=== PATIENT | female | born 1955 | race Caucasian/White ===

== ENCOUNTER 2017-12-16 20:49 | Emergency (ER) | payer MEDICARE, MEDICAID ==
[2017-12-16] MEDS ORDERED: SODIUM CHLORIDE 0.9% 1,000 ML IV ONE ×2 (21:27→22:02)
[2017-12-16] MEDS ORDERED: ONDANSETRON 4 MG/2 ML VIAL IVP STA (21:27)
[2017-12-16 21:38] LABS: BILIRUBIN,URINE NEGATIVE (NEGATIVE); GLUCOSE, URINE (UA) NEGATIVE (NEGATIVE); KETONES,URINE (UA) TRACE mg/dL (NEGATIVE); LEUKOCYTE ESTERASE, URINE LARGE (NEGATIVE); NITRITE,URINE POSITIVE (NEGATIVE); OCCULT BLOOD,URINE MODERATE (NEGATIVE); PH,URINE 5.5 PH (5.0-7.5); PROTEIN,URINE 100 mg/dL (NEGATIVE); UROBILINOGEN,URINE 0.2 (NORMAL) E.U./dL (NORMAL)
[2017-12-16 21:40] LABS: CLARITY,URINE CLOUDY (CLEAR)
[2017-12-16 21:47] LABS: RBC,URINE 0-5 /HPF (0-5); SQUAMOUS EPITHELIAL CELL,UR NONE SEEN (<= Few)
[2017-12-16 21:48] LABS: BACTERIA,URINE Few /HPF (None Seen)
[2017-12-16] MEDS ORDERED: MORPHINE 10 MG/ML VIAL IVP STA (22:02)
[2017-12-16] MEDS ORDERED: cefTRIAXone 1 GM VIAL IVP STA (22:03)
[2017-12-16 22:16] LABS: BASOPHILS % (AUTO) 0.3 %; EOSINOPHILS % (AUTO) 0.1 %; HGB - HEMOGLOBIN 13.9 g/dL (12.0-16.0); LYMPHOCYTES # (AUTO) 0.6 10^3/uL (1.5-3.5); LYMPHOCYTES % (AUTO) 5.8 %; MEAN CORPUSCULAR HEMOGLOBIN 31.3 pg (27.0-31.0); MEAN PLATELET VOLUME 8.1 fL (7.9-10.8); MONOCYTES # (AUTO) 0.3 10^3/uL (0.0-1.0); MONOCYTES % (AUTO) 2.8 %; NEUTROPHILS # (AUTO) 9.9 10^3/uL (1.5-6.6); PLT - PLATELET COUNT 266 10^3/uL (130-450); RED BLOOD COUNT 4.44 10^6/uL (4.20-5.40); RED CELL DISTRIBUTION WIDTH 13.1 % (12.0-15.0); WHITE BLOOD COUNT 10.9 x10^3/uL (4.8-10.8)
[2017-12-16] MEDS ORDERED: WATER FOR INJECTION,STERILE 10 ML ONE (22:19)
--- NOTE | 2017-12-16 22:27 | ED Physician Documentation ---
PD HPI FEMALE - Stated complaint Stated Complaint: ABD PX/VOMITING - Chief complaint Chief Complaint: Abd Pain - History obtained from History obtained from: Patient, Family - History of Present Illness Timing - onset: How many days ago (2) Timing - details: Gradual onset, Still present Associated symptoms: Back pain, Urinary frequency, Hematuria. No: Fever Similar symptoms before: Has not had sx before Recently seen: Not recently seen - Additional information Additional information: Patient is a 62 year old female who denies any significant past medical history aside from daily smoking who is presenting to the emergency department for left sided flank pain, dysuria and nausea. Patient states that the symptoms have been going on for the last few days. Review of Systems Constitutional: reports: Chills. denies: Fever GI: reports: Abdominal Pain, Nausea. denies: Vomiting, Diarrhea, Hematemesis : reports: Dysuria, Frequency Musculoskeletal: reports: Back pain Immunocompromised: denies: Immunocompromised PD PAST MEDICAL HISTORY - Past Surgical History Past Surgical History: Yes General: Appendectomy - Present Medications Home Medications: Ambulatory Orders Medication Instructions Recorded Confirmed Omeprazole [PriLOSEC] 10 mg PO DAILY 01/10/14 01/10/14 Ondansetron [Zofran Odt] 8 mg PO Q6HR PRN #10 tab.rapdis 01/10/14 traMADol [Ultram] 50 mg PO Q4-6H #20 tablet 01/10/14 Ondansetron Odt [Zofran] 4 mg TL Q6H PRN #14 tablet 12/16/17 Phenazopyridine HCl [Pyridium] 200 mg PO TID PRN #6 tablet 12/16/17 Sulfamethox/Trimeth 800/160 1 each PO BID #28 tablet 12/16/17 [Bactrim Ds 800/160] traMADol [Ultram] 50 mg PO Q4-6H #10 tablet 12/16/17 - Allergies Allergies/Adverse Reactions: Allergies Allergy/AdvReac Type Severity Reaction Status Date / Time aspirin Allergy Rash Verified 12/16/17 21:01 - Social History Does the pt smoke?: Yes Smoking Status: Current every day smoker Does the pt drink ETOH?: Yes PD ED PE NORMAL - Vitals Vital signs reviewed: Yes - General General: Alert and oriented X 3 - HEENT HEENT: Atraumatic - Cardiac Cardiac: RRR - Respiratory Respiratory: No respiratory distress - Abdomen Abdomen: Soft, Non distended - Derm Derm: Normal color - Extremities Extremities: No deformity - Neuro Neuro: Alert and oriented X 3 Eye Opening: Spontaneous Motor: Obeys Commands Verbal: Oriented GCS Score: 15 PD ED PE EXPANDED - General General: Alert, In Pain - HEENT HEENT: Dry mucous membranes - Back Back: CVA TTP right Results - Vitals Vitals: Vital Signs - 24 hr 12/16/17 12/16/17 20:57 22:56 Temperature 36.9 C 37.3 C Heart Rate 86 71 Respiratory 18 18 Rate Blood Pressure 114/68 124/69 O2 Saturation 98 95 Oxygen O2 Source Room air - Labs Labs: Laboratory Tests 12/16/17 12/16/17 12/16/17 21:30 21:58 21:58 WBC 10.9 H RBC 4.44 Hgb 13.9 Hct 40.9 MCV 92.0 MCH 31.3 H MCHC 34.0 RDW 13.1 Plt Count 266 MPV 8.1 Neut # (Auto) 9.9 H Lymph # (Auto) 0.6 L [place] # (Auto) 0.3 Eos # (Auto) 0.0 Baso # (Auto) 0.0 Absolute Nucleated RBC 0.00 Nucleated RBC % 0.0 Sodium 135 Potassium 3.3 L Chloride 100 L Carbon Dioxide 26 Anion Gap 9.0 BUN 16 Creatinine 0.9 Estimated GFR (MDRD) 63 L Glucose 128 H Calcium 8.9 Total Bilirubin 1.4 H AST 27 ALT 35 Alkaline Phosphatase 58 Total Protein 7.4 Albumin 3.7 Globulin 3.7 Albumin/Globulin Ratio 1.0 Lipase 23 Urine Color YELLOW Urine Clarity CLOUDY Urine pH 5.5 Ur Specific Section >=1.030 H Urine Protein 100 H Urine Glucose (UA) NEGATIVE Urine Ketones TRACE Urine Occult Blood MODERATE H Urine Nitrite POSITIVE H Urine Bilirubin NEGATIVE Urine Urobilinogen 0.2 (NORMAL) Ur Leukocyte Esterase LARGE H Urine RBC 0-5 Urine WBC >25 H Ur Squamous Epith Cells NONE SEEN Urine Bacteria Few Ur Microscopic Review INDICATED Urine Culture Comments INDICATED PD MEDICAL DECISION MAKING - ED course Complexity details: reviewed old records, reviewed results, re-evaluated patient , considered differential, d/w patient, d/w family ED course: Patient was seen and examined at bedside. Iv access was gained and labs were drawn. patient was treated with ns bolus. Labs were drawn, urine was collected. patient was treated with zofran for nausea. Patient was treated with morphine for pain. Patient was found to have pyelonephritis. patient was treated with rocephin and pyridium. patient responded well to the therapy. patient was non toxic and was able to tolerate PO. patient required no further inpatient work up and was appropriate for discharge with outpatient follow up. - Sepsis Event Vital Signs: Vital Signs - 24 hr 12/16/17 12/16/17 20:57 22:56 Temperature 36.9 C 37.3 C Heart Rate 86 71 Respiratory 18 18 Rate Blood Pressure 114/68 124/69 O2 Saturation 98 95 Oxygen O2 Source Room air Departure - Departure Disposition: 01 Home, Self Care Clinical Impression: Pyelonephritis Condition: Good Instructions: ED Kidney Infec Female Follow-Up: Tiffanie Little ARNP [Primary Care Provider] - Within 3 Days Prescriptions: Ondansetron Odt [Zofran] 4 mg TL Q6H PRN #14 tablet PRN Reason: Nausea / Vomiting Phenazopyridine HCl [Pyridium] 200 mg PO TID PRN #6 tablet PRN Reason: dysuria Sulfamethox/Trimeth 800/160 [Bactrim Ds 800/160] 1 each PO BID #28 tablet traMADol [Ultram] 50 mg PO Q4-6H #10 tablet Comments: Your symptoms today are being caused by a kidney infection. You were started on antibiotics tonight and will be on them for 2 weeks. You should drink about 100oz of fluids a day. You should follow up with your doctor if your symptoms don't improve in the next 3-4 days. You may return to the emergency department at any time for new, worsening or uncontrollable symptoms. Discharge Date/Time: 12/16/17 23:02
[2017-12-16 22:31] LABS: ALBUMIN 3.7 g/dL (3.2-5.5); BILIRUBIN,TOTAL 1.4 mg/dL (0.2-1.0); CALCIUM 8.9 mg/dL (8.5-10.3); CREATININE 0.9 mg/dL (0.4-1.0); TOTAL PROTEIN 7.4 g/dL (6.7-8.2)
[2017-12-16] MEDS ORDERED: PHENAZOPYRIDINE 100 MG TABLET PO STA (22:44)
[2017-12-16 22:56] VITALS: BP 124/69
== END 2017-12-16 23:02 | disposition home or self-care (01) ==
LOC: ED 20:49
DX: N12 Tubulo-interstitial nephritis, not specified as acute or chronic (principal); F17.200 Nicotine dependence, unspecified, uncomplicated
CPT/HCPCS: 36415; 80053; 81001; 83690; 85025; 87086; 96361; 96374; 96375; 99283; 99284; A9270; 81003; 87077; 87181

== ENCOUNTER 2018-03-21 08:00 | Outpatient (CLI) | payer MEDICARE, MEDICAID ==
[2018-03-21 12:58] LABS: BASOPHILS # (AUTO) 0.1 10^3/uL (0.0-0.1); BASOPHILS % (AUTO) 0.7 %; EOSINOPHILS # (AUTO) 0.1 10^3/uL (0.0-0.7); HGB - HEMOGLOBIN 14.4 g/dL (12.0-16.0); LYMPHOCYTES # (AUTO) 2.3 10^3/uL (1.5-3.5); LYMPHOCYTES % (AUTO) 22.6 %; MEAN CORPUSCULAR HEMOGLOBIN 30.8 pg (27.0-31.0); MEAN CORPUSCULAR HGB CONC 33.8 g/dL (32.0-36.0); MEAN CORPUSCULAR VOLUME 91.2 fL (81.0-99.0); MEAN PLATELET VOLUME 8.9 fL (7.9-10.8); MONOCYTES # (AUTO) 0.6 10^3/uL (0.0-1.0); MONOCYTES % (AUTO) 5.4 %; NEUTROPHILS # (AUTO) 7.3 10^3/uL (1.5-6.6); NEUTROPHILS % (AUTO) 70.3 %; PLT - PLATELET COUNT 320 10^3/uL (130-450); RED BLOOD COUNT 4.66 10^6/uL (4.20-5.40); RED CELL DISTRIBUTION WIDTH 13.4 % (12.0-15.0); WHITE BLOOD COUNT 10.3 x10^3/uL (4.8-10.8)
[2018-03-21 13:29] LABS: BILIRUBIN,TOTAL 0.4 mg/dL (0.2-1.0); CALCIUM 9.4 mg/dL (8.5-10.3); CREATININE 0.7 mg/dL (0.4-1.0); TOTAL PROTEIN 7.9 g/dL (6.7-8.2)
== END 2018-03-21 08:01 | disposition home or self-care (01) ==
LOC: LAB.N 08:00
PROVIDERS: ATTEND Family Medicine
DX: R53.83 Other fatigue (principal); R10.30 Lower abdominal pain, unspecified; Z12.11 Encounter for screening for malignant neoplasm of colon
CPT/HCPCS: 36415; 80053; 82150; 83690; 84443; 85025

== ENCOUNTER 2018-10-22 08:05 | Outpatient (CLI) | payer MEDICARE, MEDICAID ==
--- NOTE | 2018-10-22 11:22 | Ultrasound Report ---
Reason: ABDOMINAL HERNIA Procedure Date: 10/22/2018 Accession Number: [id number] / [id number] Procedure: US - Abdomen Limited CPT Code: FULL RESULT: EXAM: ABDOMEN ULTRASOUND LIMITED EXAM DATE: 10/22/2018 08:43 AM. CLINICAL HISTORY: Abdominal hernia. COMPARISON: Comparison is made to a prior CT abdomen and pelvis from 2014. TECHNIQUE: Real-time scanning was performed with static images obtained. FINDINGS: Evaluation of the ventral abdominal wall in the region of prior hernia repair was performed. In the region of the scar and surrounding abdominal wall, no abdominal wall defect is detected. The mesh was partially visualized, limited ability to see deep to the mesh due to calcifications. IMPRESSION: No recurrent hernia is detected. RADIA
== END 2018-10-22 08:06 | disposition home or self-care (01) ==
LOC: DI 08:05
PROVIDERS: ATTEND Physician Assistant Medical
DX: K46.9 Unspecified abdominal hernia without obstruction or gangrene (principal)
CPT/HCPCS: 76705

== ENCOUNTER 2022-05-02 08:00 | Outpatient (CLI) | payer MEDICARE, MEDICAID | END 2022-05-02 23:59 | disposition home or self-care (01) | LOC: LAB.N 08:00 | PROVIDERS: ATTEND Physician Assistant | DX: N10 Acute pyelonephritis (principal) | CPT/HCPCS: 87086; 87181 ==

== ENCOUNTER 2022-05-12 07:38 | Outpatient (CLI) | payer MEDICARE, MEDICAID ==
[2022-05-12 11:46] LABS: BASOPHILS # (AUTO) 0.1 10^3/uL (0.0-0.1); BASOPHILS % (AUTO) 0.9 %; EOSINOPHILS # (AUTO) 0.1 10^3/uL (0.0-0.7); HCT - HEMATOCRIT 21.1 % (37.0-47.0); LYMPHOCYTES # (AUTO) 1.5 10^3/uL (1.5-3.5); LYMPHOCYTES % (AUTO) 15.4 %; MEAN CORPUSCULAR HEMOGLOBIN 16.1 pg (27.0-31.0); MEAN CORPUSCULAR HGB CONC 23.7 g/dL (32.0-36.0); MEAN CORPUSCULAR VOLUME 68.1 fL (81.0-99.0); MONOCYTES # (AUTO) 0.7 10^3/uL (0.0-1.0); MONOCYTES % (AUTO) 7.7 %; NEUTROPHILS % (AUTO) 74.1 %; NRBC ABSOLUTE COUNT (AUTO) 0.06 x10^3/uL; NUCLEATED RED BLOOD CELLS AUTO 0.6 /100WBC; PLT - PLATELET COUNT 559 10^3/uL (130-450); RED CELL DISTRIBUTION WIDTH 20.3 % (12.0-15.0); WHITE BLOOD COUNT 9.4 x10^3/uL (4.8-10.8)
[2022-05-12 12:33] LABS: PLATELET ESTIMATE, MANUAL INCREASED (>450,000) (NORMAL); PLATELET MORPHOLOGY NORMAL APPEARANCE (NORMAL)
[2022-05-12 12:36] LABS: ALBUMIN 3.5 g/dL (3.2-5.5); BILIRUBIN,TOTAL 0.5 mg/dL (0.2-1.0); CALCIUM 8.8 mg/dL (8.5-10.3); CREATININE 0.6 mg/dL (0.4-1.0); TOTAL PROTEIN 7.1 g/dL (6.7-8.2)
[2022-05-12 12:37] LABS: THYROID STIMULATING HORMONE 2.27 uIU/mL (0.34-5.60)
== END 2022-05-12 07:39 | disposition home or self-care (01) ==
LOC: LAB.N 07:38
PROVIDERS: ATTEND Family Medicine
DX: R55 Syncope and collapse (principal)
CPT/HCPCS: 36415; 80053; 81599; 83036; 84443; 85025

== ENCOUNTER 2022-11-21 07:15 | Outpatient (CLI) | payer MEDICARE, MEDICAID ==
[2022-11-21 12:09] LABS: BASOPHILS # (AUTO) 0.1 10^3/uL (0.0-0.1); BASOPHILS % (AUTO) 0.9 %; EOSINOPHILS # (AUTO) 0.1 10^3/uL (0.0-0.7); EOSINOPHILS % (AUTO) 0.9 %; HCT - HEMATOCRIT 31.6 % (37.0-47.0); HGB - HEMOGLOBIN 8.1 g/dL (12.0-16.0); LYMPHOCYTES # (AUTO) 1.6 10^3/uL (1.5-3.5); LYMPHOCYTES % (AUTO) 15.5 %; MEAN CORPUSCULAR HEMOGLOBIN 16.8 pg (27.0-31.0); MEAN CORPUSCULAR HGB CONC 25.6 g/dL (32.0-36.0); MEAN CORPUSCULAR VOLUME 65.4 fL (81.0-99.0); MEAN PLATELET VOLUME 9.7 fL (7.9-10.8); MONOCYTES # (AUTO) 0.7 10^3/uL (0.0-1.0); MONOCYTES % (AUTO) 6.9 %; NEUTROPHILS # (AUTO) 7.9 10^3/uL (1.5-6.6); NEUTROPHILS % (AUTO) 75.4 %; PLT - PLATELET COUNT 430 10^3/uL (130-450); RED BLOOD COUNT 4.83 10^6/uL (4.20-5.40); RED CELL DISTRIBUTION WIDTH 20.8 % (12.0-15.0); WHITE BLOOD COUNT 10.5 x10^3/uL (4.8-10.8)
[2022-11-21 12:12] LABS: ALBUMIN/GLOBULIN RATIO 0.7 (1.0-2.2); BILIRUBIN,TOTAL 0.4 mg/dL (0.2-1.0); CALCIUM 8.4 mg/dL (8.5-10.3); CREATININE 0.7 mg/dL (0.4-1.0); POTASSIUM 3.2 mmol/L (3.5-5.0); TOTAL PROTEIN 7.4 g/dL (6.7-8.2)
== END 2022-11-21 07:30 | disposition home or self-care (01) ==
LOC: LAB.N 07:15
PROVIDERS: ATTEND Nurse Practitioner
DX: N39.0 Urinary tract infection, site not specified (principal); R42 Dizziness and giddiness
CPT/HCPCS: 36415; 80053; 85025; 87086

== ENCOUNTER 2022-11-28 11:27 | Emergency (ER) | payer MEDICARE, MEDICAID ==
--- NOTE | 2022-11-28 11:43 | ED Physician Documentation ---
PD HPI SYNCOPE - Stated complaint Stated Complaint: DIZZINESS - Chief complaint Chief Complaint: Neuro - History obtained from History obtained from: Patient - History of Present Illness Timing - onset: How many months ago (ongoing problem of lightheadedness, general weakness, pallor. History of anemia and low iron despite oral supplements. Has not had iron infusions. No melena/gllody stools, no nosebleeds, no easy bruising. Was seen in [facility] 1 wk ago and had blood count done, with results 8.1. Today told to go ER.) Duration: Other (she feels lightheaded with standing and activity, but no syncope. The ligheaded does improve once up.) Preceding symptoms: Dyspnea, Light headed, Generalized weakness. No: Headache, Chest pain, Palpitations Contributing factors: Just stood up, Exertion, Other (this has been ongoing for months or more. Had low blood count last Nov with transfusion 3 units. Had not had regular follow up in the interval.). No: Recent med change, Decreased PO intake Similar symptoms before: Diagnosis (had has iron deficincy anemia Dx since last year. She denies history of GI bleeding/ulcers. No melena.) Recently seen: Clinic (seen at [facility] a week ago for this and had blood count done with Hgb 8.1. Seen walk in again today and told to go to ER for transfusion, according to patient. No call from [facility] clinic.) Review of Systems Cardiac: denies: Chest pain / pressure, Palpitations, Pedal edema, Calf pain Respiratory: reports: Dyspnea. denies: Cough, Wheezing GI: denies: Abdominal Pain, Hematemesis, Bloody / black stool Neurologic: reports: Generalized weakness, Near syncope (very lightheaded when standing up the past few weeks.). denies: Syncope PD PAST MEDICAL HISTORY - Past Medical History Cardiovascular: None Respiratory: None Neuro: None Endocrine/Autoimmune: None - Past Surgical History Past Surgical History: Yes General: Appendectomy - Present Medications Home Medications: Ambulatory Orders Medication Instructions Recorded Confirmed Omeprazole [PriLOSEC] 10 mg PO DAILY 01/10/14 01/10/14 Ondansetron [Zofran Odt] 8 mg PO Q6HR PRN #10 tab.rapdis 01/10/14 traMADol [Ultram] 50 mg PO Q4-6H #20 tablet 01/10/14 Ondansetron Odt [Zofran] 4 mg TL Q6H PRN #14 tablet 12/16/17 Phenazopyridine HCl [Pyridium] 200 mg PO TID PRN #6 tablet 12/16/17 Sulfamethox/Trimeth 800/160 1 each PO BID #28 tablet 12/16/17 [Bactrim Ds 800/160] traMADol [Ultram] 50 mg PO Q4-6H #10 tablet 12/16/17 Ferrous Sulfate 325 mg PO DAILY 11/28/22 11/28/22 Potassium Chloride [K-Dur] 20 meq PO DAILY 11/28/22 11/28/22 - Allergies Allergies/Adverse Reactions: Allergies Allergy/AdvReac Type Severity Reaction Status Date / Time aspirin Allergy Rash Verified 11/28/22 11:37 - Social History Does the pt smoke?: Yes Smoking Status: Current every day smoker Does the pt drink ETOH?: Yes PD ED PE NORMAL - Vitals Vital signs reviewed: Yes - General General: Alert and oriented X 3, No acute distress, Well developed/nourished - HEENT HEENT: Pharynx benign - Cardiac Cardiac: RRR, No murmur - Respiratory Respiratory: Clear bilaterally - Abdomen Abdomen: Soft, Non tender, Non distended - Derm Derm: Warm and dry. No: Normal color (mild pallor) - Extremities Extremities: No edema, No calf tenderness / cord - Neuro Neuro: Alert and oriented X 3, No motor deficit, Normal speech Results - Vitals Vitals: Vital Signs - 24 hr 11/28/22 11/28/22 13:04 14:00 Heart Rate 86 Heart Rate [ 78 Sitting] Heart Rate [ 86 Standing] Heart Rate [ 70 Supine] Respiratory 18 Rate Blood Pressure 109/80 Blood Pressure 119/72 [Sitting] Blood Pressure 109/72 [Standing] Blood Pressure 114/73 [Supine] O2 Saturation 97 Oxygen O2 Source Room air - Labs Labs: Laboratory Tests 11/28/22 11/28/22 11/28/22 12:29 12:29 12:29 WBC 6.5 RBC 4.88 Hgb 8.5 L Hct 32.4 L MCV 66.4 L MCH 17.4 L MCHC 26.2 L RDW 22.6 H Plt Count 562 H MPV 9.0 Neut # (Auto) 4.4 Lymph # (Auto) 1.5 Noble # (Auto) 0.5 Eos # (Auto) 0.1 Baso # (Auto) 0.1 Absolute Nucleated RBC 0.00 Nucleated RBC % 0.0 Manual Slide Review Indicated Platelet Estimate INCREASED (>450,000) Platelet Morphology NORMAL APPEARANCE RBC Morph Micro Appear 1+ HYPOCHROMASIA Sodium 138 Potassium 4.1 Chloride 105 Carbon Dioxide 26 Anion Gap 7.0 BUN 20 Creatinine 0.6 Estimated GFR (MDRD) 100 Glucose 119 H Calcium 8.6 Magnesium 2.0 Total Bilirubin 0.3 AST 21 ALT 24 Alkaline Phosphatase 112 Total Protein 7.5 Albumin 3.2 Globulin 4.3 H Albumin/Globulin Ratio 0.7 L Lipase 75 H Blood Type A POSITIVE Blood Type Recheck Antibody Screen NEGATIVE 11/28/22 12:48 WBC RBC Hgb Hct MCV MCH MCHC RDW Plt Count MPV Neut # (Auto) Lymph # (Auto) Noble # (Auto) Eos # (Auto) Baso # (Auto) Absolute Nucleated RBC Nucleated RBC % Manual Slide Review Platelet Estimate Platelet Morphology RBC Morph Micro Appear Sodium Potassium Chloride Carbon Dioxide Anion Gap BUN Creatinine Estimated GFR (MDRD) Glucose Calcium Magnesium Total Bilirubin AST ALT Alkaline Phosphatase Total Protein Albumin Globulin Albumin/Globulin Ratio Lipase Blood Type Blood Type Recheck A POSITIVE Antibody Screen PD Medical Decision Making - ED course Complexity details: reviewed results, considered differential (she is anemic from last week and recheck today is slightly higher at 8.5. Does not meet transfusion criteria of 7 (8 if had CHF/ACS/current bleeding). further eval and treatment of the anemia would be outpt workup. consider trying other iron preps or even schedule MAC iron infusion through PMD. ), d/w patient Departure - Departure Disposition: 01 Home, Self Care Clinical Impression: Postural lightheadedness, Anemia, Fatigue Condition: Stable Record reviewed to determine appropriate education?: Yes Instructions: ED Near Syncope Unkn Comments: Your hemoglobin today is 8.5 which is increased from the 8.1 last week. This is above the level for transfusion which is typically hemoglobin of 7. You are still anemic and so some level of fatigue and lightheadedness can make sense. Continue with your iron. Be sure to stay well-hydrated to help with any lightheadedness feeling as well. Discharge Date/Time: 11/28/22 14:01
--- OUTSIDE RECORDS SUMMARY | 2022-11-28 12:33 | EXTERNAL MEDICAL SUMMARY RPT | Continuity of Care Document ---
Author Name Unknown Address [address] [place] [address] Phone Organization [facility] Address [address] [phone] Phone Problems date description facility 2022-09-27 15:26 [facility] 2022-09-27 15:27 [facility] and [facility] 2022-10-13 13:41 [facility] 2022-10-13 13:42 [facility] 2022-10-16 11:29 [facility]
[2022-11-28 12:37] LABS: BASOPHILS # (AUTO) 0.1 10^3/uL (0.0-0.1); BASOPHILS % (AUTO) 0.8 %; EOSINOPHILS # (AUTO) 0.1 10^3/uL (0.0-0.7); EOSINOPHILS % (AUTO) 1.4 %; HCT - HEMATOCRIT 32.4 % (37.0-47.0); HGB - HEMOGLOBIN 8.5 g/dL (12.0-16.0); LYMPHOCYTES # (AUTO) 1.5 10^3/uL (1.5-3.5); MEAN CORPUSCULAR HEMOGLOBIN 17.4 pg (27.0-31.0); MEAN CORPUSCULAR HGB CONC 26.2 g/dL (32.0-36.0); MEAN CORPUSCULAR VOLUME 66.4 fL (81.0-99.0); MONOCYTES # (AUTO) 0.5 10^3/uL (0.0-1.0); MONOCYTES % (AUTO) 6.9 %; NEUTROPHILS # (AUTO) 4.4 10^3/uL (1.5-6.6); NEUTROPHILS % (AUTO) 67.3 %; PLT - PLATELET COUNT 562 10^3/uL (130-450); RED BLOOD COUNT 4.88 10^6/uL (4.20-5.40); RED CELL DISTRIBUTION WIDTH 22.6 % (12.0-15.0); WHITE BLOOD COUNT 6.5 x10^3/uL (4.8-10.8)
[2022-11-28 12:38] LABS: SLIDE REVIEW? Indicated
[2022-11-28 12:53] LABS: PLATELET ESTIMATE, MANUAL INCREASED (>450,000) (NORMAL); PLATELET MORPHOLOGY NORMAL APPEARANCE (NORMAL)
[2022-11-28 12:57] LABS: ALBUMIN 3.2 g/dL (3.2-5.5); ALBUMIN/GLOBULIN RATIO 0.7 (1.0-2.2); BILIRUBIN,TOTAL 0.3 mg/dL (0.2-1.0); CALCIUM 8.6 mg/dL (8.5-10.3); CREATININE 0.6 mg/dL (0.4-1.0); POTASSIUM 4.1 mmol/L (3.5-5.0); TOTAL PROTEIN 7.5 g/dL (6.7-8.2)
[2022-11-28 14:02] VITALS: BP 109/80
== END 2022-11-28 14:01 | disposition home or self-care (01) ==
LOC: ED 11:27
DX: D64.9 Anemia, unspecified (principal); R53.83 Other fatigue; R42 Dizziness and giddiness; F17.200 Nicotine dependence, unspecified, uncomplicated
CPT/HCPCS: 36415; 80053; 83690; 83735; 85025; 86850; 86900; 86901; 99283

== ENCOUNTER 2023-08-29 19:33 | Emergency (ER) | payer MEDICARE, MEDICAID ==
[2023-08-29 20:00] LABS: BASOPHILS # (AUTO) 0.1 10^3/uL (0.0-0.1); BASOPHILS % (AUTO) 0.5 %; EOSINOPHILS % (AUTO) 0.3 %; HCT - HEMATOCRIT 29.7 % (37.0-47.0); LYMPHOCYTES # (AUTO) 2.2 10^3/uL (1.5-3.5); LYMPHOCYTES % (AUTO) 16.6 %; MEAN CORPUSCULAR HEMOGLOBIN 20.4 pg (27.0-31.0); MEAN CORPUSCULAR HGB CONC 26.9 g/dL (32.0-36.0); MEAN CORPUSCULAR VOLUME 75.8 fL (81.0-99.0); MEAN PLATELET VOLUME 9.7 fL (7.9-10.8); MONOCYTES # (AUTO) 0.9 10^3/uL (0.0-1.0); MONOCYTES % (AUTO) 6.9 %; NEUTROPHILS % (AUTO) 74.7 %; PLT - PLATELET COUNT 499 10^3/uL (130-450); RED BLOOD COUNT 3.92 10^6/uL (4.20-5.40); WHITE BLOOD COUNT 13.4 x10^3/uL (4.8-10.8)
[2023-08-29 20:11] LABS: ALBUMIN 3.5 g/dL (3.2-5.5); BILIRUBIN,TOTAL 0.3 mg/dL (0.2-1.0); CALCIUM 8.7 mg/dL (8.5-10.3); CREATININE 0.8 mg/dL (0.6-1.3); MAGNESIUM 1.6 mg/dL (1.7-2.3); POTASSIUM 3.6 mmol/L (3.5-4.5); TOTAL PROTEIN 7.1 g/dL (6.4-8.9)
--- NOTE | 2023-08-29 20:32 | ED Physician Documentation ---
History of Present Illness - Stated complaint Stated Complaint: DIZZY - Chief complaint Chief Complaint: Neuro - Treatment prior to arrival Treatment prior to arrival: 67 year old female presents to the ER for Dizziness. Patient says that she had a blood transfusion about a year and a half ago and they were unable to find any source of bleeding. When asked what of doctor she saw she says that she is unsure. Patient also reports she has "mash" in her stomach and has been having increased abdominal pain over the last couple weeks. She says she has chronic abdominal pain over the last 6 months or so but worse over the last couple wee ks. About 2 weeks ago she had flulike symptoms which is when her dizziness started she had multiple episodes of diarrhea but no dark black bowel movements no hematochezia no hematemesis. Flulike symptoms and now fully resolved but she feels ongoing dizziness. PD PAST MEDICAL HISTORY - Past Medical History Past Medical History: Yes Cardiovascular: None Respiratory: None Neuro: None Endocrine/Autoimmune: None - Past Surgical History Past Surgical History: Yes General: Appendectomy - Present Medications Home Medications: Ambulatory Orders Medication Instructions Recorded Confirmed Omeprazole [PriLOSEC] 10 mg PO DAILY 01/10/14 01/10/14 Ondansetron [Zofran Odt] 8 mg PO Q6HR PRN #10 tab.rapdis 01/10/14 traMADol [Ultram] 50 mg PO Q4-6H #20 tablet 01/10/14 Ondansetron Odt [Zofran] 4 mg TL Q6H PRN #14 tablet 12/16/17 Phenazopyridine HCl [Pyridium] 200 mg PO TID PRN #6 tablet 12/16/17 Sulfamethox/Trimeth 800/160 1 each PO BID #28 tablet 12/16/17 [Bactrim Ds 800/160] traMADol [Ultram] 50 mg PO Q4-6H #10 tablet 12/16/17 Ferrous Sulfate 325 mg PO DAILY 11/28/22 11/28/22 Potassium Chloride [K-Dur] 20 meq PO DAILY 11/28/22 11/28/22 - Allergies Allergies/Adverse Reactions: Allergies Allergy/AdvReac Type Severity Reaction Status Date / Time aspirin Allergy Rash Verified 08/29/23 19:37 - Social History Does the pt smoke?: Yes Smoking Status: Current every day smoker Does the pt drink ETOH?: Yes Does the pt have substance abuse?: No - Immunizations Immunizations are current?: Yes - POLST Patient has POLST: No PD ED PE NORMAL - Vitals Vital signs reviewed: Yes - General General: Alert and oriented X 3, No acute distress - HEENT HEENT: Atraumatic, PERRL - Cardiac Cardiac: No murmur, No gallop, Strong equal pulses, Other (tachy) - Abdomen Abdomen: Soft, Other (harris) - Derm Derm: Warm and dry, No rash, Other (pale) - Extremities Extremities: No deformity - Neuro Neuro: Alert and oriented X 3, sports cartoonist 2-12 intact, No motor deficit, No sensory deficit, Normal speech Eye Opening: Spontaneous Motor: Obeys Commands Verbal: Oriented GCS Score: 15 - Psych Psych: Normal mood Results - Vitals Vitals: Vital Signs - 24 hr 08/29/23 19:37 Temperature 36.8 C Heart Rate 120 H Respiratory 16 Rate Blood Pressure 151/90 H O2 Saturation 100 Oxygen O2 Source Room air - EKG (time done) 2040 EKG releavant findings:: EKG personally interpreted by author of this note. Relevant findings are: Rate: Rate (enter#) (84) Rhythm: NSR [place]: Normal Intervals: Normal [place] QRS: Normal Ischemia: Normal ST segments Computer interpretation: Agree with computer - Labs Labs: Laboratory Tests 08/29/23 08/29/23 19:51 19:51 WBC 13.4 H RBC 3.92 L Hgb 8.0 L Hct 29.7 L MCV 75.8 L MCH 20.4 L MCHC 26.9 L RDW 23.0 H Plt Count 499 H MPV 9.7 Neut # (Auto) 10.0 H Lymph # (Auto) 2.2 [place] # (Auto) 0.9 Eos # (Auto) 0.0 Baso # (Auto) 0.1 Absolute Nucleated RBC 0.00 Nucleated RBC % 0.0 Platelet Estimate INCREASED (>450,000) Platelet Morphology NORMAL APPEARANCE RBC Morph Micro Appear 1+ POLYCHROMASIA Sodium 137 Potassium 3.6 Chloride 101 Carbon Dioxide 27 Anion Gap 9.0 BUN 27 H Creatinine 0.8 Estimated GFR (MDRD) 72 L Glucose 130 H Calcium 8.7 Magnesium 1.6 L Total Bilirubin 0.3 AST 19 ALT 25 Alkaline Phosphatase 117 Total Protein 7.1 Albumin 3.5 Globulin 3.6 Albumin/Globulin Ratio 1.0 PD Medical Decision Making - ED course ED course: 67-year-old female presents emergency department for dizziness and abdominal pain. When I reviewed the patient's labs in 2017 she had a normal hemoglobin and he matocrit in May 2022 her hemoglobin was found to be 5.0. Patient is a pretty poor historian overall she is unable to tell me what kind of doctor she saw after that but she says that they were unable to find any source of bleeding. She has had multiple repeat visits to the emergency department since then and hemoglobin is always found to be in the eights I am not seeing any iron labs that have been completed. Today patient does have an elevated white count at 13.4, she does have anemia, hemoglobin 8.0, hematocrit 29.7, platelets elevated at 499, neutrophils are also elevated at 10.0. Chemistry also complete BUN elevated at 27, GFR 72. Pt states she has not had a colonoscopy endoscopy and is unsure if she has a PCP, overall poor historian. Report given to Dr. Anderson who is further managing patients care due to change of shift. I have updated the pt she will not need a blood transfusion at this time. 1 L IVF ordered for what I presume is mild dehydration and Hypovolemia which could be contributing to her dizziness. Departure - Departure Forms: PCP List
[2023-08-29 20:45] LABS: PLATELET ESTIMATE, MANUAL INCREASED (>450,000) (NORMAL); PLATELET MORPHOLOGY NORMAL APPEARANCE (NORMAL)
[2023-08-29] MEDS ORDERED: iohexoL-300 100 ML VIAL ONE (21:03)
[2023-08-29] MEDS: iohexoL-300 100 ML VIAL IVP ONE (21:24)
[2023-08-29 21:38] LABS: BILIRUBIN,URINE NEGATIVE (NEGATIVE); GLUCOSE, URINE (UA) NEGATIVE (NEGATIVE); KETONES,URINE (UA) NEGATIVE (NEGATIVE); LEUKOCYTE ESTERASE, URINE LARGE (NEGATIVE); NITRITE,URINE POSITIVE (NEGATIVE); OCCULT BLOOD,URINE SMALL (NEGATIVE); PH,URINE 6.5 PH (5.0-7.5); PROTEIN,URINE 30 mg/dL (NEGATIVE); UROBILINOGEN,URINE 0.2 (NORMAL) E.U./dL (NORMAL)
[2023-08-29 21:51] LABS: % IRON SATURATION 28 % (20-50); IRON 130 ug/dL (50-212); TOTAL IRON BINDING CAPACITY 461 ug/dL (250-450); TRANSFERRIN 329 mg/dL (203-362)
[2023-08-29] MEDS: SODIUM CHLORIDE 0.9% 1,000 ML IV ONE (21:56)
[2023-08-29 22:00] LABS: BACTERIA,URINE Many /HPF (None Seen); CLARITY,URINE CLD (CLEAR); RBC,URINE 0-5 /HPF (0-5); SQUAMOUS EPITHELIAL CELL,UR FEW Squamous (<= Few); WBC CLUMPS,URINE PRESENT; WBC,URINE >25 /HPF (0-5)
[2023-08-29 22:01] VITALS: BP 135/74; O2SAT 98
--- NOTE | 2023-08-29 22:11 | CT Report ---
PROCEDURE: Abdomen/Pelvis W INDICATIONS: generalized abdominal pain CONTRAST: 100mL Omni 300 TECHNIQUE: After the administration of intravenous contrast, a CT scan of the abdomen and pelvis was performed. Images were recorded and evaluated at appropriate window settings. Reformats: coronal and sagittal. F or radiation dose reduction, the following was used: automated exposure control, adjustment of mA and /or kV according to patient size. COMPARISON: None FINDINGS: Image quality: Diagnostic. Lower chest: Unremarkable. Liver: No solid mass. Gallbladder and biliary tree: No radiopaque stones or wall thickening. No biliary dilation. Spleen: No splenomegaly. Pancreas: No pancreatic ductal dilation. Adrenals: No adrenal nodule. Kidneys and ureters: Moderate hydronephrosis. Severe right hydroureter. There is heterogeneous enhanc ing structure within the right distal ureter with dilatation of the ureter measuring approximately 1. 7 x 1.5 cm and transverse and at least 6 cm in craniocaudal dimension. No left hydroureteronephrosis. Subcentimeter hypodensities in the bilateral kidneys, too small to exactly characterize and could re present simple cysts. Stomach, bowel and peritoneum: Moderate hiatal hernia. No bowel distension. No pathologic free fluid. Diverticulosis without evidence of diverticulitis. Lymph nodes: No central or retroperitoneal adenopathy. Vessels: No infrarenal aortic aneurysm. Atherosclerotic vascular calcifications. PELVIS Reproductive organs: Unremarkable. Bladder: No abnormal wall thickening, accounting for underdistention. Pelvic lymph nodes: No pelvic adenopathy by size criteria. Bones: No aggressive osseous abnormality. Other: No significant ventral or inguinal hernia. IMPRESSION: 1.Heterogeneous enhancing lesion within the distal right ureter resulting in severe right hydroureter and moderate hydronephrosis. Findings are concerning for malignancy. Recommend cystoscopy for furthe r evaluation. 2.Diverticulosis without evidence of acute diverticulitis. 3.Moderate hiatal hernia. Reviewed by: Quique Palencia MD on 08/29/2023 10:10 PM PST Approved by: Quique Palencia MD on 08/29/2023 10:10 PM PST Station ID: [id number]
--- NOTE | 2023-08-29 22:36 | ED Physician Documentation ---
ED Addendum - Addendum Addendum: 08/29/23 22:35 Signout from nurse practitioner at 10 PM shift change pending urinalysis and CT. She does have pyuria and the CT was done showing hyperenhancing mass at the left ureter causing hydronephrosis. This was discussed with patient and the gravity of the findings including the were words potential cancer were used. She understands and I did touch base with our urologist, Dr. Tinoco who agrees with empiric antibiotics and follow-up in the clinic. The patient refused to s doyle in the hospital having to take care of her dog. I did discuss with her that it is potential that she may become septic at any time from the blocked ureter (and thus or become irroevocably disabled) and pyuria and she voices understanding and wants to go home anyway. I discussed with her the need for close follow-up with both urology as well as hematology for her unexplained anemia. Disposition: Discharged home Condition: Stable Diagnosis: 1. Pyelonephritis 2. Hydronephrosis 3. Anemia 4. Possible Ureteral or bladder CA
[2023-08-29] MEDS: cephALEXin 250 MG CAPSULE PO STA (22:40)
== END 2023-08-29 22:43 | disposition home or self-care (01) ==
LOC: ED 19:33
DX: N12 Tubulo-interstitial nephritis, not specified as acute or chronic (principal); R82.81 Pyuria; N13.30 Unspecified hydronephrosis; N13.4 Hydroureter; D64.9 Anemia, unspecified; F17.200 Nicotine dependence, unspecified, uncomplicated
CPT/HCPCS: 36415; 74177; 80053; 81001; 83540; 83735; 84466; 85025; 93005; 96360; 99284; A9270; Q9967

== ENCOUNTER 2023-10-15 15:30 | Outpatient (CLI) | payer MEDICARE, MEDICAID ==
[2023-10-15 17:50] LABS: ALBUMIN 3.5 g/dL (3.2-5.5); ALBUMIN/GLOBULIN RATIO 1.1 (1.0-2.2); BILIRUBIN,TOTAL 0.2 mg/dL (0.2-1.0); CREATININE 0.7 mg/dL (0.6-1.3); POTASSIUM 3.9 mmol/L (3.5-4.5); TOTAL PROTEIN 6.7 g/dL (6.4-8.9)
[2023-10-15 19:00] LABS: BASOPHILS % (AUTO) 0.2 %; EOSINOPHILS % (AUTO) 0.2 %; HCT - HEMATOCRIT 20.9 % (37.0-47.0); LYMPHOCYTES # (AUTO) 1.5 10^3/uL (1.5-3.5); LYMPHOCYTES % (AUTO) 10.8 %; MEAN CORPUSCULAR HEMOGLOBIN 19.8 pg (27.0-31.0); MEAN CORPUSCULAR HGB CONC 27.8 g/dL (32.0-36.0); MEAN CORPUSCULAR VOLUME 71.3 fL (81.0-99.0); MEAN PLATELET VOLUME 9.9 fL (7.9-10.8); MONOCYTES # (AUTO) 0.7 10^3/uL (0.0-1.0); MONOCYTES % (AUTO) 4.8 %; NEUTROPHILS # (AUTO) 11.6 10^3/uL (1.5-6.6); NEUTROPHILS % (AUTO) 82.6 %; NRBC ABSOLUTE COUNT (AUTO) 0.05 x10^3/uL; NUCLEATED RED BLOOD CELLS AUTO 0.4 /100WBC; PLT - PLATELET COUNT 447 10^3/uL (130-450); RED BLOOD COUNT 2.93 10^6/uL (4.20-5.40)
[2023-10-15 19:09] LABS: HGB - HEMOGLOBIN 5.8 g/dL (12.0-16.0); SLIDE REVIEW? Indicated
[2023-10-15 19:11] LABS: PLATELET ESTIMATE, MANUAL INCREASED (>450,000) (NORMAL); PLATELET MORPHOLOGY NORMAL APPEARANCE (NORMAL)
== END 2023-10-15 15:45 | disposition home or self-care (01) ==
LOC: LAB.N 15:30
PROVIDERS: ATTEND Physician Assistant Medical
DX: R42 Dizziness and giddiness (principal); R19.5 Other fecal abnormalities; R35.0 Frequency of micturition
CPT/HCPCS: 36415; 80053; 82150; 83540; 83690; 84466; 85025; 87086

== ENCOUNTER 2023-10-15 19:58 | Observation (INO) | payer MEDICARE, MEDICAID ==
--- NOTE | 2023-10-15 20:32 | ED Physician Documentation ---
History of Present Illness - Stated complaint Stated Complaint: SENT BY CLINIC - Chief complaint Chief Complaint: Neuro - History obtained from History obtained from: Patient - History of Present Illness Timing: Today Pain level max: 0 Pain level now: 0 - Additonal information Additional information: 67-year-old female presents to the emergency department stating that she has had dark stools for several weeks. She states she is scheduled to meet with a surgeon for colonoscopy on . She states that she has not met with them yet. She had outpatient labs drawn today hemoglobin found to be 5.8 and sent here for evaluation. Her iron levels are also extremely low. No abdominal pain. No fevers. She states she does not drink. Does not use NSAIDs or aspirin. Not on blood thinners. Review of Systems Constitutional: denies: Fever, Chills Respiratory: denies: Dyspnea, Cough GI: denies: Nausea, Vomiting, Diarrhea, Hematemesis : denies: Dysuria, Frequency Skin: denies: Rash Musculoskeletal: denies: Neck pain, Back pain Neurologic: denies: Headache PD PAST MEDICAL HISTORY - Past Medical History Past Medical History: Yes Cardiovascular: None Respiratory: None Neuro: None Endocrine/Autoimmune: None - Past Surgical History Past Surgical History: Yes General: Appendectomy Ortho: Other - Present Medications Home Medications: Ambulatory Orders Medication Instructions Recorded Confirmed Sulfamethoxazole/Trimethoprim 1 each PO DAILY 10/15/23 10/15/23 [Bactrim 400-80 mg Tablet] - Allergies Allergies/Adverse Reactions: Allergies Allergy/AdvReac Type Severity Reaction Status Date / Time aspirin Allergy Rash Verified 10/15/23 20:16 - Social History Does the pt smoke?: No Smoking Status: Former smoker Does the pt drink ETOH?: No Does the pt have substance abuse?: No - Immunizations Immunizations are current?: Yes - POLST Patient has POLST: No PD ED PE NORMAL - Vitals Vital signs reviewed: Yes - General General: Alert and oriented X 3, No acute distress, Other (pale appearing) - HEENT HEENT: Moist mucous membranes, Other (pale conjunctiva) - Neck Neck: Supple, no meningeal sign - Cardiac Cardiac: RRR, Strong equal pulses - Respiratory Respiratory: No respiratory distress, Clear bilaterally - Abdomen Abdomen: Soft, Non tender, Non distended - Rectal Rectal: Pt declined - Derm Derm: Warm and dry - Extremities Extremities: No edema - Neuro Neuro: Alert and oriented X 3 Results - Vitals Vitals: Vital Signs - 24 hr 10/15/23 20:08 Temperature 37.1 C Heart Rate 80 Respiratory 16 Rate Blood Pressure 95/50 L O2 Saturation 98 Oxygen O2 Source Room air PD Medical Decision Making - ED course Complexity details: reviewed results, re-evaluated patient, considered differential, d/w patient, d/w insurance healthcare consultant ED course: 67-year-old female with melena for several weeks. She is agreeable to observation for blood transfusion. She does not want to have a colonoscopy or endoscopy while she is in the hospital. She is not on blood thinners. Hospitalist will be consulted for observation. Patient is given IV Protonix as well for presumed upper GI bleed. Patient states she does not drink alcohol or smoke. No history of cirrhosis or varices. This document was made in part using voice recognition software. While efforts are made to proofread this document, sound alike and grammatical errors may occur. Departure - Departure Disposition: ED Place in Observation Clinical Impression: Anemia Qualifiers: Anemia type: unspecified type Qualified Code(s): D64.9 - Anemia, unspecified GI bleed Qualifiers: GI bleed type/associated pathology: melena Qualified Code(s): K92.1 - Melena Condition: Stable Forms: PCP List
[2023-10-15 20:41] LABS: BASOPHILS % (AUTO) 0.2 %; EOSINOPHILS % (AUTO) 0.2 %; LYMPHOCYTES # (AUTO) 1.6 10^3/uL (1.5-3.5); LYMPHOCYTES % (AUTO) 12.2 %; MEAN CORPUSCULAR HEMOGLOBIN 19.2 pg (27.0-31.0); MEAN CORPUSCULAR HGB CONC 27.5 g/dL (32.0-36.0); MEAN CORPUSCULAR VOLUME 69.9 fL (81.0-99.0); MEAN PLATELET VOLUME 9.3 fL (7.9-10.8); MONOCYTES # (AUTO) 0.8 10^3/uL (0.0-1.0); MONOCYTES % (AUTO) 5.8 %; NEUTROPHILS # (AUTO) 10.5 10^3/uL (1.5-6.6); NEUTROPHILS % (AUTO) 80.5 %; NRBC ABSOLUTE COUNT (AUTO) 0.02 x10^3/uL; NUCLEATED RED BLOOD CELLS AUTO 0.2 /100WBC; PLT - PLATELET COUNT 445 10^3/uL (130-450); RED BLOOD COUNT 2.86 10^6/uL (4.20-5.40); RED CELL DISTRIBUTION WIDTH 22.3 % (12.0-15.0)
[2023-10-15 20:48] LABS: HGB - HEMOGLOBIN 5.5 g/dL (12.0-16.0)
[2023-10-15] MEDS: PANTOPRAZOLE 40 MG VIAL IVP STA (20:48)
[2023-10-15 20:54] LABS: ALBUMIN 3.5 g/dL (3.2-5.5); ALBUMIN/GLOBULIN RATIO 1.1 (1.0-2.2); BILIRUBIN,TOTAL 0.2 mg/dL (0.2-1.0); CALCIUM 8.6 mg/dL (8.5-10.3); CREATININE 0.7 mg/dL (0.6-1.3); POTASSIUM 3.4 mmol/L (3.5-4.5); TOTAL PROTEIN 6.7 g/dL (6.4-8.9)
[2023-10-15] MEDS ORDERED: ACETAMINOPHEN 325 MG TABLET PO PRN (20:55)
[2023-10-15] MEDS ORDERED: ONDANSETRON 4 MG/2 ML VIAL IVP PRN (20:55)
[2023-10-15] MEDS ORDERED: ZOLPIDEM 5 MG TABLET PO PRN (20:55)
[2023-10-15 21:10] LABS: INR 1.2 (0.8-1.2); PT - PROTHROMBIN TIME 12.5 secs (9.9-12.6)
--- NOTE | 2023-10-15 21:16 | HISTORY & PHYSICAL EXAMINATION ---
Chief Complaint - Chief Complaint Chief Complaint: Symoptomatic anemia History of Present Illness - Admitted From Admitted From:: home - History Obtained From Records Reviewed: Yes History obtained from: Patient, ER team Exam Limitations: none - History of Present Illness HPI Comment/Other: 67-year-old female presents to the emergency department stating that she has had dark stools for several weeks. She states she is scheduled to meet with a surgeon for colonoscopy on . She states that she has not met with them yet. She had outpatient labs drawn today hemoglobin found to be 5.8 and sent here for evaluation. Her iron levels are also extremely low. No abdominal pain. No fevers. She states she does not drink. Does not use NSAIDs or aspirin. 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, currently lives with a roommate no other active complaints History - Past Medical History Cardiovascular: reports: None Respiratory: reports: None Neuro: reports: None Endocrine/Autoimmune: reports: None - Past Surgical History General: reports: Appendectomy Ortho: reports: Other - POLST Patient has POLST: No Meds/Allgy - Home Medications Home Medications: Ambulatory Orders Medication Instructions Recorded Confirmed Sulfamethoxazole/Trimethoprim 1 each PO DAILY 10/15/23 10/15/23 [Bactrim 400-80 mg Tablet] - Allergies Allergies/Adverse Reactions: Allergies Allergy/AdvReac Type Severity Reaction Status Date / Time aspirin Allergy Rash Verified 10/15/23 20:16 Review of Systems - Constitutional Constitutional: reports: Other (14 system review done and as per HPI) Prior Level of Functionality: Independent with ADL Exam - Vital Signs Vital Signs: Vital Signs x48h Temp Pulse Resp BP Pulse Ox 10/15/23 20:08 37.1 C 80 16 95/50 L 98 - Physical Exam General Appearance: positive: No acute distress, Alert Eyes Bilateral: positive: Normal inspection, PERRL ENT: positive: ENT inspection nml, No signs of dehydration Neck: positive: No JVD Respiratory: positive: Chest non-tender, No respiratory distress Cardiovascular: positive: Regular rate & rhythm Abdomen: positive: Non-tender Back: positive: Nml inspection Skin: positive: No rash, Warm Extremities: positive: Non-tender, Full ROM, Nml appearance Neurologic/Psychiatric: positive: Oriented x3, CN's nml (2-12) Sepsis Event Note (H) - Evaluation Current Stage of Sepsis: Ruled out Conclusion/Plan - Problem List (1) Anemia Conclusion/Plan: Iron def anemia based on numbers Need EGD and coloonoisocpy Need iron supplement Refusing while in house for now will transfuse 2-3 units of PRBC and repeat cbc after all unit completed follow protocol for PRBC transfusion Qualifiers: Anemia type: iron deficiency Qualified Code(s): D64.9 - Anemia, unspecified (2) GI bleed Conclusion/Plan: No active gross bleeding Concenrs for Melelna, concnerns for colon malignancy will check CEA levek Continue supportive care Morning team to readdress the need for CBC and colonoscopy will keep her NPO for now Tranfuse 2-3 units of PRBC Discussed with patient and she agrees fo rPRBC transfusion Qualifiers: GI bleed type/associated pathology: melena Qualified Code(s): K92.1 - Melena (3) Hypokalemia Conclusion/Plan: K is 3.4 Patient scheduled to get 3 units of PRBC monitor for now, repeat after 3 units of PRBC and if low supplement - Lab Results Fish Bones: 10/15/23 20:29 10/15/23 20:29 - EKG Results EKG Interpreted Independently: No
[2023-10-15 22:07] LABS: PLATELET ESTIMATE, MANUAL INCREASED (>450,000) (NORMAL); PLATELET MORPHOLOGY NORMAL APPEARANCE (NORMAL)
[2023-10-15] MEDS: SODIUM CHLORIDE 0.9% 500 ML IV ONE (22:52)
[2023-10-15] MEDS: SODIUM CHLORIDE FLUSH 0.9% 10 ML SYRINGE IVP PRN (22:53)
[2023-10-15] MEDS ORDERED: SODIUM CHLORIDE 0.9% 500 ML IV ONE (23:02)
[2023-10-16] MEDS: SODIUM CHLORIDE FLUSH 0.9% 10 ML SYRINGE IVP SCH (01:16)
[2023-10-16] MEDS: SODIUM CHLORIDE 0.9% 1,000 ML IV SCH (01:17)
[2023-10-16] MEDS: FUROSEMIDE 20 MG/2 ML VIAL IVP PRN (01:48)
[2023-10-16 05:41] VITALS: O2SAT 97
[2023-10-16 07:57] VITALS: BP 149/79
[2023-10-16 08:19] LABS: BASOPHILS # (AUTO) 0.1 10^3/uL (0.0-0.1); BASOPHILS % (AUTO) 0.6 %; EOSINOPHILS # (AUTO) 0.1 10^3/uL (0.0-0.7); EOSINOPHILS % (AUTO) 0.9 %; HCT - HEMATOCRIT 32.2 % (37.0-47.0); HGB - HEMOGLOBIN 9.5 g/dL (12.0-16.0); LYMPHOCYTES # (AUTO) 1.9 10^3/uL (1.5-3.5); LYMPHOCYTES % (AUTO) 17.7 %; MEAN CORPUSCULAR HEMOGLOBIN 22.8 pg (27.0-31.0); MEAN CORPUSCULAR HGB CONC 29.5 g/dL (32.0-36.0); MEAN CORPUSCULAR VOLUME 77.4 fL (81.0-99.0); MEAN PLATELET VOLUME 9.7 fL (7.9-10.8); MONOCYTES # (AUTO) 0.9 10^3/uL (0.0-1.0); MONOCYTES % (AUTO) 8.1 %; NEUTROPHILS # (AUTO) 7.6 10^3/uL (1.5-6.6); NEUTROPHILS % (AUTO) 71.7 %; NRBC ABSOLUTE COUNT (AUTO) 0.02 x10^3/uL; NUCLEATED RED BLOOD CELLS AUTO 0.2 /100WBC; PLT - PLATELET COUNT 429 10^3/uL (130-450); RED BLOOD COUNT 4.16 10^6/uL (4.20-5.40); RED CELL DISTRIBUTION WIDTH 22.3 % (12.0-15.0); WHITE BLOOD COUNT 10.5 x10^3/uL (4.8-10.8)
[2023-10-16 08:24] LABS: RBC MORPHOLOGY (MULTIPLE) 4+ ANISOCYTOSIS (NORMAL); SLIDE REVIEW? Indicated
[2023-10-16 08:28] LABS: CALCIUM 8.7 mg/dL (8.5-10.3); CREATININE 0.9 mg/dL (0.6-1.3); POTASSIUM 3.4 mmol/L (3.5-4.5)
--- NOTE | 2023-10-16 09:18 | DISCHARGE SUMMARY ---
Discharge Summary Admit Date: 10/15/23 Discharge Date: 10/16/23 Discharging Provider: Altagracia Ballesteros Code Status: Attempt Resuscitation Condition at Discharge: Stable Discharge Disposition: Against Medical Advice - HPI History of Present Illness: 67-year-old female presents to the emergency department stating that she has had dark stools for several weeks. She states she is scheduled to meet with a surgeon for colonoscopy on . She states that she has not met with them yet. She had outpatient labs drawn today hemoglobin found to be 5.8 and sent here for evaluation. Her iron levels are also extremely low. No abdominal pain. No fevers. She states she does not drink. Does not use NSAIDs or aspirin. 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 Patient had outpatient labs drawn which showed a hemoglobin of 5.8. Upon presentation a CBC 5.5. Patient was admitted for anemia. She did however refused any further workup including a general surgery consultation, EGD, or colonoscopy. She reported that she had an outpatient surgery consultation for an EGD and colonoscopy on 10/17 and would like to wait for that. Patient received 3 total units of packed red blood cells which brought her hemoglobin to 9.5. She was made aware of the risks of leaving but chose to discharge without further consultation or monitoring of her hemoglobin. She will follow-up with her surgeon on - ALLERGIES Allergies/Adverse Reactions: Allergies Allergy/AdvReac Type Severity Reaction Status Date / Time aspirin Allergy Rash Verified 10/15/23 20:16 - MEDICATIONS Home Medications: Ambulatory Orders Medication Instructions Recorded Confirmed Sulfamethoxazole/Trimethoprim 1 each PO DAILY 10/15/23 10/15/23 [Bactrim 400-80 mg Tablet] - PHYSICAL EXAM AT DISCHARGE General Appearance: positive: No acute distress, Alert Respiratory: positive: No respiratory distress, Breath sounds nml Cardiovascular: positive: Regular rate & rhythm, No murmur, No gallop Abdomen: positive: Non-tender, No organomegaly, Nml bowel sounds - LABS Result Diagrams: 10/16/23 08:12 10/16/23 08:12 - SEPSIS Current Stage of Sepsis: Ruled out
== END 2023-10-16 09:00 | disposition left against medical advice (07) ==
LOC: ED 19:58 → MS2 20:55
PROVIDERS: ADMIT Internal Medicine; ATTEND Family Medicine
DX: D64.9 Anemia, unspecified (principal); K92.1 Melena; E87.6 Hypokalemia; Z79.82 Long term (current) use of aspirin; Z87.891 Personal history of nicotine dependence
CPT/HCPCS: 36415; 36430; 80048; 80053; 83690; 85025; 85610; 85730; 86850; 86900; 86901; 86920; 96361; 96374; 96375; 99284; 99285; G0378; P9016

== ENCOUNTER 2023-10-29 07:34 | Day surgery (SDC) | payer MEDICARE, MEDICAID ==
[2023-10-29] MEDS ORDERED: ceFAZolin 2 GM VIAL ONE (07:40)
[2023-10-29] MEDS: LACTATED RINGERS 1,000 ML IV ONE ×2 (07:55→10:18)
--- NOTE | 2023-10-29 08:39 | ANESTHESIA ---
Pre-Anesthesia VS, & Labs - Diagnosis R ureteral mass - Procedure Cystoscopy, R rigid and flxible ureteroscopy, R ureteral stent Vital Signs: Temp Pulse Resp BP Pulse Ox O2 Flow Rate 36.9 C 72 16 135/77 H 98 98 10/29/23 08:02 10/29/23 08:02 10/29/23 08:02 10/29/23 08:02 10/29/23 08:02 10/29/23 08:02 Height: 5 ft Weight (kg): 60.7 kg Body Mass Index: 26.1 BMI Classification: Overweight - NPO >8 hours - Is Patient ?: No - Lab Results Lab results reviewed: Yes Home Medications and Allergies Sulfamethoxazole/Trimethoprim [Bactrim 400-80 mg Tablet] 1 each PO DAILY 10/14 Allergies/Adverse Reactions: Allergies Allergy/AdvReac Type Severity Reaction Status Date / Time aspirin Allergy Rash Verified 10/15/23 20:16 Anes History & Medical History - Anesthetic History Anesthesia Complications: reports: No previous complications Family history of Anesthesia Complications: Denies Family history of Malignant Hyperthermia: Denies - Medical History Cardiovascular: reports: None Pulmonary: reports: None, Shortness of breath (with excessive activity) Gastrointestinal: reports: GERD, Other Urinary: reports: Frequency, Other Neuro: reports: None Musculoskeletal: reports: None, Osteoarthritis Endocrine/Autoimmune: reports: None Blood Disorders: reports: Anemia Smoking Status: Former smoker - Surgical History General: reports: Appendectomy Orthopedic: reports: Other Exam General: Alert, Oriented x3, Cooperative Dental: Dentures full Upper, Dentures full Lower Mouth Openin Fingerbreadth Neck Mobility: Normal Mallampati classification: II Thyromental Distance: 4-6 cm Respiratory: Lungs clear, Normal breath sounds, No respiratory distress Cardiovascular: Regular rate Neurological: Normal speech Mental/Cognitive Status: Alert/Oriented X3, Normal for patient Cognitive Status: Within normal limits Plan Anesthesia Type: General Consent for Procedure(s) Verified and Reviewed: Yes Code Status: Attempt Resuscitation ASA classification: 2-Mild systemic disease Is this case an emergency?: No
[2023-10-29] MEDS ORDERED: MORPHINE 2 MG/ML CARPUJECT IVP PRN (08:41)
[2023-10-29] MEDS ORDERED: ONDANSETRON 4 MG/2 ML VIAL IVP PRN ×2 (08:41→10:09)
[2023-10-29] MEDS ORDERED: fentaNYL 100 MCG/2 ML VIAL IVP PRN (08:41)
[2023-10-29] MEDS ORDERED: HYDROmorphone 0.5 MG/0.5 ML SYRINGE IVP PRN (08:41)
[2023-10-29] MEDS ORDERED: METOCLOPRAMIDE 10 MG/2 ML VIAL IVP PRN (08:41)
[2023-10-29] MEDS ORDERED: ATROPINE ABBOJECT 1 MG/10 ML SYRINGE IVP PRN (08:41)
[2023-10-29] MEDS ORDERED: ePHEDrine 50 MG/ML VIAL IVP PRN (08:41)
[2023-10-29] MEDS ORDERED: NALOXONE 0.4 MG/ML VIAL IVP PRN (08:41)
[2023-10-29] MEDS ORDERED: LIDOCAINE 2% URO-JET 5 ML SYRINGE UR ONE (08:52)
[2023-10-29] MEDS ORDERED: iohexoL-240 10 ML VIAL IVP ONE (08:52)
[2023-10-29] MEDS ORDERED: LACTATED RINGERS 1,000 ML IV SCH (09:00)
[2023-10-29] MEDS ORDERED: PROPOFOL 200 MG/20 ML VIAL IVP ONE (09:09)
[2023-10-29] MEDS ORDERED: LIDOCAINE-PF 2% 10 ML AMP SUBQ ONE (09:09)
[2023-10-29] MEDS ORDERED: MIDAZOLAM 2 MG/2 ML VIAL ONE (09:11)
[2023-10-29] MEDS ORDERED: fentaNYL 100 MCG/2 ML VIAL ONE (09:11)
[2023-10-29] MEDS ORDERED: ePHEDrine 50 MG/ML VIAL IVP ONE (09:29)
[2023-10-29] MEDS: iohexoL-240 10 ML VIAL IVP ONE (09:35)
[2023-10-29] MEDS: LIDOCAINE 2% URO-JET 5 ML SYRINGE UR ONE (09:36)
[2023-10-29] MEDS ORDERED: ONDANSETRON 4 MG/2 ML VIAL ONE (09:41)
[2023-10-29] MEDS ORDERED: DEXAMETHASONE 4 MG/ML VIAL ONE (09:41)
[2023-10-29] MEDS ORDERED: HYDROcod/ACETAM 5/325 MG TABLET PO PRN (10:09)
--- NOTE | 2023-10-29 10:14 | Discharge Plan ---
Discharge Plan Problem Reviewed?: Yes Disposition: Home, Self Care Condition: Good Prescriptions: Docusate Sodium 100Mg Capsule [Colace 100Mg Capsule] 100 mg PO DAILY #7 cap oxyCODONE [Roxicodone] 5 mg PO Q4H PRN #10 tablet PRN Reason: Pain Diet: Regular Activity Restrictions: No Restrictions Shower Restrictions: No Driving Restrictions: No Instruction Topics: Stents Ureteral Additional Instructions or Follow Up instructions: You have an appointment with Dr. Tinoco on October 31 at 3:30 PM. Please arrive 15 minutes early No Smoking: If you smoke, Please STOP! Call for help. Follow-up with: Josh Tinoco MD [Provider Admit Priv/Credential] -
--- NOTE | 2023-10-29 10:18 | OPERATIVE REPORT ---
Operative Report - General Procedure Date: 10/29/23 Planned Procedure: Cystoscopy, right ureteroscopy, ureteral biopsy, right ureteral stent, left retrograde pyelogram Pre-Op Diagnosis: right ureteral mass Procedure Performed: Cystoscopy, urethral dilation, right ureteroscopy, ureteral biopsy, right ureteral stent, bilateral retrograde pyelogram Post Op Diagnosis: right ureteral mass, urethral stricture - Procedure Note Primary Surgeon: Earnest Anesthesia Provider: NAHOMI Wheeler Anesthesia Technique: General LMA Pathology: right ureteral biopsy right ureteral debris Estimated Blood Loss (mL): 2 Findings: Distal urethral stricture about 16f dilated to 24f normal bladder mucosa left retrograde pyelogram benign right severely tortuous and severely hydronephrotic system Large obstructing distal mass, appears low grade or possibly benign debris in ureter sent separately Complications: none - Other Other Information/Narrative: After informed consent was obtained the patient was brought to the OR and laid in the supine position. The patient was anesthetized per anesthesia protocols and prepped and draped in usual sterile fashion in the dorsolithotomy position. A formal timeout was performed reconfirming the patient, procedure and laterality. We attempted to place a 22 Angolan cystoscope which she was noted to have a distal urethral stricture. Her urethra was then dilated up using sounds from 16 Angolan to 24 Angolan. The 22 Angolan cystoscope was then advanced into the bladder. The bladder mucosa was inspected and normal. Her ureteral orifices were narrow but orthotopic bilaterally. Her left ureteral orifice was cannulated with a sensor wire and a 5 Angolan ureteral catheter. A gentle retrograde pyelogram showed a normal course of her left ureter and normal renal system overall. We attempted to cannulate the right UO but we could not easily with the sensor wire. Using a semirigid ureteroscope we were then able to use the sensor wire to cannulate the UO and this wire was placed up into the kidney. The 5 Angolan open-ended ureteral catheter was placed over the wire into the kidney and a gentle retrograde pyelogram showed a severely hydronephrotic right renal system with severe tortuosity of her proximal and mid ureter. The contrast extended down to the level of the bony pelvis where there was an acute obstruction. The short semirigid ureteroscope was then advanced next to the wire into the distal ureter and immediately we could see a large papillary appearing tumor which extended from immediately proximal to the UVJ all the way up to roughly the iliac vessels. There was some debris that almost appear mucoid that drained from the ureter from this manipulation into the bladder. We collected this and sent it as a specimen called right ureteral debris. Using a 3 Angolan Piranha grasper we then biopsied multiple areas of this large ureteral mass and sent it for analysis in formalin on a Telfa. We did about 5 biopsies. We then placed a 6 Angolan 24 cm double-J ureteral stent with good curling noted in the kidney and good curling noted in the bladder. There was minimal bleeding. Her bladder was emptied and a Uro-Jet was placed. This concluded the procedure and the patient tolerated the procedure well. She will follow-up later this week for pathology discussion.
--- NOTE | 2023-10-29 13:05 | ANESTHESIA POST OP EVALUATION ---
Anesthesia Post Eval - Post Anesthesia Eval Vitals: Last Vital Signs Temp 36.5 C 10/29/23 10:34 Pulse 81 10/29/23 11:55 Resp 16 10/29/23 11:55 BP 128/74 10/29/23 11:55 Pulse Ox 97 10/29/23 11:55 O2 Flow Rate 98 10/29/23 08:02 CV Function Including HR & BP: Stable Pain Control: Satisfactory Nausea & Vomiting: Negative Mental Status: Baseline Respiratory Status: Airway Patent Hydration Status: Satisfactory Anesthesia Complications: None
[2023-10-29 13:37] VITALS: BP 125/78; O2SAT 100
--- NOTE | 2023-10-30 00:07 | XRAY Report ---
PROCEDURE: OR C-Arm Procedure INDICATIONS: CYSTOSCOPY, RIGHT URETERAL STENT, LEFT PYELOGRAM TECHNIQUE: Intraoperative fluoroscopic guidance was provided and low-resolution fluoroscopic spot griselda ms were obtained. COMPARISON: None. FINDINGS: Low-resolution intraoperative spot films show unremarkable left-sided retrograde urogram an d dilated right ureter and renal collecting system, and placement of right ureteral stent IMPRESSION: Fluoroscopic guidance. Reviewed by: Oral Beck MD on 10/29/2023 11:06 PM ELISABETH Approved by: Oral Beck MD on 10/29/2023 11:06 PM ELISABETH Station ID: [id number]
== END 2023-10-29 07:35 | disposition home or self-care (01) ==
LOC: SDS 07:34
PROVIDERS: ATTEND Urology
PROC: 0TB68ZX Excision of Right Ureter, Via Natural or Artificial Opening Endoscopic, Diagnostic (ICD-10-PCS; principal; 2023-10-29 09:30)
DX: N28.89 Other specified disorders of kidney and ureter (principal); N35.92 Unspecified urethral stricture, female; N13.1 Hydronephrosis with ureteral stricture, not elsewhere classified; F17.210 Nicotine dependence, cigarettes, uncomplicated
CPT/HCPCS: 52344; 52354; C1758; C2617; J7120; Q9966

== ENCOUNTER 2024-02-15 08:00 | Outpatient (CLI) | payer MEDICARE, MEDICAID | END 2024-02-15 23:59 | disposition home or self-care (01) | LOC: LAB.N 08:00 | PROVIDERS: ATTEND Physician Assistant Medical | DX: R10.9 Unspecified abdominal pain (principal) | CPT/HCPCS: 87086; 87181 ==

== ENCOUNTER 2024-02-15 17:15 | Emergency (ER) | payer MEDICARE, MEDICAID ==
[2024-02-15 17:48] LABS: BASOPHILS # (AUTO) 0.1 10^3/uL (0.0-0.1); BASOPHILS % (AUTO) 0.3 %; EOSINOPHILS % (AUTO) 0.1 %; HCT - HEMATOCRIT 28.6 % (37.0-47.0); HGB - HEMOGLOBIN 8.4 g/dL (12.0-16.0); LYMPHOCYTES # (AUTO) 1.1 10^3/uL (1.5-3.5); LYMPHOCYTES % (AUTO) 7.1 %; MEAN CORPUSCULAR HEMOGLOBIN 23.3 pg (27.0-31.0); MEAN CORPUSCULAR HGB CONC 29.4 g/dL (32.0-36.0); MEAN CORPUSCULAR VOLUME 79.4 fL (81.0-99.0); MONOCYTES # (AUTO) 1.3 10^3/uL (0.0-1.0); MONOCYTES % (AUTO) 7.9 %; NEUTROPHILS # (AUTO) 13.5 10^3/uL (1.5-6.6); NEUTROPHILS % (AUTO) 83.9 %; PLT - PLATELET COUNT 529 10^3/uL (130-450); RED CELL DISTRIBUTION WIDTH 16.9 % (12.0-15.0); WHITE BLOOD COUNT 16.1 x10^3/uL (4.8-10.8)
--- NOTE | 2024-02-15 18:00 | ED Physician Documentation ---
History of Present Illness - Stated complaint Stated Complaint: SIDE PX/ - Chief complaint Chief Complaint: Abd Pain - Additonal information Additional information: Patient is a 68-year-old female presenting to the emergency department with right flank pain. She notes she had procedure at the end of September this year after being seen in the emergency department and having a notable right renal mass. Patient had biopsy obtained at that time and she is unsure of the results. Patient was supposed to follow-up with the specialist in [place] but she never received a phone call or letter from them. Patient notes her pain in her right flank resolved until 3 weeks after the surgery. She notes since then it has progressively worsened. Last week she had 3 days of hematuria. She notes since then no symptoms of hematuria or dysuria. She has not followed up with urology or with Dr. Laureano who performed the surgery PD PAST MEDICAL HISTORY - Past Medical History Past Medical History: Yes Cardiovascular: None Respiratory: None, Shortness of breath Neuro: None Endocrine/Autoimmune: None GI: GERD, Other : Frequency, Other Psych: None Musculoskeletal: None, Osteoarthritis - Past Surgical History Past Surgical History: Yes General: Appendectomy Ortho: Other - Present Medications Home Medications: Ambulatory Orders Medication Instructions Recorded Confirmed Sulfamethoxazole/Trimethoprim 1 each PO DAILY 10/15/23 10/15/23 [Bactrim 400-80 mg Tablet] Docusate Sodium 100Mg Capsule 100 mg PO DAILY #7 cap 10/29/23 [Colace 100Mg Capsule] oxyCODONE [Roxicodone] 5 mg PO Q4H PRN #10 tablet 10/29/23 Cefdinir 300 mg PO BID #20 cap 02/15/24 HYDROcod/ACETAM 5/325 [[place] 5/325] 1 - 2 tab PO Q6H PRN #15 tablet 02/15/24 oxyBUTYnin chloride [Oxybutynin 5 mg PO DAILY #14 tab 02/15/24 Chloride] - Allergies Allergies/Adverse Reactions: Allergies Allergy/AdvReac Type Severity Reaction Status Date / Time aspirin Allergy Rash Verified 02/15/24 17:23 ibuprofen Allergy Hallucinati Verified 02/15/24 17:23 ons - Social History Does the pt smoke?: No Smoking Status: Never smoker Does the pt drink ETOH?: No Does the pt have substance abuse?: No - Immunizations Immunizations are current?: Yes - POLST Patient has POLST: No PD ED PE NORMAL - Vitals Vital signs reviewed: Yes - General General: Alert and oriented X 3 - HEENT HEENT: Atraumatic, PERRL - Neck Neck: Supple, no meningeal sign - Cardiac Cardiac: RRR, No murmur, No gallop, No rub - Respiratory Respiratory: No respiratory distress, Clear bilaterally - Abdomen Abdomen: Normal bowel sounds, Soft, Non distended, Other (Reproducible right lower quadrant tenderness and right CVA tenderness on examination.) - Female Female : Deferred - Rectal Rectal: Deferred - Back Back: Other (Right-sided CVA tenderness.) - Extremities Extremities: No deformity - Neuro Neuro: Alert and oriented X 3 Eye Opening: Spontaneous Motor: Obeys Commands Verbal: Oriented GCS Score: 15 Results - Vitals Vitals: Vital Signs - 24 hr 02/15/24 17:24 Temperature 36.8 C Heart Rate 100 Respiratory 16 Rate Blood Pressure 134/71 H O2 Saturation 97 Oxygen O2 Source Room air - Labs Labs: Laboratory Tests 02/15/24 02/15/24 02/15/24 17:41 17:41 18:00 WBC 16.1 H RBC 3.60 L Hgb 8.4 L Hct 28.6 L MCV 79.4 L MCH 23.3 L MCHC 29.4 L RDW 16.9 H Plt Count 529 H MPV 9.0 Neut # (Auto) 13.5 H Lymph # (Auto) 1.1 L [place] # (Auto) 1.3 H Eos # (Auto) 0.0 Baso # (Auto) 0.1 Absolute Nucleated RBC 0.00 Nucleated RBC % 0.0 Sodium 136 Potassium 3.7 Chloride 99 L Carbon Dioxide 29 Anion Gap 8.0 BUN 19 Creatinine 0.7 Estimated GFR (MDRD) 83 L Glucose 124 H Calcium 8.9 Total Bilirubin 0.5 AST 15 ALT 26 Alkaline Phosphatase 88 Total Protein 7.7 Albumin 3.6 Globulin 4.1 Albumin/Globulin Ratio 0.9 L Urine Color YELLOW Urine Clarity CLOUDY Urine pH 6.5 Ur Specific [place] 1.025 Urine Protein 100 H Urine Glucose (UA) NEGATIVE Urine Ketones NEGATIVE Urine Occult Blood MODERATE H Urine Nitrite POSITIVE H Urine Bilirubin NEGATIVE Urine Urobilinogen 1 (NORMAL) Ur Leukocyte Esterase MODERATE H Urine RBC 6-10 H Urine WBC >25 H Urine WBC Clumps PRESENT Ur Squamous Epith Cells FEW Squamous Urine Bacteria Many H Ur Microscopic Review INDICATED Urine Culture Comments INDICATED PD Medical Decision Making - ED course Complexity details: reviewed old records, reviewed results, re-evaluated patient ED course: Patient is a 68-year-old female presenting to the emergency department with right flank pain that has been going on for multiple months but progressively worsening. Patient had a renal mass that was discovered on her right kidney back in September she had biopsy performed by Dr. Tinoco and was to follow-up with [facility]. Patient had stent placed at the time but never followed up with physicians in [place] or with Dr. Tinoco. Patient notes she had 3 days of hematuria last week and continues to have right flank pain this week. She denies any fevers associated with her symptoms. Patient CT scan without contrast showed new right perinephric inflammation without significant change in hydronephrosis. Hydronephrosis appeared to be recurrent or residual no obstructing colliculi mild hepatic steatosis. Patient's CMP shows improving GFR here in emergency department previous labs from 2 months ago showed GFR of 63 today patient's around 83. No significant electrolyte abnormality. Mild leukocytosis here in the ED at 16. UA does show signs of leukocytosis with red blood cells white blood cells and positive nitrites in the urine. Patient is anemic to 8.9 but no significantly off from baseline. Discussed with urologist Dr. Tinoco who notes symptoms most likely secondary to infection. He recommends patient be given antibiotics pain control and stool softeners with addition of oxybutynin 5 mg for 14 days. He will see patient in his office on Sunday. He will evaluate possible exchanging stent versus removing in a few weeks. Patient reevaluated she feels significantly better after pain meds given and first dose of IV antibiotics given. Patient feels safe to go home. She will follow-up with Dr. Tinoco she was given the phone number and instructed he wants to see her early next week for further evaluation and treatment. 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 Patient received first dose of IV antibiotics here in the emergency department. She was instructed to return with any worsening pain fevers nausea vomiting unable to tolerate oral antibiotics changes in urine or difficulty urinating. Patient understands and is agreeable with this plan. Departure - Departure Disposition: Home, Self Care Clinical Impression: Pyelonephritis of right kidney, Right flank pain Condition: Good Instructions: Pyelonephritis Dc Prescriptions: Cefdinir 300 mg PO BID #20 cap HYDROcod/ACETAM 5/325 [[place] 5/325] 1 - 2 tab PO Q6H PRN #15 tablet PRN Reason: Pain oxyBUTYnin chloride [Oxybutynin Chloride] 5 mg PO DAILY #14 tab Comments: You were seen here in the emergency department for your right flank pain your workup here showed pyelonephritis. Your pain was under control started you on antibiotics Dr. Tinoco your urologist will want to see you early next week for follow-up please follow-up and return with any nausea vomiting unable to tolerate oral medications severe pain or any other new or worsening symptoms. Forms: PCP List
[2024-02-15 18:04] LABS: ALBUMIN 3.6 g/dL (3.2-5.5); ALBUMIN/GLOBULIN RATIO 0.9 (1.0-2.2); BILIRUBIN,TOTAL 0.5 mg/dL (0.2-1.0); CALCIUM 8.9 mg/dL (8.5-10.3); CREATININE 0.7 mg/dL (0.6-1.3); POTASSIUM 3.7 mmol/L (3.5-4.5); TOTAL PROTEIN 7.7 g/dL (6.4-8.9)
[2024-02-15 18:10] LABS: BILIRUBIN,URINE NEGATIVE (NEGATIVE); GLUCOSE, URINE (UA) NEGATIVE (NEGATIVE); KETONES,URINE (UA) NEGATIVE (NEGATIVE); LEUKOCYTE ESTERASE, URINE MODERATE (NEGATIVE); NITRITE,URINE POSITIVE (NEGATIVE); OCCULT BLOOD,URINE MODERATE (NEGATIVE); PH,URINE 6.5 PH (5.0-7.5); PROTEIN,URINE 100 mg/dL (NEGATIVE); UROBILINOGEN,URINE 1 (NORMAL) E.U./dL (NORMAL)
[2024-02-15 18:13] LABS: CLARITY,URINE CLOUDY (CLEAR)
[2024-02-15 18:24] LABS: BACTERIA,URINE Many /HPF (None Seen); SQUAMOUS EPITHELIAL CELL,UR FEW Squamous (<= Few); WBC CLUMPS,URINE PRESENT; WBC,URINE >25 /HPF (0-5)
--- NOTE | 2024-02-15 19:10 | CT Report ---
PROCEDURE: Abdomen/Pelvis WO INDICATIONS: flank pain, urinary symptoms TECHNIQUE: A CT scan of the abdomen and pelvis was performed without the use of intravenous contrast. Images we re recorded and evaluated at appropriate window settings. Reformats: coronal and sagittal. For radiat ion dose reduction, the following was used: automated exposure control, adjustment of mA and/or kV ac cording to patient size. COMPARISON: 08/29/2023 FINDINGS: Image quality: Diagnostic. Lower chest: Moderate to large hiatal hernia. Liver: Mild hepatic steatosis. No contour deforming mass. Gallbladder: No radiopaque stones or wall thickening. Biliary tree: No intrahepatic or extrahepatic dilation, accounting for age. Spleen: No splenomegaly. Pancreas: No pancreatic ductal dilation. Adrenals: No adrenal nodule. Kidneys and ureters: Right-sided nephroureteral stent in place. Severe right-sided hydronephrosis and minor perinephric inflammation. No intrarenal calcifications. The right distal ureteral mass is not well seen without IV contrast. The ureter is redundant and dilated and. The left kidney demonstrates normal contour. No nephrolithiasis, hydronephrosis, or hydroureter. Stomach, bowel and peritoneum: Distal stomach, bowel loops, and colon are normal. Moderate sigmoid co yusuf diverticulosis. No pathologic free fluid. Lymph nodes: No central or retroperitoneal adenopathy. Vessels: No infrarenal aortic aneurysm. Reproductive organs: Age-appropriate . Bladder: Decompressed urinary bladder. Stent in appropriate position. No visible stone. Pelvic lymph nodes: No adenopathy by size criteria. Bones: No aggressive osseous abnormality. Other: No significant ventral or inguinal hernia. IMPRESSION: New right perinephric inflammation without significant change in degree of hydronephrosis. Hydronephr osis may be recurrent or residual. If previously resolved, the inflammation could reflect stent dysfu nction. No obstructing calculi seen. Mild hepatic steatosis. Moderate to large hiatal hernia. Reviewed by: Sary Rosales MD on 02/15/2024 7:08 PM PDT Approved by: Sary Rosales MD on 02/15/2024 7:08 PM PDT Station ID: [id number]
[2024-02-15] MEDS ORDERED: cefTRIAXone 1 GM VIAL ONE (19:28)
[2024-02-15] MEDS: cefTRIAXone 1 GM in SODIUM CHLORIDE 0.9% MINIBAG 100 ML IV STA (19:32)
[2024-02-15] MEDS: MORPHINE 2 MG/ML CARPUJECT IVP STA (19:49)
[2024-02-15 20:34] VITALS: BP 136/69; O2SAT 96
== END 2024-02-15 20:28 | disposition home or self-care (01) ==
LOC: ED 17:15
DX: N12 Tubulo-interstitial nephritis, not specified as acute or chronic (principal)
CPT/HCPCS: 36415; 80053; 81001; 81003; 85025; 87077; 87086; 87181; 96365; 99284

== ENCOUNTER 2024-03-07 06:33 | Day surgery (SDC) | payer MEDICARE, MEDICAID ==
[~2024-03-07 06:33] MED LIST: CIPROFLOXACIN 400 MG/200 ML 0 MG/0 ML BAG IV ONE
[2024-03-07] MEDS ORDERED: CIPROFLOXACIN 400 MG/200 ML 400 MG/200 ML BAG IV ONE (06:36)
[2024-03-07] MEDS: LACTATED RINGERS 1,000 ML IV ONE ×2 (07:07→09:35)
[2024-03-07] MEDS ORDERED: fentaNYL 100 MCG/2 ML VIAL ONE (08:00)
[2024-03-07] MEDS ORDERED: PROPOFOL 200 MG/20 ML VIAL IVP ONE (08:00)
[2024-03-07] MEDS ORDERED: MIDAZOLAM 2 MG/2 ML VIAL ONE (08:00)
[2024-03-07] MEDS ORDERED: ONDANSETRON 4 MG/2 ML VIAL IVP PRN (08:47)
[2024-03-07] MEDS ORDERED: HYDROmorphone 0.5 MG/0.5 ML SYRINGE IVP PRN (08:47)
[2024-03-07] MEDS ORDERED: fentaNYL 100 MCG/2 ML VIAL IVP PRN (08:47)
[2024-03-07] MEDS ORDERED: NALOXONE 0.4 MG/ML VIAL IVP PRN (08:47)
[2024-03-07] MEDS ORDERED: ATROPINE ABBOJECT 1 MG/10 ML SYRINGE IVP PRN (08:47)
[2024-03-07] MEDS ORDERED: MORPHINE 2 MG/ML CARPUJECT IVP PRN (08:47)
--- NOTE | 2024-03-07 08:47 | ANESTHESIA ---
Pre-Anesthesia VS, & Labs - Diagnosis Right ureteral obstruction - Procedure cystoscopy, right ureteroscopy, stent exchange Vital Signs: Temp Pulse Resp BP Pulse Ox O2 Flow Rate 36.6 C 70 17 123/69 98 03/07/24 06:52 03/07/24 06:52 03/07/24 06:52 03/07/24 06:52 03/07/24 06:52 Height: 5 ft Weight (kg): 58.2 kg Body Mass Index: 25.0 BMI Classification: Overweight - NPO >8 hours - Is Patient ?: No Home Medications and Allergies Home Medications: Ambulatory Orders No Known Home Medications 02/26/24 No Known Home Medications 02/26/24 Allergies/Adverse Reactions: Allergies Allergy/AdvReac Type Severity Reaction Status Date / Time ammonia Allergy Unknown Verified 03/06/24 12:54 aspirin Allergy Rash Verified 03/06/24 12:54 ibuprofen Allergy Hallucinati Verified 03/06/24 12:54 ons Anes History & Medical History - Anesthetic History Anesthesia Complications: reports: No previous complications - Medical History Cardiovascular: reports: None Pulmonary: reports: None Gastrointestinal: reports: GERD, Other Urinary: reports: Frequency, Other Neuro: reports: None Musculoskeletal: reports: Osteoarthritis Endocrine/Autoimmune: reports: None Blood Disorders: reports: Anemia Skin: reports: None Smoking Status: Never smoker Psychosocial: reports: No issues indicated History of Cancer?: No - Surgical History General: reports: Appendectomy Orthopedic: reports: Other Exam General: Alert, Oriented x3, Cooperative, No acute distress Dental: Dentures full Upper, Dentures full Lower Mouth Openin Fingerbreadth Neck Mobility: Normal Mallampati classification: II Thyromental Distance: 4-6 cm Mental/Cognitive Status: Alert/Oriented X3, Normal for patient Plan Anesthesia Type: General Consent for Procedure(s) Verified and Reviewed: Yes Code Status: Attempt Resuscitation ASA classification: 2-Mild systemic disease Is this case an emergency?: No
[2024-03-07] MEDS ORDERED: iohexoL-240 10 ML VIAL IVP ONE (08:48)
[2024-03-07] MEDS ORDERED: LIDOCAINE 2% URO-JET 5 ML SYRINGE UR ONE (08:48)
[2024-03-07] MEDS ORDERED: LACTATED RINGERS 1,000 ML IV SCH (09:00)
[2024-03-07] MEDS ORDERED: ONDANSETRON 4 MG/2 ML VIAL ONE (09:16)
[2024-03-07] MEDS ORDERED: ePHEDrine 50 MG/ML VIAL IVP ONE (09:16)
[2024-03-07] MEDS ORDERED: DEXAMETHASONE 4 MG/ML VIAL ONE (09:16)
[2024-03-07] MEDS ORDERED: SODIUM CHLORIDE 0.9% 10 ML VIAL IVP ONE (09:17)
[2024-03-07] MEDS ORDERED: KETOROLAC 30 MG/ML VIAL ONE (09:23)
[2024-03-07] MEDS: LIDOCAINE 2% URO-JET 5 ML SYRINGE UR ONE (09:25)
--- NOTE | 2024-03-07 09:42 | Discharge Plan ---
Discharge Plan Problem Reviewed?: Yes Disposition: Home, Self Care Condition: Good Activity Restrictions: No Restrictions Shower Restrictions: No Driving Restrictions: No Instruction Topics: Stents Ureteral Additional Instructions or Follow Up instructions: You have no specific follow-up with Dr. Tinoco but you should hear from urology office in [place] in the next month or so. If you have not heard anything by mid April please contact our office to coordinate care. Your ureteral stent needs to be exchanged or removed within 3 months. No Smoking: If you smoke, Please STOP! Call for help.
--- NOTE | 2024-03-07 09:44 | OPERATIVE REPORT ---
Operative Report - General Procedure Date: 03/07/24 Planned Procedure: Cystoscopy right ureteral stent exchange Pre-Op Diagnosis: right ureteral obstruction Procedure Performed: Cystoscopy right ureteral stent exchange Post Op Diagnosis: right ureteral obstruction - Procedure Note Primary Surgeon: Earnest Anesthesia Provider: NAHOMI Mir Anesthesia Technique: General LMA Pathology: none - Other Other Information/Narrative: After informed sent was obtained the patient brought to the OR and laid in the supine position. The patient was anesthetized per anesthesia protocols and prepped draped in usual sterile fashion in the dorsolithotomy position. A forma l timeout was performed reconfirming the patient, procedure and laterality. 22 Macanese scope was advanced into the urinary bladder. She had some mild urethral stenosis. Her bladder inspected and full there were no masses, lesions or other concerns. She has stent emanating from right ureteral orifice which was mildly encrusted. We grasped the stent and brought to the meatus. A sensor wire was placed through this up into the kidney. A new 6 Macanese 24cm stent was placed over the wire with good curling of the kidney and good curling noted in the bladder. There was a E flux of some mild debris from the stent. The bladder was emptied and Uro-Jet was placed. This include the procedure the patient tolerated procedure well. She will follow-up with urology in [place] for further surgical management of her ureteral obstruction. I have asked her to contact me if she does not hear from them soon. She is aware she needs the stent to be exchanged or removed in 3 months
[2024-03-07 10:57] VITALS: O2SAT 98
--- NOTE | 2024-03-07 10:59 | ANESTHESIA POST OP EVALUATION ---
Anesthesia Post Eval - Post Anesthesia Eval Vitals: Last Vital Signs Temp 36.4 C L 03/07/24 10:30 Pulse 80 03/07/24 10:30 Resp 14 03/07/24 10:30 BP 124/64 03/07/24 10:30 Pulse Ox 98 03/07/24 10:30 O2 Flow Rate CV Function Including HR & BP: Stable Pain Control: Satisfactory Nausea & Vomiting: Negative Mental Status: Baseline Respiratory Status: Airway Patent Hydration Status: Satisfactory Anesthesia Complications: None
[2024-03-07 11:43] VITALS: BP 124/64
--- NOTE | 2024-03-07 15:49 | XRAY Report ---
PROCEDURE: OR C-Arm Procedure INDICATIONS: Ureteral Stent FLUORO TIME: 000.1, 15.89 uGym2 TECHNIQUE: Intraoperative fluoroscopic image is provided for evaluation. COMPARISON: None. FINDINGS: Labeled right side demonstrates a ureterovesicular stent. IMPRESSION: Labeled right ureterovesicular stent. Reviewed by: Monica Galeano MD on 03/07/2024 3:47 PM PDT Approved by: Monica Galeano MD on 03/07/2024 3:47 PM PDT Station ID: [id number]
== END 2024-03-07 06:34 | disposition home or self-care (01) ==
LOC: SDS 06:33
PROVIDERS: ATTEND Urology
DX: N13.2 Hydronephrosis with renal and ureteral calculous obstruction (principal); N35.92 Unspecified urethral stricture, female; Z87.440 Personal history of urinary (tract) infections
CPT/HCPCS: 52332; C1758; C2617; J7120; Q9966

== ENCOUNTER 2024-03-16 06:11 | Emergency (ER) | payer MEDICARE, MEDICAID ==
--- NOTE | 2024-03-16 06:31 | ED Physician Documentation ---
History of Present Illness - Stated complaint Stated Complaint: DIZZY/BACK PX - Chief complaint Chief Complaint: Neuro - History obtained from History obtained from: Patient - Additonal information Additional information: 68-year-old woman with Past medical history of right kidney mass and ureteral obstruction, recent surgery 03/07 to have stent placed by our urologists here at [facility] p/w lightheadedness, weakness and VERONICA over the past 3 days, gradual onset, with similar sensation to past experiences preceding her need for blood transfusion. denies FND, CP, fever. PD PAST MEDICAL HISTORY - Past Medical History Past Medical History: Yes Cardiovascular: None Respiratory: None Neuro: None Endocrine/Autoimmune: None GI: GERD, Other : Frequency, Other HEENT: None Psych: None Musculoskeletal: Osteoarthritis Derm: None - Past Surgical History Past Surgical History: Yes General: Appendectomy Ortho: Other - Present Medications Home Medications: Ambulatory Orders Medication Instructions Recorded Confirmed No Known Home Medications 02/26/24 03/06/24 - Allergies Allergies/Adverse Reactions: Allergies Allergy/AdvReac Type Severity Reaction Status Date / Time ammonia Allergy Unknown Verified 03/16/24 06:22 aspirin Allergy Rash Verified 03/16/24 06:22 ibuprofen Allergy Hallucinati Verified 03/16/24 06:22 ons - Social History Does the pt smoke?: No Smoking Status: Never smoker Does the pt drink ETOH?: No Does the pt have substance abuse?: No - Immunizations Immunizations are current?: Yes - POLST Patient has POLST: No PD ED PE NORMAL - Vitals Vital signs reviewed: Yes - General General: Alert and oriented X 3, No acute distress, Well developed/nourished - HEENT HEENT: Atraumatic, PERRL, EOMI - Neck Neck: Supple, no meningeal sign - Cardiac Cardiac: RRR - Respiratory Respiratory: No respiratory distress, Clear bilaterally - Abdomen Abdomen: Non tender, Non distended - Derm Derm: Normal color, Warm and dry - Neuro Neuro: Alert and oriented X 3, 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 patient will be endorsed to incoming daytime ED MD at 7am shift change. I suspect she will be anemic and require admission for blood transfusion. Departure - Departure Clinical Impression: Dizziness, Anemia, Dyspnea on exertion Condition: Fair Forms: PCP List
[2024-03-16 06:47] LABS: BASOPHILS # (AUTO) 0.1 10^3/uL (0.0-0.1); BASOPHILS % (AUTO) 0.6 %; EOSINOPHILS # (AUTO) 0.4 10^3/uL (0.0-0.7); EOSINOPHILS % (AUTO) 3.2 %; HCT - HEMATOCRIT 23.1 % (37.0-47.0); LYMPHOCYTES # (AUTO) 1.9 10^3/uL (1.5-3.5); LYMPHOCYTES % (AUTO) 17.6 %; MEAN CORPUSCULAR HEMOGLOBIN 20.5 pg (27.0-31.0); MEAN CORPUSCULAR HGB CONC 27.3 g/dL (32.0-36.0); MEAN PLATELET VOLUME 9.5 fL (7.9-10.8); MONOCYTES % (AUTO) 9.1 %; NEUTROPHILS # (AUTO) 7.3 10^3/uL (1.5-6.6); NEUTROPHILS % (AUTO) 67.8 %; NRBC ABSOLUTE COUNT (AUTO) 0.04 x10^3/uL; NUCLEATED RED BLOOD CELLS AUTO 0.4 /100WBC; PLT - PLATELET COUNT 503 10^3/uL (130-450); RED BLOOD COUNT 3.08 10^6/uL (4.20-5.40); RED CELL DISTRIBUTION WIDTH 18.5 % (12.0-15.0); WHITE BLOOD COUNT 10.8 x10^3/uL (4.8-10.8)
[2024-03-16 06:51] LABS: SLIDE REVIEW? Indicated
[2024-03-16 06:52] LABS: HGB - HEMOGLOBIN 6.3 g/dL (12.0-16.0)
[2024-03-16 06:54] LABS: PLATELET ESTIMATE, MANUAL INCREASED (>450,000) (NORMAL)
[2024-03-16 07:03] LABS: ALBUMIN 3.4 g/dL (3.2-5.5); ALBUMIN/GLOBULIN RATIO 1.1 (1.0-2.2); BILIRUBIN,TOTAL 0.4 mg/dL (0.2-1.0); CALCIUM 8.6 mg/dL (8.5-10.3); CREATININE 0.8 mg/dL (0.6-1.3); POTASSIUM 3.5 mmol/L (3.5-4.5); TOTAL PROTEIN 6.6 g/dL (6.4-8.9)
[2024-03-16 07:04] LABS: PLATELET MORPHOLOGY NORMAL APPEARANCE (NORMAL); RBC MORPHOLOGY (MULTIPLE) 2+ HYPOCHROMASIA (NORMAL); WBC MORPHOLOGY (MULTIPLE) NORMAL APPEARANCE (NORMAL)
--- NOTE | 2024-03-16 11:30 | ED Physician Documentation ---
ED Addendum - Addendum Addendum: 03/16/24 11:29 The patient received a unit of blood. She did not have any reactions or problems. She is comfortable at this time. No signs of fluid overload or dyspnea. We repeated a H&H for new established baseline after the transfusion. We will discharge at this time. Diagnoses 1. General Weakness 2. Dyspnea 3. Anemia Disposition: The patient discharged home in stable condition.
[2024-03-16 12:09] LABS: HCT - HEMATOCRIT 25.9 % (37.0-47.0); HGB - HEMOGLOBIN 7.3 g/dL (12.0-16.0)
[2024-03-16 12:51] VITALS: BP 107/66; O2SAT 97
== END 2024-03-16 12:52 | disposition home or self-care (01) ==
LOC: ED 06:11
DX: D64.9 Anemia, unspecified (principal); R42 Dizziness and giddiness; R06.09 Other forms of dyspnea
CPT/HCPCS: 36415; 36430; 80053; 83690; 85014; 85018; 85025; 86850; 86900; 86901; 86920; 99283; 99285; P9016

== ENCOUNTER 2024-06-24 09:01 | Observation (INO) ==
--- NOTE | 2024-06-24 10:13 | ED Physician Documentation ---
PD HPI SYNCOPE Stated complaint Stated Complaint: DIZZINESS Chief complaint Chief Complaint: Neuro History obtained from History obtained from: Patient History of Present Illness Timing - onset: How many days ago (has had general weakness, VERONICA, and has been anemia with recently worse. Seen few days ago and given unit of RBCs. Pt did not want further workup. ) Preceding symptoms: Light headed; No Headache or Chest pain Associated symptoms: None (states dark stools lately.) Contributing factors: Just stood up Review of Systems Constitutional Reports: Fatigue and Weakness; Denies: Fever Endocrine Reports: Fatigue Meds/Allgy Home Medications Ambulatory Orders Medication Instructions Recorded Confirmed ferrous sulfate 325 mg (65 mg 325 mg PO BID #180 tabs 06/20/24 06/24/24 iron) tablet (FeroSul) pantoprazole 40 mg tablet,delayed 40 mg PO QAM #90 tabs 06/20/24 06/24/24 release Allergies Allergies Allergy/AdvReac Type Severity Reaction Status Date / Time bee venom protein (honey bee) Allergy Severe Anaphylaxis Verified 06/24/24 12:56 ammonia Allergy Unknown Verified 06/24/24 09:19 aspirin Allergy Rash Verified 06/24/24 09:19 ibuprofen Allergy Hallucinati Verified 06/24/24 09:19 ons [facility] Medical History Medical History (Updated 06/24/24 @ 12:11 by Lexi Aguila DO) Chronic arm pain Vomiting Abdominal pain of unknown etiology Hypokalemia Ureteral mass Pyelonephritis of right kidney Right flank pain Dizziness Dyspnea on exertion Other mechanical complication of indwelling ureteral stent, initial encounter Acute UTI Anemia Surgical History Surgical History (Updated 06/20/24 @ 13:51 by DEMETRA Lal) History of ankle surgery right, ORIF with hardware Hx of appendectomy Social History Social History Smoking Status: Current some day smoker If you are a former smoker, when did you quit? (Date/Year): 07/02/2021 Number of Years Smoked: 40 How many cigarettes a day do you smoke? (20 cigarettes=1 Pk): 20 Second hand tobacco smoke exposure: No Do you dip or chew tobacco?: No Do you vape?: No Patient requests smoking cessation consult: No Initiate information on smoking cessation: No Living arrangement: At home Marital Status: Single Living Condition: With friend(s) Relationship: Level: Independent Do you feel safe in your home environment?: Yes Suffered physical, verbal, emotional, or financial abuse?: No History of Abuse: No Frequency: Occasional Substance Use: denies use POLST Patient has POLST: No Exam Constitutional normal general appearance and average body habitus Respiratory breath sounds equal bilaterally and normal respiratory effort Cardiovascular normal heart rate noted, regular rhythm noted and no edema Gastrointestinal abdomen normal to inspection, abdomen soft to palpation and nontender to palpation Genitourinary no CVA tenderness Neurology no focal motor deficit noted, no sensory deficits noted and speech normal Psychiatry mental status grossly normal, oriented x3 and thought process normal Skin skin color abnormal (pale) Results Vitals Vitals: Vital Signs - 24 hr 06/24/24 09:12 06/24/24 11:18 Temperature 36.7 C Temperature Source Temporal Artery Scan Pulse Rate 90 78 Respiratory Rate 16 18 Blood Pressure 112/68 112/68 O2 Saturation 99 99 O2 Source Room air Room air Pain Intensity 0 3 Oxygen O2 Source Room air Labs Labs: Microbiology 06/24/24 10:57 Occult Blood - Final Stool Laboratory Tests 06/24/24 06/24/24 06/24/24 10:27 10:27 10:27 WBC 11.1 H RBC 2.91 L Hgb 6.1 L* Hct 23.7 L MCV 81.4 MCH 21.0 L MCHC 25.7 L RDW 27.5 H Plt Count 339 MPV 10.5 Neut # (Auto) 8.3 H Lymph # (Auto) 1.1 L [place] # (Auto) 0.8 Eos # (Auto) 0.4 Baso # (Auto) 0.1 Absolute Nucleated RBC 0.00 Nucleated RBC % 0.0 Manual Slide Review Indicated WBC Morphology NORMAL APPEARANCE Platelet Estimate NORMAL (130-450,000) Platelet Morphology NORMAL APPEARANCE RBC Morph Micro Appear 3+ ANISOCYTOSIS 3+ HYPOCHROMASIA 2+ POLYCHROMASIA Sodium Potassium Chloride Carbon Dioxide Anion Gap BUN Creatinine Estimated GFR (MDRD) Glucose Calcium Magnesium Iron TIBC % Saturation Transferrin Total Bilirubin AST ALT Alkaline Phosphatase Total Protein Albumin Globulin Albumin/Globulin Ratio Lipase Blood Type Antibody Screen Crossmatch IS Only 06/24/24 06/24/24 06/24/24 10:27 10:27 11:06 WBC RBC Hgb Hct MCV MCH MCHC RDW Plt Count MPV Neut # (Auto) Lymph # (Auto) [place] # (Auto) Eos # (Auto) Baso # (Auto) Absolute Nucleated RBC Nucleated RBC % Manual Slide Review WBC Morphology Platelet Estimate Platelet Morphology RBC Morph Micro Appear 1+ TEARDROP CELLS 1+ SCHISTOCYTES Sodium 138 Potassium 4.5 Chloride 106 Carbon Dioxide 28 Anion Gap 4.0 L BUN 24 H Creatinine 0.9 Estimated GFR (MDRD) 62 L Glucose 128 H Calcium 8.4 L Magnesium 1.7 Iron 14 L TIBC 463 H % Saturation 3 L Transferrin 331 Total Bilirubin 0.3 AST 15 ALT 15 Alkaline Phosphatase 96 Total Protein 6.9 Albumin 3.2 Globulin 3.7 Albumin/Globulin Ratio 0.9 L Lipase 43 Blood Type A POSITIVE Antibody Screen NEGATIVE Crossmatch IS Only See Detail PD Medical Decision Making ED course Complexity details: reviewed old records, considered differential, d/w patient (has lightheaded and weakness with near syncope upon standing this morning. Seen recent with low H/H and given blood. Presume some blood loss as blood count today lower than just few days ago. Rectal exam showing melena. Need to further eval. Serial H/H, presume upper EGD. ) and d/w cardiology consultant (hospitalist) Discharge Plan Discharge Patient Disposition: 66 [facility] DC/Xfer Condition: Stable Clinical Impression: Anemia, Stool guaiac positive, Upper GI bleeding, Iron (Fe) deficiency anemia Interventions: ED Admission Assessment Last Done: 06/24/24 12:37
[2024-06-24 10:34] LABS: BASOPHILS # (AUTO) 0.1 10^3/uL (0.0-0.1); BASOPHILS % (AUTO) 0.9 %; EOSINOPHILS # (AUTO) 0.4 10^3/uL (0.0-0.7); EOSINOPHILS % (AUTO) 3.2 %; HCT - HEMATOCRIT 23.7 % (37.0-47.0); LYMPHOCYTES # (AUTO) 1.1 10^3/uL (1.5-3.5); LYMPHOCYTES % (AUTO) 9.8 %; MEAN CORPUSCULAR HGB CONC 25.7 g/dL (32.0-36.0); MEAN CORPUSCULAR VOLUME 81.4 fL (81.0-99.0); MEAN PLATELET VOLUME 10.5 fL (7.9-10.8); MONOCYTES # (AUTO) 0.8 10^3/uL (0.0-1.0); MONOCYTES % (AUTO) 7.2 %; NEUTROPHILS # (AUTO) 8.3 10^3/uL (1.5-6.6); NEUTROPHILS % (AUTO) 74.9 %; PLT - PLATELET COUNT 339 10^3/uL (130-450); RED BLOOD COUNT 2.91 10^6/uL (4.20-5.40); RED CELL DISTRIBUTION WIDTH 27.5 % (12.0-15.0); WHITE BLOOD COUNT 11.1 x10^3/uL (4.8-10.8)
[2024-06-24 10:40] LABS: SLIDE REVIEW? Indicated
[2024-06-24 10:41] LABS: HGB - HEMOGLOBIN 6.1 g/dL (12.0-16.0)
[2024-06-24 10:51] LABS: ALBUMIN 3.2 g/dL (3.2-5.5); ALBUMIN/GLOBULIN RATIO 0.9 (1.0-2.2); BILIRUBIN,TOTAL 0.3 mg/dL (0.2-1.0); CALCIUM 8.4 mg/dL (8.5-10.3); CREATININE 0.9 mg/dL (0.6-1.3); MAGNESIUM 1.7 mg/dL (1.7-2.3); POTASSIUM 4.5 mmol/L (3.5-4.5); TOTAL PROTEIN 6.9 g/dL (6.4-8.9)
[2024-06-24] MEDS: PANTOPRAZOLE 40 MG VIAL IVP STA (11:23)
[2024-06-24 11:32] LABS: WBC MORPHOLOGY (MULTIPLE) NORMAL APPEARANCE (NORMAL)
[2024-06-24 11:33] LABS: PLATELET ESTIMATE, MANUAL NORMAL (130-450,000) (NORMAL); PLATELET MORPHOLOGY NORMAL APPEARANCE (NORMAL)
[2024-06-24 12:08] LABS: % IRON SATURATION 3 % (20-50); IRON 14 ug/dL (50-212); TOTAL IRON BINDING CAPACITY 463 ug/dL (250-450); TRANSFERRIN 331 mg/dL (203-362)
--- NOTE | 2024-06-24 12:12 | HISTORY & PHYSICAL EXAMINATION ---
History of Present Illness Admitted From Admitted From:: ED History Obtained From Records Reviewed: yes History obtained from: Patient, chart review History of Present Illness HPI Comment/Other: This a 68-year-old female past medical history significant for Gerd on daily protonix, right renal mass status post ureteral stent on 03/07/2024, Chronic iron deficiency anemia presents with melena and generalized weakness. She presented for the same last month, and was discharged after 1 unit of PRBCs. She was unable to get the EGD/colonoscopy she needed due to scheduling conflicts. She denies NSAID use, Alcohol use. Patient denies nausea, vomiting. Patient denies bloody stool samples. ED ED labs indicated hemoglobin of 6.6. All other labs are within normal limits. TIBC panel on 06/18/2024 indicated low iron elevated TIBC and high transferrin. No imaging was done. ED physician reports Positive fecal occult.Patient is full code 1 unit PRBCs was ordered by ER provider, and hospitalist was contacted for admission Meds/Allgy Home Medications Ambulatory Orders Medication Instructions Recorded Confirmed ferrous sulfate 325 mg (65 mg 325 mg PO BID #180 tabs 06/20/24 06/24/24 iron) tablet (FeroSul) pantoprazole 40 mg tablet,delayed 40 mg PO QAM #90 tabs 06/20/24 06/24/24 release Allergies Allergies Allergy/AdvReac Type Severity Reaction Status Date / Time ammonia Allergy Unknown Verified 06/24/24 09:19 aspirin Allergy Rash Verified 06/24/24 09:19 ibuprofen Allergy Hallucinati Verified 06/24/24 09:19 ons bees Allergy Unknown Uncoded 06/24/24 09:19 [facility] Medical History Medical History (Updated 06/24/24 @ 12:11 by Lexi Aguila DO) Chronic arm pain Vomiting Abdominal pain of unknown etiology Hypokalemia Ureteral mass Pyelonephritis of right kidney Right flank pain Dizziness Dyspnea on exertion Other mechanical complication of indwelling ureteral stent, initial encounter Acute UTI Anemia Surgical History Surgical History (Updated 06/20/24 @ 13:51 by DEMETRA Lal) History of ankle surgery right, ORIF with hardware Hx of appendectomy Social History Social History Smoking Status: Former smoker If you are a former smoker, when did you quit? (Date/Year): 07/02/2021 Number of Years Smoked: 20 How many cigarettes a day do you smoke? (20 cigarettes=1 Pk): 20 Second hand tobacco smoke exposure: Yes Do you dip or chew tobacco?: No Do you vape?: No Patient requests smoking cessation consult: No Initiate information on smoking cessation: No Living arrangement: At home Marital Status: Single Living Condition: With friend(s) Relationship: Level: Independent Do you feel safe in your home environment?: Yes Suffered physical, verbal, emotional, or financial abuse?: No History of Abuse: No Frequency: Occasional Substance Use: denies use POLST Patient has POLST: No Review of Systems Status of ROS: 10 or more systems reviewed and unremarkable except as noted in history and below Exam Constitutional normal general appearance HENMT normocephalic and head/scalp atraumatic Eyes PERRL and EOMs intact bilaterally Neck/C-Spine visual inspection normal and trachea midline Lymph no lymphadenopathy noted Chest inspection of chest normal and palpation of chest normal Respiratory breath sounds equal bilaterally and normal respiratory effort Cardiovascular normal heart rate noted and regular rhythm noted Gastrointestinal abdomen normal to inspection and abdomen soft to palpation Genitourinary no CVA tenderness and bladder normal to palpation Extremities normal to inspection and normal to palpation Neurology manager background II-XII intact and no movement abnormality noted Skin skin color normal and no rash Conclusion/Plan Problem List (1) Stool guaiac positive: Plan: Patient has a history of blood positive bowel movement in the past. CT done on 04/05/2024 did not indicate any acute GI bleeds, but was positive for multiple diverticula of the colon. Patient will need to follow-up with GI as an outpatient. (2) Iron (Fe) deficiency anemia: Plan: Patient has chronic iron deficiency anemia documented in previous chart notes. Patient takes daily iron supplements. Labs done on 02/11/1824 indicated low iron, high TIBC. Transfuse IV iron Transfuse 1 units RBCs, Monitor H&H (3) GERD (gastroesophageal reflux disease): Plan: Continue Protonix (4) Hypocalcemia: Plan: Replace electrolytes Lab Results Lab results reviewed: Yes 06/24/24 10:27 06/24/24 10:27
[2024-06-24] MEDS ORDERED: ACETAMINOPHEN 325 MG TABLET PO PRN (12:54)
[2024-06-24] MEDS ORDERED: ONDANSETRON ODT 4 MG TABLET TL PRN (12:54)
[2024-06-24] MEDS ORDERED: SODIUM CHLORIDE FLUSH 0.9% 10 ML SYRINGE IVP PRN (12:54)
[2024-06-24] MEDS ORDERED: FERRIC GLUCONATE 125 MG in SODIUM CHLORIDE 0.9% 100ML 100 ML IV SCH (13:00)
--- NOTE | 2024-06-24 14:15 | PHARMACY PROGRESS NOTE ---
Best Possible Medication History Admit Date and Time: 06/24/24 298104 Home Medications Medication Instructions Recorded Confirmed Type ferrous sulfate 325 mg (65 mg 325 mg PO BID #180 tabs 06/20/24 06/24/24 Rx iron) tablet (FeroSul) pantoprazole 40 mg tablet,delayed 40 mg PO QAM #90 tabs 06/20/24 06/24/24 Rx release Processed by: Pharmacy Medications reviewed in ED?: Yes Medication History completed: Yes Patient Interview: Pt interview ONLY source [facility] Statement: As the person ultimately responsible for medication therapy, providers are able to order a medication from an existing home medication list in [facility] via the "Reconcile Routine" prior to Confirmation of that medication by developer support engineer. Such practice is discouraged except when the physician, in their clinical judgment, deems that a medical need exists for a medication without regard to previous use.
[2024-06-24] MEDS: FERRIC GLUCONATE 125 MG in SODIUM CHLORIDE 0.9% 100ML 100 ML IV SCH (16:01)
[2024-06-24] MEDS: SODIUM CHLORIDE FLUSH 0.9% 10 ML SYRINGE IVP SCH (16:01)
[2024-06-24 17:02] VITALS: BP 119/61; TEMP 98.1; O2SAT 97
--- NOTE | 2024-06-24 17:09 | Discharge Summary ---
Discharge Summary Admit Date: 06/24/24 Discharge Date: 06/24/24 Discharging Provider: Dr. Aguila Code Status: Attempt Resuscitation DIAGNOSES Admission Diagnoses: Chronic iron deficient anemia Lower GI bleed Hypocalcemia Discharge Diagnoses with Status of Each Condition: Patient was transfused with 1 unit of RBCs, H&H increased to 7.6 patient is and has been asymptomatic Patient Was transfused with 125 mg ferric sulfate. Patient was transfused with calcium gluconate HPI History of Present Illness: This a 68-year-old female past medical history significant for Gerd on daily protonix, right renal mass status post ureteral stent on 03/07/2024, Chronic iron deficiency anemia presents with melena and generalized weakness. She presented for the same last month, and was discharged after 1 unit of PRBCs. She was unable to get the EGD/colonoscopy she needed due to scheduling conflicts. She denies NSAID use, Alcohol use. Patient denies nausea, vomiting. Patient denies bloody stool samples. ED ED labs indicated hemoglobin of 6.6. All other labs are within normal limits. TIBC panel on 06/18/2024 indicated low iron elevated TIBC and high transferrin. No imaging was done. ED physician reports Positive fecal occult.Patient is full code 1 unit PRBCs was ordered by ER provider, and hospitalist was contacted for admission HOSPITAL COURSE Hospital Course: Patient was transfused with 1 unit of RBCs. Repeat H&H indicated 7.6 Patient was transfused with IV ferrous sulfate for low iron. Patient's was transfused with calcium gluconate for hypocalcemia. Patient remained stable during transfusion. Patient is discharged home in stable condition and was advised to follow-up with the primary care physician on Sunday For CBC and iron lab work. Furthermore patient was advised to follow-up with GI doctor and manager intelligence. ALLERGIES Allergies Allergy/AdvReac Type Severity Reaction Status Date / Time bee venom protein (honey bee) Allergy Severe Anaphylaxis Verified 06/24/24 12:56 ammonia Allergy Unknown Verified 06/24/24 09:19 aspirin Allergy Rash Verified 06/24/24 09:19 ibuprofen Allergy Hallucinati Verified 06/24/24 09:19 ons MEDICATIONS Ambulatory Orders Medication Instructions Recorded Confirmed ferrous sulfate 325 mg (65 mg 325 mg PO BID #180 tabs 06/20/24 06/24/24 iron) tablet (FeroSul) pantoprazole 40 mg tablet,delayed 40 mg PO QAM #90 tabs 06/20/24 06/24/24 release PHYSICAL EXAM AT DISCHARGE General Appearance: positive No acute distress Eyes Bilateral: positive Normal inspection and PERRL ENT: positive ENT inspection nml and Pharynx nml Neck: positive Nml inspection and Trachea midline Respiratory: positive Chest non-tender and No respiratory distress Cardiovascular: positive Regular rate & rhythm and No murmur Abdomen: positive Non-tender and No organomegaly Back: positive Nml inspection Skin: positive Color nml and No rash Extremities: positive Non-tender and Full ROM Neurologic/Psychiatric: positive Oriented x3 and CN's nml (2-12) LABS 06/24/24 17:09 06/24/24 10:27 FOLLOW UP Follow Up: Primary care doctor on Sunday to obtain referral for manager intelligence, GI doctor. TIME SPENT Time Spent in Discharge (Minutes): 30 Discharge Plan Discharge Patient Disposition: Home, Self Care Condition: Stable Medically Cleared Date:: 06/24/24 Prescriptions: Continued pantoprazole 40 mg tablet,delayed release (DR/EC) 40 mg PO QAM Qty: 90 2RF ferrous sulfate [FeroSul] 325 mg (65 mg iron) tablet 325 mg PO BID Qty: 180 3RF Diet: Regular Health Concerns: you have recurrent iron deficient anemia, And teardrop cells Your blood smear which may indicate possible Disorder of the bone marrow or spleen. This needs to be follow-up by a Supervisor Webbing You also have recurrent blood positive bowel movements which should be followed up with a GI doctor. Please obtain CBC and iron studies at your next primary care physician visit Plan of Treatment: Please follow-up with your primary care physician to stay and Obtain a referral for manager intelligence and GI doctor. Print Language: Mosotho Patient Instructions: Anemia Iron Deficiency Ch Stand Alone Forms: PCP List
[2024-06-24 17:15] LABS: HCT - HEMATOCRIT 26.6 % (37.0-47.0); HGB - HEMOGLOBIN 7.6 g/dL (12.0-16.0)
[2024-06-25] MEDS ORDERED: PANTOPRAZOLE 40 MG TABLET PO SCH ×2 (07:00)
[2024-06-25] MEDS ORDERED: FERROUS SULFATE 325 MG TABLET PO SCH (08:00)
== END 2024-06-24 18:00 | disposition home or self-care (01) ==
LOC: ED 09:01 → MS3 09:01
PROVIDERS: ADMIT Internal Medicine; ATTEND Internal Medicine
DX: D50.9 Iron deficiency anemia, unspecified; E83.51 Hypocalcemia; K57.30 Diverticulosis of large intestine without perforation or abscess without bleeding; Z87.891 Personal history of nicotine dependence; N28.89 Other specified disorders of kidney and ureter; K21.9 Gastro-esophageal reflux disease without esophagitis; K92.1 Melena

== ENCOUNTER 2024-11-05 11:48 | Inpatient (IN) ==
--- OUTSIDE RECORDS SUMMARY | 2024-11-05 12:12 | EXTERNAL MEDICAL SUMMARY RPT | Continuity of Care Document ---
Author Organization [facility] Address [address] [address] Phone Problems date description facility 2024-08-09 00:05 Anemia, unspecified [facility] 2024-08-09 00:05 Encounter for screen ing for malignant neoplasm of colon [facility] 2024-08-25 11:15 Anemia, unspecified [facility] 2024-08-25 11:15 Melena [facility] 2024-08-25 11:15 Urinary tract infection, site n ot specified [facility] 2024-08-25 11:15 Right lower quadrant pain [facility] 2024-08-25 11:15 Unspecified abdominal pain id [facility] 2024-08-25 11:15 Gross hematuria [facility] 2024-08-25 11:15 Dizziness and giddiness [facility] 2024-08-25 11:15 Weakness [facility] 2024-08-25 11:15 Other mechanical com plication of indwelling ureteral stent, initial encounter [facility] 2024-08-25 11:15 Encounter for screen ing for malignant neoplasm of colon [facility] 2024-10-11 13:59 Urinary tract infection, site n ot [facility] 2024-10-11 14:07 Urinary tract infection, site n ot [facility] 2024-10-14 08:41 Urinary tract infection, site n ot specified [facility] 2024-10-14 08:41 Dizziness and giddiness [facility] 2024-10-14 08:41 Other disturbances of smell and taste [facility] 2024-10-18 17:29 Malignant neoplasm of [facility] 2024-10-18 17:29 Urinary tract infection, site n ot specified [facility] 2024-10-22 08:11 Anemia, unspecified [facility] 2024-10-22 08:12 Anemia, unspecified [facility] 2024-10-22 11:41 Anemia, unspecified [facility] 2024-10-22 13:28 Anemia, unspecified [facility] 2024-10-22 13:28 [facility]at[facility] 2024-10-22 13:28 Other nonspecific [facility] 2024-10-23 06:32 [facility]at[facility]galy, not [facility] 2024-10-23 06:32 Other nonspecific abnormal find [facility] lung [facility] 2024-10-23 06:35 [facility], not [facility] 2024-10-27 12:32 Hepatomegaly, not elsewhere [facility] 2024-10-29 09:57 [facility] 2024-10-29 09:57 Urinary tract infection, site n ot specified [facility] 2024-10-29 09:57 Lower abdominal pain, [facility]specifi ed [facility] 2024-10-29 09:57 Dizziness and giddiness [facility] 2024-10-29 09:57 Other symptoms and s igns concerning food and fluid intake [facility] Results/Labs test date facility value unit notes Result panel 1 HGB - HEMOGLOBIN 2024-08-08 11:19 [facility] 10.7 g /dl (missing) HCT - HEMATOCRIT 2024-08-08 11:19 [facility] 36.9 % (missing) Result panel 2 NUCLEATED RED BLOOD CELLS AUTO 2024-10-11 10:09 [facility] 0.0 /100wbc (missing) NRBC ABSOLUTE COUNT (AUTO) 2024-10-11 10:09 [facility] 0.00 x10 3/ul (missing) BASOPHILS # (AUTO) 2024-10-11 10:09 [facility] 0.1 10 3/ul (missing) EOSINOPHILS # (AUTO) 2024-10-11 10:09 [facility] 0.1 10 3/ul (missing) ALBUMIN/GLOBULIN RATIO 2024-10-11 10:09 [facility] 0.6 (missing) (missing) BILIRUBIN,TOTAL 2024-10-11 10:09 [facility] 0.8 mg /dl As of December 2022 testing method has changed, this may include reference ranges. LYMPHOCYTES # (AUTO) 2024-10-11 10:09 [facility] 0.9 10 3/ul (missing) CREATININE 2024-10-11 10:09 [facility] 0.9 mg/dl As of December 2022 testing method has changed, this may include reference ranges. MONOCYTES # (AUTO) 2024-10-11 10:09 [facility] 1.3 10 3/ul (missing) ALT ALANINE AMINOTRANSFERASE 2024-10-11 10:09 [facility] 10 iu/l As of December 2022 testing method has changed, this may include reference ranges. ANION GAP 2024-10-11 10:09 [facility] 10.0 (missing ) (missing) MEAN PLATELET VOLUME 2024-10-11 10:09 [facility] 10.0 fl (missing) CALCIUM 2024-10-11 10:09 [facility] 10.2 mg/dl As of December 2022 testing method has changed, this may include reference ranges. HGB - HEMOGLOBIN 2024-10-11 10:09 [facility] 10.5 g /dl (missing) ALKALINE PHOSPHATASE 2024-10-11 10:09 [facility] 102 iu/l As of December 2022 testing method has changed, this may include reference ranges. AST ASPARTATE AMINOTRANSFERASE 2024-10-11 10:09 [facility] 12 iu/l As of December 2022 testing method has changed, this may include reference ranges. LIPASE 2024-10-11 10:09 [facility] 12 u/l As of December 2022 testing method has changed, this may include reference ranges. SODIUM 2024-10-11 10:09 [facility] 132 mmol/l As of December 2022 testing method has changed, this may include reference ranges. GLUCOSE 2024-10-11 10:09 [facility] 135 mg/dl As of December 2022 testing method has changed, this may include reference ranges. RED CELL DISTRIBUTION WIDTH 2024-10-11 10:09 [facility] 15.7 % (missing) NEUTROPHILS # (AUTO) 2024-10-11 10:09 [facility] 15.8 10 3/ul (missing) WHITE BLOOD COUNT 2024-10-11 10:09 [facility] 18.7 x10 3/ul (missing) BUN - BLOOD UREA NITROGEN 2024-10-11 10:09 [facility] 25 mg/dl As of Dec testing method has changed, this may include reference ranges. MEAN CORPUSCULAR HEMOGLOBIN 2024-10-11 10:09 [facility] 25.1 pg (missing) CARBON DIOXIDE - CO2 2024-10-11 10:09 [facility] 26 mmol/l As of December 2022 testing method has changed, this may include reference ranges. MEAN CORPUSCULAR HGB CONC 2024-10-11 10: [facility] 29.4 g/dl (missing) ALBUMIN 2024-10-11 10: [facility] 3.0 g/dl As of December 2022 testing method has changed, this may include reference ranges. POTASSIUM 2024-10-11 10:09 [facility] 3.9 mmol/l As of December 2022 testing method has changed, this may include reference ranges. HCT - HEMATOCRIT 2024-10-11 10: [facility] 35.7 % (missing) RED BLOOD COUNT 2024-10-11 10:09 [facility] 4.18 10 6/ul (missing) GLOBULIN 2024-10-11 10:09 [facility] 5.0 g/dl (missing) GFR - MDRD 2024-10-11 10:09 [facility] 62 (in g) Social History date description facility
[2024-11-05 12:53] LABS: BILIRUBIN,URINE NEGATIVE (NEGATIVE); GLUCOSE, URINE (UA) NEGATIVE (NEGATIVE); KETONES,URINE (UA) NEGATIVE (NEGATIVE); LEUKOCYTE ESTERASE, URINE MODERATE (NEGATIVE); NITRITE,URINE POSITIVE (NEGATIVE); OCCULT BLOOD,URINE LARGE (NEGATIVE); PROTEIN,URINE >=300 mg/dL (NEGATIVE); UROBILINOGEN,URINE 0.2 (NORMAL) E.U./dL (NORMAL)
[2024-11-05 12:56] LABS: CLARITY,URINE TURBID (CLEAR)
[2024-11-05 13:02] LABS: BACTERIA,URINE Moderate /HPF (None Seen); SQUAMOUS EPITHELIAL CELL,UR MANY Squamous (<= Few); WBC,URINE >25 /HPF (0-5)
--- NOTE | 2024-11-05 13:08 | ED Physician Documentation ---
History of Present Illness Stated complaint Stated Complaint: NVD, WEAKNESS Chief complaint Chief Complaint: General History obtained from History obtained from: Patient and Family Additonal information Additional information: 69-year-old woman with history of remote tobacco abuse and hernia. More recently was diagnosed with right hydronephrosis and a biopsy was attempted of a mass that was causing that but with out a tissue diagnosis. Subsequently she did follow-up with oncology and was recommended for a PET/CT. She been losing weight, about 20 pounds over an unclear timeframe and complains of right flank pain. Her daughter encouraged her to come in today. Her daughter lives in [place] but is supportive. The patient knew nothing about the PET/CT and tells me that she does not have cancer despite the imaging findings as they could not get a piece of it. Meds/Allgy Home Medications Ambulatory Orders Medication Instructions Recorded Confirmed No Known Home Medications 11/05/2401/23 Allergies Allergies Allergy/AdvReac Type Severity Reaction Status Date / Time bee venom protein (honey bee) Allergy Severe Anaphylaxis Verified 11/05/24 12:14 ammonia Allergy Difficulty Verified 11/05/24 12:14 breathing aspirin Allergy Rash Verified 11/05/24 12:14 ibuprofen Allergy Hallucinati Verified 11/05/24 12:14 ons PFSH Active Problems All Active Problems (Updated 11/05/24 @ 16:03 by Jasen Anderson MD) 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 (Acute) Orthostatic dizziness (Acute) Orthostatic hypotension (Acute) Lung mass (Acute) Healthcare maintenance (Acute) Hydronephrosis, right (Acute) Liver masses (Acute) Hyponatremia (Acute) Leukocytosis (Acute) Urinary tract infection (Acute) Abdominal malignancy (Acute) Leukocytosis (Acute) Abdominal mass (Acute) Urinary tract infection (Acute) Colon cancer screening (Acute) Tobacco abuse (Acute) GERD (gastroesophageal reflux disease) (Chronic) Upper GI bleeding (Acute) Iron (Fe) deficiency anemia (Acute) Stool guaiac positive (Acute) Anemia (Acute) Anemia (Acute) Pyelonephritis (Acute) Medical History Medical History (Updated 11/05/24 @ 16:03 by Jasen Anderson MD) Acute hyperkalemia Chronic arm pain Vomiting Abdominal pain of unknown etiology Hypokalemia Ureteral mass Pyelonephritis of right kidney Right flank pain Dizziness Dyspnea on exertion Other mechanical complication of indwelling ureteral stent, initial encounter Acute UTI Anemia Surgical History Surgical History History of ankle surgery right, ORIF with hardware Hx of appendectomy Social History Social History (Updated 11/05/24 @ 13:15 by Jamil Godfrey RN, BSN) Smoking Status: Former smoker If you are a former smoker, when did you quit? (Date/Year): 07/02/2021 Number of Years Smoked: 40 How many cigarettes a day do you smoke? (20 cigarettes=1 Pk): 20 (states, quit 3 months ago.) Second hand tobacco smoke exposure: No Do you dip or chew tobacco?: No Do you vape?: No Patient requests smoking cessation consult: No Initiate information on smoking cessation: No Living arrangement: At home Marital Status: Single Living Condition: With friend(s) Relationship: Level: Independent Do you feel safe in your home environment?: Yes Suffered physical, verbal, emotional, or financial abuse?: No History of Abuse: No ETOH Use: None Frequency: Occasional Substance Use: denies use POLST Patient has POLST: No POLST Status: Full Code Exam Exam Vital Signs: Vital Signs x48h Temp Pulse Resp BP Pulse Ox 11/05/24 16:18 37.6 C 80 12 118/66 11/05/24 14:14 73 16 130/71 96 11/05/24 12:04 36.8 C 111 H 17 87/65 L 95 She is hypotensive and tachycardic Constitutional She looks frail and cachectic Respiratory normal respiratory effort Cardiovascular normal heart rate noted, regular rhythm noted and no murmur Gastrointestinal abdomen soft to palpation and nontender to palpation Neurology GCS 15 Results Vitals Vitals: Vital Signs - 24 hr 11/05/24 12:04 11/05/24 13:19 11/05/24 13:55 Temperature 36.8 C Temperature Source Skin Pulse Rate 111 H Respiratory Rate 17 Blood Pressure 87/65 L O2 Saturation 95 O2 Source Room air Pain Intensity 10 6 2 11/05/24 14:14 11/05/24 16:18 Temperature 37.6 C Temperature Source Temporal Artery Scan Pulse Rate 73 80 Respiratory Rate 16 12 Blood Pressure 130/71 118/66 O2 Saturation 96 O2 Source Room air Room air Pain Intensity 2 0 Oxygen O2 Source Room air Labs Labs: Laboratory Tests 11/05/24 11/05/24 11/05/24 12:00 13:07 15:22 WBC 20.1 H RBC 4.26 Hgb 11.1 L Hct 37.3 MCV 87.6 MCH 26.1 L MCHC 29.8 L RDW 21.3 H Plt Count 585 H MPV 9.0 Neut # (Auto) 18.0 H Lymph # (Auto) 0.9 L [place] # (Auto) 0.8 Eos # (Auto) 0.1 Baso # (Auto) 0.1 Absolute Nucleated RBC 0.00 Nucleated RBC % 0.0 Manual Slide Review Indicated RBC Morph Micro Appear 4+ ANISOCYTOSIS Sodium 130 L Potassium 3.8 Chloride 94 L Carbon Dioxide 26 Anion Gap 10.0 BUN 22 H Creatinine 0.7 Estimated GFR (MDRD) 83 L Glucose 133 H Lactic Acid 5.1 H* 2.2 Calcium 10.9 H Total Bilirubin 0.5 AST 22 ALT 19 Alkaline Phosphatase 224 H Total Protein 7.6 Albumin 3.0 L Globulin 4.6 H Albumin/Globulin Ratio 0.7 L Lipase 22 Urine Color DARK YELLOW Urine Clarity TURBID Urine pH 6.0 Ur Specific [place] >=1.030 H Urine Protein >=300 H Urine Glucose (UA) NEGATIVE Urine Ketones NEGATIVE Urine Occult Blood LARGE H Urine Nitrite POSITIVE H Urine Bilirubin NEGATIVE Urine Urobilinogen 0.2 (NORMAL) Ur Leukocyte Esterase MODERATE H Urine RBC 6-10 H Urine WBC >25 H Ur Squamous Epith Cells MANY Squamous H Urine Bacteria Moderate H Ur Microscopic Review INDICATED Urine Culture Comments NOT INDICATED Rads (name of study) CT abdomen pelvis showing large pelvic malignancy with rapid interval progressi on of metastatic disease and hydronephrosis despite stent: Relevant Findings:: Final report received and EMP independent interpretation of test CT Chest: Relevant Findings:: Final report received and EMP independent interpretation of test (++CA) Interpretation: 1. Extensive malignancy above the diaphragms. 2. There is a large left supraclavicular lymph node mass. There is also extensive mediastinal and right hilar adenopathy. There is pulmonary metastatic disease, which includes a left basilar pulmonary nodule which has increased in size over a short interval. 3. Incidental note made of a large hiatal hernia. PD Medical Decision Making ED course ED course: This is a 69-year-old woman who based on the imaging findings likely has a m alignancy but no tissue diagnosis as of yet. It was recommended for her to have a PET scan but she knows nothing about it. She is losing weight and is probably dehydrated based on her vital signs. Plan to check labs and repeat CTs to give her some diagnostic information about a likely metastatic cancer. I will ask our oncology nurse navigator to come by as I think she could use the support as well. Repeat CTs demonstrate widespread metastatic cancer just in a few weeks that have really progressed quickly. Her stent is in place but with hydronephrosis on the right. She has a white count of 20, lactate of 5, and an infected looking urine (although it has squamous cells) so the concern would be for occluded pyelonephritis. Discussed case by phone with Dr. Tinoco who will see her and plans to switch out her stent. We will obtain blood cultures and give her antibiotics. Unfortunately I was notified that the patient received antibiotics prior to blood cultures. I was fairly blunt with the patient about the diagnosis of widely metastatic cancer. We also discussed the possibility of hospice and she was open to a hospice informational visit and I spoke with Dr. Preciado for same. Spoke with Dr. Villalpando for admission at 4:05 PM. The patient and family are counseled as to the diagnosis and need for admission. This document was made in part using voice recognition software, while efforts are made to proofread this document, sound alike an grammatical errors may occur. Discharge Plan Discharge Patient Disposition: 66 [facility] DC/Xfer Condition: Serious Clinical Impression: Pyelonephritis, Hydronephrosis, right, 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 Prescriptions: No Action No Known Home Medications Print Language: Grenadian
[2024-11-05 13:19] LABS: BASOPHILS # (AUTO) 0.1 10^3/uL (0.0-0.1); BASOPHILS % (AUTO) 0.4 %; EOSINOPHILS # (AUTO) 0.1 10^3/uL (0.0-0.7); EOSINOPHILS % (AUTO) 0.4 %; HCT - HEMATOCRIT 37.3 % (37.0-47.0); HGB - HEMOGLOBIN 11.1 g/dL (12.0-16.0); LYMPHOCYTES # (AUTO) 0.9 10^3/uL (1.5-3.5); LYMPHOCYTES % (AUTO) 4.6 %; MEAN CORPUSCULAR HEMOGLOBIN 26.1 pg (27.0-31.0); MEAN CORPUSCULAR HGB CONC 29.8 g/dL (32.0-36.0); MEAN CORPUSCULAR VOLUME 87.6 fL (81.0-99.0); MONOCYTES # (AUTO) 0.8 10^3/uL (0.0-1.0); NEUTROPHILS % (AUTO) 89.6 %; PLT - PLATELET COUNT 585 10^3/uL (130-450); RED BLOOD COUNT 4.26 10^6/uL (4.20-5.40); RED CELL DISTRIBUTION WIDTH 21.3 % (12.0-15.0); WHITE BLOOD COUNT 20.1 x10^3/uL (4.8-10.8)
[2024-11-05] MEDS: HYDROmorphone 1 MG/ML SYRINGE IVP STA (13:19)
[2024-11-05] MEDS: SODIUM CHLORIDE 0.9% 1,000 ML IV STA ×2 (13:21→14:37)
[2024-11-05] MEDS ORDERED: iohexoL-300 100 ML VIAL ONE (13:26)
[2024-11-05 13:35] LABS: ALBUMIN/GLOBULIN RATIO 0.7 (1.0-2.2); BILIRUBIN,TOTAL 0.5 mg/dL (0.2-1.0); CALCIUM 10.9 mg/dL (8.5-10.3); CREATININE 0.7 mg/dL (0.6-1.3); POTASSIUM 3.8 mmol/L (3.5-4.5); TOTAL PROTEIN 7.6 g/dL (6.4-8.9)
[2024-11-05 13:45] LABS: RBC MORPHOLOGY (MULTIPLE) 4+ ANISOCYTOSIS (NORMAL); SLIDE REVIEW? Indicated
[2024-11-05] MEDS: iohexoL-300 100 ML VIAL IVP ONE (13:50)
--- NOTE | 2024-11-05 14:50 | CT Report ---
PROCEDURE: CT Abdomen/Pelvis W INDICATIONS: reeval likely malginancy weight loss iv only CONTRAST: Omni 300 100ml TECHNIQUE: After the administration of intravenous contrast, a CT scan of the abdomen and pelvis was performed. Images were recorded and evaluated at appropriate window settings. Reformats: coronal and sagittal. For radiation dose reduction, the following was used: automated exposure control, adjustment of mA and/or kV according to patient size. COMPARISON: 10/18/2024. FINDINGS: Image quality: Diagnostic. Lower chest: Short interval increase in size and extreme left basilar metastatic pulmonary nodule, previously measuring 1.6 x 1.5 cm, and currently measuring 1.7 x 1.8 cm. Reference current image 39 of series 8. Please refer to the separate report for other findings in the lungs. Large hiatal hernia. Normal heart size. Liver: Rapid short interval progression of extensive liver metastatic disease. For instance a right lobe liver lesion straddling segments 5 and 6 was barely perceptible on the previous study. Reference previous image 21 of series 2. On current study image 19 of series 2, measures approximately 3.3 x 4.0 cm. Another example is a right lobe liver lesion anterior to the right main portal vein which was not visible on the previous study and now measures approximately 1.4 x 2.3 cm on current image 30 of series 2. There is diffuse involvement of the right and left lobes of the liver.. Gallbladder: No radiopaque stones or wall thickening. Biliary tree: No intrahepatic or extrahepatic dilation, accounting for age. Spleen: No splenomegaly. Pancreas: No pancreatic ductal dilation. Adrenals: No adrenal nodule. Kidneys and ureters: Again noted is the presence of a right double-J ureteral stent which does not decompress the right kidney, as before. There is marked right hydronephrosis with right renal cortical volume loss. Left kidney and ureter are unremarkable. Stomach, bowel and peritoneum: No gastric or small bowel dilation. No abnormal wall thickening. No pathologic free fluid. Lymph nodes: Again noted is extensive retroperitoneal adenopathy, as previously noted. There is extensive right common iliac adenopathy, as previously present. Vessels: No infrarenal aortic aneurysm. Patent portal vein. PELVIS Reproductive organs: Presence or absence of the uterus is difficult to identify. Bladder: Very large pelvic mass which involves the bladder and is partially necrotic and extends outside the bladder, as before. Pelvic lymph nodes: No pelvic adenopathy by size criteria. Bones: No aggressive osseous abnormality. Other: No significant ventral or inguinal hernia. IMPRESSION: 1. 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 2.. Rapid interval progression of metastatic disease. This includes a described, a metastatic lesion and extensive liver metastatic disease. 3. Extensive retroperitoneal malignant adenopathy. 4. As before, a right ureteral stent fails to decompress the right kidney. There is marked right hydronephrosis and right renal cortical volume loss. Comment: Please refer to separate report for findings in the chest. Reviewed by: Hai Sosa MD on 11/05/2024 2:49 PM PDT Approved by: Hai Sosa MD on 11/05/2024 2:49 PM PDT Station ID: [id number]
--- NOTE | 2024-11-05 15:00 | CT Report ---
PROCEDURE: CT Chest W INDICATIONS: reeval likely malginancy weight loss CONTRAST: Omni 300 100ml TECHNIQUE: After the administration of intravenous contrast, a CT scan of the chest was performed. Images were recorded and evaluated at appropriate window settings. Reformats: axial MIP of the chest, coronal and sagittal. For radiation dose reduction, the following was used: automated exposure control, adjustment of mA and/or kV according to patient size. COMPARISON: CT abdomen and pelvis from today, CT abdomen and pelvis from 10/18/2024. FINDINGS: Image quality: Diagnostic. Chest wall and lower neck: No thyroid nodule which requires sonographic follow up. No breast mass. There is malignant left supraclavicular adenopathy measuring 2.4 x 2.5 cm on axial image 6 of series 2. Lungs and pleura: No consolidation. No pleural effusions. No pneumothorax. This is the first dedicated chest CT. However, a left basilar metastatic lesion has increased in size over a short interval. On previous image 35 of series 8 measuring approximately 1.1 x 1.6 cm. On current image 199 of series 10 and measures approximately 1.3 x 1.9 cm. No significant change in the size of a right lower lobe pulmonary nodule, previously measuring 1.0 cm on prior image 14 of series 8 and currently measuring 1.0 cm on current image 178 series 10. On current image 134 is a right lower lobe pulmonary nodule which was not previously imaged, measuring 0.6 cm. There is an unchanged pleural-based pulmonary nodule in the right lower lobe on previous image 34 of series 8 and current image 189, measuring 0.7 x 0.6 cm.. Mediastinum: Heart size is normal. No pericardial effusion. No large vessel abnormality. Extensive malignant mediastinal adenopathy. Findings include 2 AP window lymph nodes, the larger of which measures 2.1 x 1.7 cm on axial image 29 of series 2. A subcarinal lymph node on image 45 measures 2.3 x 2.7 cm. There is prominent malignant right hilar and infrahilar adenopathy. Large hiatal hernia. Bones: No aggressive osseous abnormality. Upper Abdomen: Extensive hepatic metastatic disease noted. Please refer to a separate report. IMPRESSION: 1. Extensive malignancy above the diaphragms. 2. There is a large left supraclavicular lymph node mass. There is also extensive mediastinal and right hilar adenopathy. There is pulmonary metastatic disease, which includes a left basilar pulmonary nodule which has increased in size over a short interval. 3. Incidental note made of a large hiatal hernia. Reviewed by: Hai Sosa MD on 11/05/2024 2:58 PM PDT Approved by: Hai Sosa MD on 11/05/2024 2:58 PM PDT Station ID: [id number]
[2024-11-05] MEDS: cefTRIAXone 1 GM VIAL IVP STA (16:07)
--- NOTE | 2024-11-05 17:07 | HISTORY & PHYSICAL EXAMINATION ---
Chief Complaint Chief Complaint Chief Complaint: Abdominal pain History of Present Illness Admitted From Admitted From:: Home History Obtained From History obtained from: Patient and daughter at bedside History of Present Illness HPI Comment/Other: 69-year-old female PMH of GERD, GI bleed, right renal mass requiring stents presents to the hospital with abdominal pain and flank pain. She has history of noncompliance with medication/treatment regimen. Unsure if this is by choice or if it is a developing dementia. She was seen by an oncologist and was recommended for PET/CT. She never got this done and endorsed to the ER provider that she had no idea what he was talking about. In the ER, workup was significant for worsening metastatic disease. CT abdomen/pelvis shows liver mets, pelvic mets. Chest CT shows extensive malignancy above the diaphragms and enlarged lymph nodes. She has right sided hydronephrosis, so urology was contacted by ER provider. Plans were made for her to come into the hospital for antibiotics and IV fluids and ureteral stent would be placed soon. Hospitalist was contacted for admission for sepsis as she had a high heart rate, low blood pressure, elevated white blood cell count and likely UTI on UA Meds/Allgy Home Medications Ambulatory Orders Medication Instructions Recorded Confirmed No Known Home Medications 11/05/2401/23 Allergies Allergies Allergy/AdvReac Type Severity Reaction Status Date / Time bee venom protein (honey bee) Allergy Severe Anaphylaxis Verified 11/05/24 12:14 ammonia Allergy Difficulty Verified 11/05/24 12:14 breathing aspirin Allergy Rash Verified 11/05/24 12:14 ibuprofen Allergy Hallucinati Verified 11/05/24 12:14 ons PFS Active Problems All Active Problems (Updated 11/05/24 @ 16:57 by Mayito Hickman DNP) Sepsis (Acute) 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 (Acute) Orthostatic dizziness (Acute) Orthostatic hypotension (Acute) Lung mass (Acute) Healthcare maintenance (Acute) Hydronephrosis, right (Acute) Liver masses (Acute) Hyponatremia (Acute) Leukocytosis (Acute) Urinary tract infection (Acute) Abdominal malignancy (Acute) Leukocytosis (Acute) Abdominal mass (Acute) Urinary tract infection (Acute) Colon cancer screening (Acute) Tobacco abuse (Acute) GERD (gastroesophageal reflux disease) (Chronic) Upper GI bleeding (Acute) Iron (Fe) deficiency anemia (Acute) Stool guaiac positive (Acute) Anemia (Acute) Anemia (Acute) Pyelonephritis (Acute) Medical History Medical History (Updated 11/05/24 @ 16:57 by Mayito Hickman DNP) Acute hyperkalemia Chronic arm pain Vomiting Abdominal pain of unknown etiology Hypokalemia Ureteral mass Pyelonephritis of right kidney Right flank pain Dizziness Dyspnea on exertion Other mechanical complication of indwelling ureteral stent, initial encounter Acute UTI Anemia Surgical History Surgical History History of ankle surgery right, ORIF with hardware Hx of appendectomy Social History Social History (Updated 11/05/24 @ 13:15 by Jamil Godfrey, RN, BSN) Smoking Status: Former smoker If you are a former smoker, when did you quit? (Date/Year): 10 Number of Years Smoked: 40 How many cigarettes a day do you smoke? (20 cigarettes=1 Pk): 20 Second hand tobacco smoke exposure: No Do you dip or chew tobacco?: No Do you vape?: No Patient requests smoking cessation consult: No Initiate information on smoking cessation: No Living arrangement: At home Marital Status: Single Living Condition: With friend(s) Relationship: Level: Independent Do you feel safe in your home environment?: Yes Suffered physical, verbal, emotional, or financial abuse?: No History of Abuse: No ETOH Use: None Frequency: Occasional Substance Use: denies use POLST Patient has POLST: No POLST Status: Full Code Review of Systems Status of ROS: 10 or more systems reviewed and unremarkable except as noted in history and below Constitutional Denies: Fever or Chills Cardiovascular Denies: Irregular heart rate, chest pain, palpitations or shortness of breath with exertion Respiratory Denies: Shortness of breath Gastrointestinal Reports: Abdominal pain Genitourinary Reports: Flank pain Exam Exam Vital Signs: Vital Signs x48h Temp Pulse Pulse Resp BP BP Pulse Ox 11/05/24 17:30 37.0 C 75 20 135/73 H 98 11/05/24 17:09 81 14 102/70 97 11/05/24 16:28 36.9 C 74 14 120/71 99 11/05/24 16:18 37.6 C 80 12 118/66 11/05/24 14:14 73 16 130/71 96 11/05/24 12:04 36.8 C 111 H 17 87/65 L 95 Constitutional Frail, elderly female in no acute [facility] normocephalic and head/scalp atraumatic Eyes PERRL Neck/C-Spine visual inspection normal Lymph no lymphadenopathy noted Chest inspection of chest normal Respiratory breath sounds equal bilaterally Cardiovascular normal heart rate noted Gastrointestinal tender to palpation (mild) Genitourinary CVA tenderness noted Extremities normal to inspection Neurology GCS 15 Psychiatry Some issues with memory, suspect impaired cognition Conclusion/Plan Problem List (1) Sepsis: Plan: Lactate 5.1, WBC 20.1, HR 111 with BP 87/65 on presentation Received 2 L NS bolus per ER provider, with improvement in vital signs and resolution of lactic acidosis Likely secondary to UTI Managing with Rocephin, vancomycin as it is likely urinary source and she has history of Klebsiella and Enterococcus UTIs Blood cultures were obtained after first dose of antibiotics Urine cultures in process (2) Hydronephrosis, right: Plan: Hydronephrosis secondary to ureteral obstruction from metastatic disease Urology consulted by ER provider Plan for OR in a.m. 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 She was seen by oncology, but did not undergo the recommended testing. Hospice has been consulted for an informational visit. Patient is having pain from this, I have ordered Dilaudid 0.5 mg IV as needed Plan Admit inpatient med floor Patient endorsed full code to me. Daughter at bedside did not object Patient named her daughter is her surrogate decision-maker Lab Results Lab results reviewed: Yes 11/05/24 13:07 11/05/24 13:07 Diagnostic Imaging Results Diagnostic Imaging Results: positive Final report reviewed Core Measures Anticipated LOS I expect patient to be DC'd or transferred within 96 hours.: Yes DVT/VTE - Prophylaxis VTE/DVT Prophylaxis med ordered at admit?: Yes
--- OUTSIDE RECORDS SUMMARY | 2024-11-05 17:11 | EXTERNAL MEDICAL SUMMARY RPT | Continuity of Care Document ---
Author Organization [place] Address [address] [address] Phone Problems date description facility 2024-08-09 00:05 Anemia, unspecified [place] [facility] 2024-08-09 00:05 Encounter for screen ing for malignant neoplasm of colon [facility] 2024-08-25 11:15 Anemia, unspecified [place] [facility] 2024-08-25 11:15 [facility] 2024-08-25 11:15 Urinary tract infection, site n ot specified [facility] [facility] 2024-08-25 11:15 Right lower quadrant pain id[facility] 2024-08-25 11:15 Unspecified abdominal pain id [facility] 2024-08-25 11:15 Gross hematuria [facility] 2024-08-25 11:15 Dizziness and giddiness [facility] 2024-08-25 11:15 Weakness [facility] 2024-08-25 11:15 Other mechanical com plication of indwelling ureteral stent, initial encounter [facility] 2024-08-25 11:15 Encounter for screen ing for malignant neoplasm of colon [facility] 2024-10-11 13:59 Urinary tract infection, site n ot specified [facility] 2024-10-11 14:07 Urinary tract infection, site n ot specified [facility] 2024-10-14 08:41 Urinary tract infection, site n ot specified [facility] 2024-10-14 08:41 Dizziness and giddiness [facility] [employer] 2024-10-14 08:41 Other disturbances of smell and taste [facility] 2024-10-18 17:29 Malignant neoplasm of abdomen [facility] 2024-10-18 17:29 Urinary tract infection, site n ot specified [facility] 2024-10-22 08:11 Anemia, unspecified [place] [facility] 2024-10-22 08:12 Anemia, unspecified [place] [facility] 2024-10-22 11:41 Anemia, unspecified [place] [facility] 2024-10-22 13:28 Anemia, unspecified [facility] 2024-10-22 13:28 Hepatomegaly, not [facility] 2024-10-22 13:28 Other nonspecific abnormal find ing [facility] lung [facility] 2024-10-23 06:32 Hepatomegaly, not elsewhere [facility] 2024-10-23 06:32 Other nonspecific abnormal find ing of lung [facility] 2024-10-23 06:35 Hepatomegaly, not elsewhere [facility] 2024-10-27 12:32 Hepatomegaly, not elsewhere [facility] 2024-10-29 09:57 Malignant [facility] of [facility] 2024-10-29 09:57 Urinary tract infection, site n ot specified [facility] 2024-10-29 09:57 Lower abdominal pain, unspecifi ed [facility] 2024-10-29 09:57 Dizziness and giddiness [facility] 2024-10-29 09:57 Other symptoms and s igns concerning food and fluid intake [facility] Results/Labs test date facility value unit notes Result panel 1 HGB - HEMOGLOBIN 2024-08-08 11:19 [facility] 10.7 g /dl (missing) HCT - HEMATOCRIT 2024-08-08 11:19 [facility] 36.9 % (missing) Result panel 2 NUCLEATED RED BLOOD CELLS AUTO 2024-10-11 10:09 [facility] 0.0 /100wbc (missing) NRBC ABSOLUTE COUNT (AUTO) 2024-10-11 10:09 [facility] 0.00 x10 3/ul (missing) BASOPHILS # (AUTO) 2024-10-11 10:09 [facility] 0.1 10 3/ul (missing) EOSINOPHILS # (AUTO) 2024-10-11 10:09 [facility] 0.1 10 3/ul (missing) ALBUMIN/GLOBULIN RATIO 2024-10-11 10:09 [facility] 0.6 (missing) (missing) BILIRUBIN,TOTAL 2024-10-11 10:09 [facility] 0.8 mg /dl As of December 2022 testing method has changed, this may include reference ranges. LYMPHOCYTES # (AUTO) 2024-10-11 10:09 [facility] 0.9 10 3/ul (missing) CREATININE 2024-10-11 10:09 [facility] 0.9 mg/dl As of December 2022 testing method has changed, this may include reference ranges. MONOCYTES # (AUTO) 2024-10-11 10:09 [facility] 1.3 10 3/ul (missing) ALT ALANINE AMINOTRANSFERASE 2024-10-11 10:09 [facility] 10 iu/l As of December 2022 testing method has changed, this may include reference ranges. ANION GAP 2024-10-11 10:09 [facility] 10.0 (missing ) (missing) MEAN PLATELET VOLUME 2024-10-11 10:09 [facility] 10.0 fl (missing) CALCIUM 2024-10-11 10:09 [facility] 10.2 mg/dl As of December 2022 testing method has changed, this may include reference ranges. HGB - HEMOGLOBIN 2024-10-11 10:09 [facility] 10.5 g /dl (missing) ALKALINE PHOSPHATASE 2024-10-11 10:09 [facility] 102 iu/l As of December 2022 testing method has changed, this may include reference ranges. AST ASPARTATE AMINOTRANSFERASE 2024-10-11 10:09 [facility] 12 iu/l As of December 2022 testing method has changed, this may include reference ranges. LIPASE 2024-10-11 10:09 [facility] 12 u/l As of December 2022 testing method has changed, this may include reference ranges. SODIUM 2024-10-11 10:09 [facility] 132 mmol/l As of December 2022 testing method has changed, this may include reference ranges. GLUCOSE 2024-10-11 10:09 [facility] 135 mg/dl As of December 2022 testing method has changed, this may include reference ranges. RED CELL DISTRIBUTION WIDTH 2024-10-11 10:09 [facility] 15.7 % (missing) NEUTROPHILS # (AUTO) 2024-10-11 10:09 [facility] 15.8 10 3/ul (missing) WHITE BLOOD COUNT 2024-10-11 10:09 [facility] 18.7 x10 3/ul (missing) BUN - BLOOD UREA NITROGEN 2024-10-11 10:09 [facility] 25 mg/dl As of Dec testing method has changed, this may include reference ranges. MEAN CORPUSCULAR HEMOGLOBIN 2024-10-11 10:09 [facility] 25.1 pg (missing) CARBON DIOXIDE - CO2 2024-10-11 10:09 [facility] 26 mmol/l As of December 2022 testing method has changed, this may include reference ranges. MEAN CORPUSCULAR HGB CONC 2024-10-11 10: [facility] 29.4 g/dl (missing) ALBUMIN 2024-10-11 10: [facility] 3.0 g/dl As of December 2022 testing method has changed, this may include reference ranges. POTASSIUM 2024-10-11 10:09 [facility] 3.9 mmol/l As of December 2022 testing method has changed, this may include reference ranges. HCT - HEMATOCRIT 2024-10-11 10: [facility] 35.7 % (missing) RED BLOOD COUNT 2024-10-11 10:09 [facility] 4.18 10 6/ul (missing) GLOBULIN 2024-10-11 10:09 [facility] 5.0 g/dl (missing) GFR - MDRD 2024-10-11 10:09 [facility] 62 (in g) Social History date description facility
[2024-11-05] MEDS ORDERED: ONDANSETRON ODT 4 MG TABLET TL PRN (17:16)
[2024-11-05] MEDS ORDERED: ONDANSETRON 4 MG/2 ML VIAL IVP PRN (17:16)
[2024-11-05] MEDS: SODIUM CHLORIDE 0.9% 1,000 ML IV SCH (17:29)
[2024-11-05] MEDS: SODIUM CHLORIDE FLUSH 0.9% 10 ML SYRINGE IVP SCH (17:30)
[2024-11-05] MEDS: HYDROmorphone 0.5 MG/0.5 ML SYRINGE IVP PRN (18:33)
--- NOTE | 2024-11-05 20:56 | CONSULTATION NOTE ---
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 I referred her to [facility] at the time for distal ureterectomy and reimplant. She did not go to this consult. She presented to [place] in January 2024 with a nonfunctioning right ureteral stent which was then replaced in March 2024. She again was referred to [place] for further management. She did not follow-up. She is now presents to the ER multiple times with dizziness or flank pain. She had a CT scan about a month ago which showed a massively enlarged right ureteral mass and pelvic mass with obstruction. She was referred to follow-up with myself but she has not. She presents again today with worsening symptomatology. CT scan shows a massively enlarged pelvic mass again. Even larger than a month ago. Her stent appears to no longer be functioning. She had a CT scan of her chest as well showing massive metastatic pulmonary disease Her urinalysis today is concerning for infection and she has leukocytosis to 20,000. Her renal function is at baseline. Seen today with her daughter DRE Active Problems All Active Problems (Updated 11/05/24 @ 16:57 by Mayito Hickman DNP) Sepsis (Acute) 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 (Acute) Orthostatic dizziness (Acute) Orthostatic hypotension (Acute) Lung mass (Acute) Healthcare maintenance (Acute) Hydronephrosis, right (Acute) Liver masses (Acute) Hyponatremia (Acute) Leukocytosis (Acute) Urinary tract infection (Acute) Abdominal malignancy (Acute) Leukocytosis (Acute) Abdominal mass (Acute) Urinary tract infection (Acute) Colon cancer screening (Acute) Tobacco abuse (Acute) GERD (gastroesophageal reflux disease) (Chronic) Upper GI bleeding (Acute) Iron (Fe) deficiency anemia (Acute) Stool guaiac positive (Acute) Anemia (Acute) Anemia (Acute) Pyelonephritis (Acute) Medical History Medical History (Updated 11/05/24 @ 16:57 by Mayito Hickman DNP) Acute hyperkalemia Chronic arm pain Vomiting Abdominal pain of unknown etiology Hypokalemia Ureteral mass Pyelonephritis of right kidney Right flank pain Dizziness Dyspnea on exertion Other mechanical complication of indwelling ureteral stent, initial encounter Acute UTI Anemia Surgical History Surgical History History of ankle surgery right, ORIF with hardware Hx of appendectomy Social History Social History (Updated 11/05/24 @ 13:15 by Jamil Godfrey RN, BSN) Smoking Status: Former smoker If you are a former smoker, when did you quit? (Date/Year): 10 Number of Years Smoked: 40 How many cigarettes a day do you smoke? (20 cigarettes=1 Pk): 20 Second hand tobacco smoke exposure: No Do you dip or chew tobacco?: No Do you vape?: No Patient requests smoking cessation consult: No Initiate information on smoking cessation: No Living arrangement: At home Marital Status: Single Living Condition: With friend(s) Relationship: Level: Independent Do you feel safe in your home environment?: Yes Suffered physical, verbal, emotional, or financial abuse?: No History of Abuse: No ETOH Use: None Frequency: Occasional Substance Use: denies use POLST Patient has POLST: No POLST Status: Full Code Meds/Allgy Home Medications Ambulatory Orders Medication Instructions Recorded Confirmed No Known Home Medications 11/05/24 0501/23 Allergies Allergies Allergy/AdvReac Type Severity Reaction Status Date / Time bee venom protein (honey bee) Allergy Severe Anaphylaxis Verified 11/05/24 12:14 ammonia Allergy Difficulty Verified 11/05/24 12:14 breathing aspirin Allergy Rash Verified 11/05/24 12:14 ibuprofen Allergy Hallucinati Verified 11/05/24 12:14 ons Results Lab Results Lab results reviewed: Yes 11/05/24 13:07 11/05/24 13:07 Other Lab Results: Lab Results x24hrs 11/05/24 11/05/24 11/05/24 Range/Units 15:22 13:07 12:00 WBC 20.1 H (4.8-10.8) x10^3/uL RBC 4.26 (4.20-5.40) 10^6/uL Hgb 11.1 L (12.0-16.0) g/dL Hct 37.3 (37.0-47.0) % MCV 87.6 (81.0-99.0) fL MCH 26.1 L (27.0-31.0) pg MCHC 29.8 L (32.0-36.0) g/dL RDW 21.3 H (12.0-15.0) % Plt Count 585 H (130-450) 10^3/uL MPV 9.0 (7.9-10.8) fL Neut # (Auto) 18.0 H (1.5-6.6) 10^3/uL Lymph # (Auto) 0.9 L (1.5-3.5) 10^3/uL [place] # (Auto) 0.8 (0.0-1.0) 10^3/uL Eos # (Auto) 0.1 (0.0-0.7) 10^3/uL Baso # (Auto) 0.1 (0.0-0.1) 10^3/uL Absolute Nucleated RBC 0.00 x10^3/uL Nucleated RBC % 0.0 /100WBC Manual Slide Review Indicated RBC Morph Micro Appear 4+ ANISOCYTOSIS (NORMAL) Sodium 130 L (135-145) mmol/L Potassium 3.8 (3.5-4.5) mmol/L Chloride 94 L (101-111) mmol/L Carbon Dioxide 26 (21-32) mmol/L Anion Gap 10.0 (6-13) BUN 22 H (6-20) mg/dL Creatinine 0.7 (0.6-1.3) mg/dL Estimated GFR (MDRD) 83 L (>89) Glucose 133 H (74-104) mg/dL Lactic Acid 2.2 5.1 H* (0.5-2.2) mmol/L Calcium 10.9 H (8.5-10.3) mg/dL Total Bilirubin 0.5 (0.2-1.0) mg/dL AST 22 (10-42) IU/L ALT 19 (10-60) IU/L Alkaline Phosphatase 224 H (42-121) IU/L Total Protein 7.6 (6.4-8.9) g/dL Albumin 3.0 L (3.2-5.5) g/dL Globulin 4.6 H (2.1-4.2) g/dL Albumin/Globulin Ratio 0.7 L (1.0-2.2) Lipase 22 (11-82) U/L Urine Color DARK YELLOW Urine Clarity TURBID (CLEAR) Urine pH 6.0 (5.0-7.5) PH Ur Specific [place] >=1.030 H (1.002-1.030) Urine Protein >=300 H (NEGATIVE) mg/dL Urine Glucose (UA) NEGATIVE (NEGATIVE) mg/dL Urine Ketones NEGATIVE (NEGATIVE) mg/dL Urine Occult Blood LARGE H (NEGATIVE) Urine Nitrite POSITIVE H (NEGATIVE) Urine Bilirubin NEGATIVE (NEGATIVE) Urine Urobilinogen 0.2 (NORMAL) (NORMAL) E.U./dL Ur Leukocyte Esterase MODERATE H (NEGATIVE) Urine RBC 6-10 H (0-5) /HPF Urine WBC >25 H (0-5) /HPF Ur Squamous Epith Cells MANY Squamous H (<= Few) Urine Bacteria Moderate H (None Seen) /HPF Ur Microscopic Review INDICATED Urine Culture Comments NOT INDICATED Exam Exam Vital Signs: Vital Signs x48h Temp Pulse Pulse Resp BP BP Pulse Ox 11/05/24 17:30 37.0 C 75 20 135/73 H 98 11/05/24 17:09 81 14 102/70 97 11/05/24 16:28 36.9 C 74 14 120/71 99 11/05/24 16:18 37.6 C 80 12 118/66 11/05/24 14:14 73 16 130/71 96 NAD RRR CTA b/l palpable and tender firm mass in right lower hemiabdomen Conclusion/Plan Problem List (1) Sepsis: (2) Hydronephrosis, right: Plan: right hydronephrosis from obstructing ureteral mass, stent in place but overdue for exchange Concern for UTI Recommend cystoscopy, right ureteral stent exchange in the OR tomorrow under anesthesia. Specific risks of infection, bleeding, injury to adjacent structures, need for additional procedures, failure of therapy, pain, anesthesia risk were discussed Patient states understanding and consents to the above plan N.p.o. at midnight Ceftriaxone blood cx Ucx (3) 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: Plan: She will ultimately need a tissue biopsy to consider palliative treatments. She and her daughter are considering hospice care which may be reasonable. I estimate without aggressive treatment she would likely only have a few months to live This was discussed with her and her daughter Lab Results Lab results reviewed: Yes 11/05/24 13:07 11/05/24 13:07
[2024-11-06 05:32] LABS: BASOPHILS # (AUTO) 0.1 10^3/uL (0.0-0.1); BASOPHILS % (AUTO) 0.5 %; EOSINOPHILS # (AUTO) 0.2 10^3/uL (0.0-0.7); EOSINOPHILS % (AUTO) 1.4 %; HCT - HEMATOCRIT 29.6 % (37.0-47.0); HGB - HEMOGLOBIN 8.8 g/dL (12.0-16.0); LYMPHOCYTES # (AUTO) 0.9 10^3/uL (1.5-3.5); LYMPHOCYTES % (AUTO) 6.7 %; MEAN CORPUSCULAR HEMOGLOBIN 26.5 pg (27.0-31.0); MEAN CORPUSCULAR HGB CONC 29.7 g/dL (32.0-36.0); MEAN CORPUSCULAR VOLUME 89.2 fL (81.0-99.0); MEAN PLATELET VOLUME 9.2 fL (7.9-10.8); MONOCYTES # (AUTO) 0.8 10^3/uL (0.0-1.0); MONOCYTES % (AUTO) 5.8 %; NEUTROPHILS # (AUTO) 11.7 10^3/uL (1.5-6.6); NEUTROPHILS % (AUTO) 84.5 %; PLT - PLATELET COUNT 492 10^3/uL (130-450); RED BLOOD COUNT 3.32 10^6/uL (4.20-5.40); RED CELL DISTRIBUTION WIDTH 21.7 % (12.0-15.0); WHITE BLOOD COUNT 13.9 x10^3/uL (4.8-10.8)
[2024-11-06 05:38] LABS: SLIDE REVIEW? Indicated
[2024-11-06 05:48] LABS: CREATININE 0.5 mg/dL (0.6-1.3); POTASSIUM 4.3 mmol/L (3.5-4.5)
[2024-11-06 06:01] LABS: PLATELET ESTIMATE, MANUAL INCREASED (>450,000) (NORMAL); PLATELET MORPHOLOGY NORMAL APPEARANCE (NORMAL)
--- NOTE | 2024-11-06 08:03 | ANESTHESIA PROCEDURE NOTE ---
Pre-Anesthesia VS, & Labs Diagnosis Surgical Diagnosis:: Hydronephrosis, right Procedure Procedure: cystoscopy, right stent exchange Vitals Vital Signs: Temp Pulse Resp BP Pulse Ox 36.4 C L 74 18 96/55 L 96 11/06/24 07:23 11/06/24 07:23 11/06/24 07:23 11/06/24 07:23 11/06/24 07:23 Is Patient ?: Not Applicable Lab Results Current Lab Results: Laboratory Tests 11/06/24 04:55: RBC Morph Micro Appear 1+ OVALOCYTES, Sodium 131 L, Potassium 4.3, Chloride 103, Carbon Dioxide 22, Anion Gap 6.0, BUN 14, Creatinine 0.5 L, Estimated GFR (MDRD) 122, Glucose 101, Calcium 9.0 11/06/24 04:55: RBC Morph Micro Appear 2+ HYPOCHROMASIA 11/06/24 04:55: WBC 13.9 H, RBC 3.32 L, Hgb 8.8 L, Hct 29.6 L, MCV 89.2, MCH 26.5 L, MCHC 29.7 L, RDW 21.7 H, Plt Count 492 H, MPV 9.2, Neut # (Auto) 11.7 H, Lymph # (Auto) 0.9 L, [place] # (Auto) 0.8, Eos # (Auto) 0.2, Baso # (Auto) 0.1, Absolute Nucleated RBC 0.00, Nucleated RBC % 0.0, Manual Slide Review Indicated, Platelet Estimate INCREASED (>450,000), Platelet Morphology NORMAL APPEARANCE, RBC Morph Micro Appear 1+ ANISOCYTOSIS 11/05/24 15:22: Lactic Acid 2.2 11/05/24 13:07: WBC 20.1 H, RBC 4.26, Hgb 11.1 L, Hct 37.3, MCV 87.6, MCH 26.1 L , MCHC 29.8 L, RDW 21.3 H, Plt Count 585 H, MPV 9.0, Neut # (Auto) 18.0 H, Lymph # (Auto) 0.9 L, [place] # (Auto) 0.8, Eos # (Auto) 0.1, Baso # (Auto) 0.1, Absolute Nucleated RBC 0.00, Nucleated RBC % 0.0, Manual Slide Review Indicated, RBC Morph Micro Appear 4+ ANISOCYTOSIS, Sodium 130 L, Potassium 3.8, Chloride 94 L, Carbon Dioxide 26, Anion Gap 10.0, BUN 22 H, Creatinine 0.7, Estimated GFR (MDRD) 83 L, Glucose 133 H, Lactic Acid 5.1 H*, Calcium 10.9 H, Total Bilirubin 0.5, AST 22, ALT 19, Alkaline Phosphatase 224 H, Total Protein 7.6, Albumin 3.0 L, Globulin 4.6 H, Albumin/Globulin Ratio 0.7 L, Lipase 22 Lab results reviewed: Yes 11/06/24 04:55 11/06/24 04:55 Meds/Allgy Home Medications Ambulatory Orders Medication Instructions Recorded Confirmed pantoprazole 40 mg tablet,delayed mg PO 11/06/24 release Allergies Allergies Allergy/AdvReac Type Severity Reaction Status Date / Time bee venom protein (honey bee) Allergy Severe Anaphylaxis Verified 11/05/24 12:14 ammonia Allergy Difficulty Verified 11/05/24 12:14 breathing aspirin Allergy Rash Verified 11/05/24 12:14 ibuprofen Allergy Hallucinati Verified 11/05/24 12:14 ons PFSH Active Problems All Active Problems Sepsis (Acute) 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 (Acute) Orthostatic dizziness (Acute) Orthostatic hypotension (Acute) Lung mass (Acute) Healthcare maintenance (Acute) Hydronephrosis, right (Acute) Liver masses (Acute) Hyponatremia (Acute) Leukocytosis (Acute) Urinary tract infection (Acute) Abdominal malignancy (Acute) Leukocytosis (Acute) Abdominal mass (Acute) Urinary tract infection (Acute) Colon cancer screening (Acute) Tobacco abuse (Acute) GERD (gastroesophageal reflux disease) (Chronic) Upper GI bleeding (Acute) Iron (Fe) deficiency anemia (Acute) Stool guaiac positive (Acute) Anemia (Acute) Anemia (Acute) Pyelonephritis (Acute) Medical History Medical History Acute hyperkalemia Chronic arm pain Vomiting Abdominal pain of unknown etiology Hypokalemia Ureteral mass Pyelonephritis of right kidney Right flank pain Dizziness Dyspnea on exertion Other mechanical complication of indwelling ureteral stent, initial encounter Acute UTI Anemia Surgical History Surgical History History of ankle surgery right, ORIF with hardware Hx of appendectomy Social History Social History (Updated 11/05/24 @ 13:15 by Jamil Godfrey, RN, BSN) Smoking Status: Former smoker If you are a former smoker, when did you quit? (Date/Year): 10 Number of Years Smoked: 40 How many cigarettes a day do you smoke? (20 cigarettes=1 Pk): 20 Second hand tobacco smoke exposure: No Do you dip or chew tobacco?: No Do you vape?: No Patient requests smoking cessation consult: No Initiate information on smoking cessation: No Living arrangement: At home Marital Status: Single Living Condition: With friend(s) Relationship: Level: Independent Do you feel safe in your home environment?: Yes Suffered physical, verbal, emotional, or financial abuse?: No History of Abuse: No ETOH Use: None Frequency: Occasional Substance Use: denies use POLST Patient has POLST: No POLST Status: Full Code Anesthesia Exam (Expanded) Exam General: Alert, Oriented x3 and Cooperative Dental: Dentures full Upper and Dentures full Lower Mouth Openin Fingerbreadth Neck Mobility: Normal Mallampati classification: III Thyromental Distance: 4-6 cm Exam Exam Vital Signs: Vital Signs x48h Temp Pulse Resp BP Pulse Ox 11/06/24 07:23 36.4 C L 74 18 96/55 L 96 Plan Plan Anesthesia Type: General Consent for Procedure(s) Verified and Reviewed: Yes Code Status: Attempt Resuscitation ASA Classification ASA classification: 4-Incapacitating disease Is this case an emergency?: Yes
--- NOTE | 2024-11-06 08:22 | PROVIDER PROGRESS NOTE ---
Subjective Prog Note Date Prog Note Date: 11/06/24 Prog Note Time: 08:18 Subjective Pt reports feeling: Improved Subjective: Feels better Current Medications Current Medications Current Medications: Current Medications Generic Name Dose Route Start Last Admin Trade Name Freq PRN Reason Stop Dose Admin Acetaminophen 650 mg 11/05/24 17:16 Acetaminophen 325 Mg Tablet PO Q4HR PRN Pain 1 to 4, or Fever Enoxaparin Sodium 40 mg 11/06/24 09:00 Enoxaparin 40 Mg/0.4 Ml Syringe SUBQ DAILY LESLIE Hydromorphone HCl 0.5 mg 11/05/24 18:20 11/06/24 07:24 Hydromorphone 0.5 Mg/0.5 Ml Syringe IVP 0.5 mg Q2H PRN Administration Severe Pain (Level 7-10) Sodium Chloride 1,000 mls @ 100 mls/hr 11/05/24 17:16 11/06/24 04:45 Normal Saline 0.9% IV 25 mls/hr .Q10H LESLIE Administration Ondansetron HCl 4 mg 11/05/24 17:16 Ondansetron Odt 4 Mg Tablet TL Q6HR PRN Nausea / Vomiting Ondansetron HCl 4 mg 11/05/24 17:16 Ondansetron 4 Mg/2 Ml Vial IVP Q6HR PRN Nausea / Vomiting Sodium Chloride 10 ml 11/05/24 17:16 Sodium Chloride Flush 0.9% 10 Ml Syringe IVP PRN PRN NEEDED PER PROVIDER ORDERS Sodium Chloride 10 ml 11/05/24 17:16 11/06/24 01:53 Sodium Chloride Flush 0.9% 10 Ml Syringe IVP 10 ml 0100,0900,1700 LESLIE Administration Objective Vital Signs/Intake & Output Reviewed Vital Signs: Yes Vital Signs: Vital Signs x48h Temp Pulse Resp BP Pulse Ox 11/06/24 07:23 36.4 C L 74 18 96/55 L 96 Intake & Output: Intake & Output 11/03/24 11/04/24 11/05/24 11/06/24 23:59 23:59 23:59 23:59 Intake Total 2831 / 2831 1000 / 1000 Balance 2831 / 2831 1000 / 1000 Weight (kg) 47.5 kg Objective General Appearance: positive No acute distress (RRR CTA b/l) Lab Results 11/06/24 04:55 11/06/24 04:55 Other Labs: Lab Results x24hrs 11/06/24 11/06/24 11/06/24 Range/Units 04:55 04:55 04:55 WBC 13.9 H (4.8-10.8) x10^3/uL RBC 3.32 L (4.20-5.40) 10^6/uL Hgb 8.8 L (12.0-16.0) g/dL Hct 29.6 L (37.0-47.0) % MCV 89.2 (81.0-99.0) fL MCH 26.5 L (27.0-31.0) pg MCHC 29.7 L (32.0-36.0) g/dL RDW 21.7 H (12.0-15.0) % Plt Count 492 H (130-450) 10^3/uL MPV 9.2 (7.9-10.8) fL Neut # (Auto) 11.7 H (1.5-6.6) 10^3/uL Lymph # (Auto) 0.9 L (1.5-3.5) 10^3/uL [place] # (Auto) 0.8 (0.0-1.0) 10^3/uL Eos # (Auto) 0.2 (0.0-0.7) 10^3/uL Baso # (Auto) 0.1 (0.0-0.1) 10^3/uL Absolute Nucleated RBC 0.00 x10^3/uL Nucleated RBC % 0.0 /100WBC Manual Slide Review Indicated Platelet Estimate INCREASED (>450,000) (NORMAL) Platelet Morphology NORMAL APPEARANCE (NORMAL) RBC Morph Micro Appear 1+ OVALOCYTES 2+ HYPOCHROMASIA 1+ ANISOCYTOSIS (NORMAL) Sodium 131 L (135-145) mmol/L Potassium 4.3 (3.5-4.5) mmol/L Chloride 103 (101-111) mmol/L Carbon Dioxide 22 (21-32) mmol/L Anion Gap 6.0 (6-13) BUN 14 (6-20) mg/dL Creatinine 0.5 L (0.6-1.3) mg/dL Estimated GFR (MDRD) 122 (>89) Glucose 101 (74-104) mg/dL Lactic Acid (0.5-2.2) mmol/L Calcium 9.0 (8.5-10.3) mg/dL Total Bilirubin (0.2-1.0) mg/dL AST (10-42) IU/L ALT (10-60) IU/L Alkaline Phosphatase (42-121) IU/L Total Protein (6.4-8.9) g/dL Albumin (3.2-5.5) g/dL Globulin (2.1-4.2) g/dL Albumin/Globulin Ratio (1.0-2.2) Lipase (11-82) U/L Urine Color Urine Clarity (CLEAR) Urine pH (5.0-7.5) PH Ur Specific [place] (1.002-1.030) Urine Protein (NEGATIVE) mg/dL Urine Glucose (UA) (NEGATIVE) mg/dL Urine Ketones (NEGATIVE) mg/dL Urine Occult Blood (NEGATIVE) Urine Nitrite (NEGATIVE) Urine Bilirubin (NEGATIVE) Urine Urobilinogen (NORMAL) E.U./dL Ur Leukocyte Esterase (NEGATIVE) Urine RBC (0-5) /HPF Urine WBC (0-5) /HPF Ur Squamous Epith Cells (<= Few) Urine Bacteria (None Seen) /HPF Ur Microscopic Review Urine Culture Comments 11/05/24 11/05/24 11/05/24 Range/Units 15:22 13:07 12:00 WBC 20.1 H (4.8-10.8) x10^3/uL RBC 4.26 (4.20-5.40) 10^6/uL Hgb 11.1 L (12.0-16.0) g/dL Hct 37.3 (37.0-47.0) % MCV 87.6 (81.0-99.0) fL MCH 26.1 L (27.0-31.0) pg MCHC 29.8 L (32.0-36.0) g/dL RDW 21.3 H (12.0-15.0) % Plt Count 585 H (130-450) 10^3/uL MPV 9.0 (7.9-10.8) fL Neut # (Auto) 18.0 H (1.5-6.6) 10^3/uL Lymph # (Auto) 0.9 L (1.5-3.5) 10^3/uL [place] # (Auto) 0.8 (0.0-1.0) 10^3/uL Eos # (Auto) 0.1 (0.0-0.7) 10^3/uL Baso # (Auto) 0.1 (0.0-0.1) 10^3/uL Absolute Nucleated RBC 0.00 x10^3/uL Nucleated RBC % 0.0 /100WBC Manual Slide Review Indicated Platelet Estimate (NORMAL) Platelet Morphology (NORMAL) RBC Morph Micro Appear 4+ ANISOCYTOSIS (NORMAL) Sodium 130 L (135-145) mmol/L Potassium 3.8 (3.5-4.5) mmol/L Chloride 94 L (101-111) mmol/L Carbon Dioxide 26 (21-32) mmol/L Anion Gap 10.0 (6-13) BUN 22 H (6-20) mg/dL Creatinine 0.7 (0.6-1.3) mg/dL Estimated GFR (MDRD) 83 L (>89) Glucose 133 H (74-104) mg/dL Lactic Acid 2.2 5.1 H* (0.5-2.2) mmol/L Calcium 10.9 H (8.5-10.3) mg/dL Total Bilirubin 0.5 (0.2-1.0) mg/dL AST 22 (10-42) IU/L ALT 19 (10-60) IU/L Alkaline Phosphatase 224 H (42-121) IU/L Total Protein 7.6 (6.4-8.9) g/dL Albumin 3.0 L (3.2-5.5) g/dL Globulin 4.6 H (2.1-4.2) g/dL Albumin/Globulin Ratio 0.7 L (1.0-2.2) Lipase 22 (11-82) U/L Urine Color DARK YELLOW Urine Clarity TURBID (CLEAR) Urine pH 6.0 (5.0-7.5) PH Ur Specific [place] >=1.030 H (1.002-1.030) Urine Protein >=300 H (NEGATIVE) mg/dL Urine Glucose (UA) NEGATIVE (NEGATIVE) mg/dL Urine Ketones NEGATIVE (NEGATIVE) mg/dL Urine Occult Blood LARGE H (NEGATIVE) Urine Nitrite POSITIVE H (NEGATIVE) Urine Bilirubin NEGATIVE (NEGATIVE) Urine Urobilinogen 0.2 (NORMAL) (NORMAL) E.U./dL Ur Leukocyte Esterase MODERATE H (NEGATIVE) Urine RBC 6-10 H (0-5) /HPF Urine WBC >25 H (0-5) /HPF Ur Squamous Epith Cells MANY Squamous H (<= Few) Urine Bacteria Moderate H (None Seen) /HPF Ur Microscopic Review INDICATED Urine Culture Comments NOT INDICATED ABX Reporting Has patient been on IV antibiotics over the past 48 hours?: Yes Assessment/Plan Problem List (1) Hydronephrosis, right: Impression: 69-year-old woman with 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 Will attempt tandem stent. The risk, benefits, terms were discussed. Specific risks of infection, bleeding, injury to adjacent structures, need for additional procedures, failure of therapy were discussed -Follow urine cultures and blood cultures -She was consented and marked today. She freely consents I think she has a very guarded prognosis. I suspect and with aggressive treatment she perhaps has a few weeks to maybe a few months to live
[2024-11-06] MEDS: ENOXAPARIN 40 MG/0.4 ML SYRINGE SUBQ SCH (08:57)
--- NOTE | 2024-11-06 10:00 | PROVIDER PROGRESS NOTE ---
<Statement entered by Mayito Hickman DNP - 11/06/24 18:37> Patient was seen and examined by me with a separate encounter after being seen by Mrs. Stanton. I reviewed the G[employer]ING [employer]PARTMENT HEAD's documentation including patient history, physical examination, laboratory, imaging, clinical assessment and treatment plan. I have discussed the management of the patient with the [employer]PART[employer], and with the patient. There are no changes. Briefly, urosepsis complicated by malignant disease compressing right ureter. Went to OR today for stent placement. Discussed plan of care with urology, palliative care, hospice. Continue IVF, ABX Subjective Prog Note Date Prog Note Date: 11/06/24 Prog Note Time: 09:24 Subjective Pt reports feeling: Improved Subjective: Pt. 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 Cancer is non-biopsy proven. She had consult w/ oncology but did not move forward w/ recommendations. She reports pain is much improved w/ pain meds. Of note is that the patient does not seem to accept/understand the severity of her disease despite multiple providers reviewing results with her. "I don't think I have cancer, I'll find out more today". Current Medications Current Medications Current Medications: Current Medications Generic Name Dose Route Start Last Admin Trade Name Freq PRN Reason Stop Dose Admin Acetaminophen 650 mg 11/05/24 17:16 Acetaminophen 325 Mg Tablet PO Q4HR PRN Pain 1 to 4, or Fever Ceftriaxone Sodium 1 gm 11/06/24 10:00 Ceftriaxone 1 Gm Vial IVP DAILY LESLIE Enoxaparin Sodium 40 mg 11/06/24 09:00 11/06/24 08:57 Enoxaparin 40 Mg/0.4 Ml Syringe SUBQ Not Given DAILY LESLIE Hydromorphone HCl 0.5 mg 11/05/24 18:20 11/06/24 07:24 Hydromorphone 0.5 Mg/0.5 Ml Syringe IVP 0.5 mg Q2H PRN Administration Severe Pain (Level 7-10) Sodium Chloride 1,000 mls @ 100 mls/hr 11/05/24 17:16 11/06/24 04:45 Normal Saline 0.9% IV 25 mls/hr .Q10H LESLIE Administration Ondansetron HCl 4 mg 11/05/24 17:16 Ondansetron Odt 4 Mg Tablet TL Q6HR PRN Nausea / Vomiting Ondansetron HCl 4 mg 11/05/24 17:16 Ondansetron 4 Mg/2 Ml Vial IVP Q6HR PRN Nausea / Vomiting Sodium Chloride 10 ml 11/05/24 17:16 Sodium Chloride Flush 0.9% 10 Ml Syringe IVP PRN PRN NEEDED PER PROVIDER ORDERS Sodium Chloride 10 ml 11/05/24 17:16 11/06/24 08:57 Sodium Chloride Flush 0.9% 10 Ml Syringe IVP Not Given 0100,0900,1700 LESLIE Objective Vital Signs/Intake & Output Vital Signs: Vital Signs x48h Temp Pulse Resp BP Pulse Ox 11/06/24 07:23 36.4 C L 74 18 96/55 L 96 Intake & Output: Intake & Output 11/03/24 11/04/24 11/05/24 11/06/24 23:59 23:59 23:59 23:59 Intake Total 2831 / 2831 1000 / 1000 Balance 2831 / 2831 1000 / 1000 Weight (kg) 47.5 kg Objective General Appearance: positive No acute distress and Alert Eyes Bilateral: positive No scleral icterus Neck: positive No JVD Respiratory: positive No respiratory distress and Breath sounds nml Cardiovascular: positive Regular rate & rhythm Abdomen: positive Non-tender Skin: positive Warm Lab Results 11/06/24 04:55 11/06/24 04:55 Other Labs: Lab Results x24hrs 11/06/24 11/06/24 11/06/24 Range/Units 04:55 04:55 04:55 WBC 13.9 H (4.8-10.8) x10^3/uL RBC 3.32 L (4.20-5.40) 10^6/uL Hgb 8.8 L (12.0-16.0) g/dL Hct 29.6 L (37.0-47.0) % MCV 89.2 (81.0-99.0) fL MCH 26.5 L (27.0-31.0) pg MCHC 29.7 L (32.0-36.0) g/dL RDW 21.7 H (12.0-15.0) % Plt Count 492 H (130-450) 10^3/uL MPV 9.2 (7.9-10.8) fL Neut # (Auto) 11.7 H (1.5-6.6) 10^3/uL Lymph # (Auto) 0.9 L (1.5-3.5) 10^3/uL [place] # (Auto) 0.8 (0.0-1.0) 10^3/uL Eos # (Auto) 0.2 (0.0-0.7) 10^3/uL Baso # (Auto) 0.1 (0.0-0.1) 10^3/uL Absolute Nucleated RBC 0.00 x10^3/uL Nucleated RBC % 0.0 /100WBC Manual Slide Review Indicated Platelet Estimate INCREASED (>450,000) (NORMAL) Platelet Morphology NORMAL APPEARANCE (NORMAL) RBC Morph Micro Appear 1+ OVALOCYTES 2+ HYPOCHROMASIA 1+ ANISOCYTOSIS (NORMAL) Sodium 131 L (135-145) mmol/L Potassium 4.3 (3.5-4.5) mmol/L Chloride 103 (101-111) mmol/L Carbon Dioxide 22 (21-32) mmol/L Anion Gap 6.0 (6-13) BUN 14 (6-20) mg/dL Creatinine 0.5 L (0.6-1.3) mg/dL Estimated GFR (MDRD) 122 (>89) Glucose 101 (74-104) mg/dL Lactic Acid (0.5-2.2) mmol/L Calcium 9.0 (8.5-10.3) mg/dL Total Bilirubin (0.2-1.0) mg/dL AST (10-42) IU/L ALT (10-60) IU/L Alkaline Phosphatase (42-121) IU/L Total Protein (6.4-8.9) g/dL Albumin (3.2-5.5) g/dL Globulin (2.1-4.2) g/dL Albumin/Globulin Ratio (1.0-2.2) Lipase (11-82) U/L Urine Color Urine Clarity (CLEAR) Urine pH (5.0-7.5) PH Ur Specific [place] (1.002-1.030) Urine Protein (NEGATIVE) mg/dL Urine Glucose (UA) (NEGATIVE) mg/dL Urine Ketones (NEGATIVE) mg/dL Urine Occult Blood (NEGATIVE) Urine Nitrite (NEGATIVE) Urine Bilirubin (NEGATIVE) Urine Urobilinogen (NORMAL) E.U./dL Ur Leukocyte Esterase (NEGATIVE) Urine RBC (0-5) /HPF Urine WBC (0-5) /HPF Ur Squamous Epith Cells (<= Few) Urine Bacteria (None Seen) /HPF Ur Microscopic Review Urine Culture Comments 11/05/24 11/05/24 11/05/24 Range/Units 15:22 13:07 12:00 WBC 20.1 H (4.8-10.8) x10^3/uL RBC 4.26 (4.20-5.40) 10^6/uL Hgb 11.1 L (12.0-16.0) g/dL Hct 37.3 (37.0-47.0) % MCV 87.6 (81.0-99.0) fL MCH 26.1 L (27.0-31.0) pg MCHC 29.8 L (32.0-36.0) g/dL RDW 21.3 H (12.0-15.0) % Plt Count 585 H (130-450) 10^3/uL MPV 9.0 (7.9-10.8) fL Neut # (Auto) 18.0 H (1.5-6.6) 10^3/uL Lymph # (Auto) 0.9 L (1.5-3.5) 10^3/uL [place] # (Auto) 0.8 (0.0-1.0) 10^3/uL Eos # (Auto) 0.1 (0.0-0.7) 10^3/uL Baso # (Auto) 0.1 (0.0-0.1) 10^3/uL Absolute Nucleated RBC 0.00 x10^3/uL Nucleated RBC % 0.0 /100WBC Manual Slide Review Indicated Platelet Estimate (NORMAL) Platelet Morphology (NORMAL) RBC Morph Micro Appear 4+ ANISOCYTOSIS (NORMAL) Sodium 130 L (135-145) mmol/L Potassium 3.8 (3.5-4.5) mmol/L Chloride 94 L (101-111) mmol/L Carbon Dioxide 26 (21-32) mmol/L Anion Gap 10.0 (6-13) BUN 22 H (6-20) mg/dL Creatinine 0.7 (0.6-1.3) mg/dL Estimated GFR (MDRD) 83 L (>89) Glucose 133 H (74-104) mg/dL Lactic Acid 2.2 5.1 H* (0.5-2.2) mmol/L Calcium 10.9 H (8.5-10.3) mg/dL Total Bilirubin 0.5 (0.2-1.0) mg/dL AST 22 (10-42) IU/L ALT 19 (10-60) IU/L Alkaline Phosphatase 224 H (42-121) IU/L Total Protein 7.6 (6.4-8.9) g/dL Albumin 3.0 L (3.2-5.5) g/dL Globulin 4.6 H (2.1-4.2) g/dL Albumin/Globulin Ratio 0.7 L (1.0-2.2) Lipase 22 (11-82) U/L Urine Color DARK YELLOW Urine Clarity TURBID (CLEAR) Urine pH 6.0 (5.0-7.5) PH Ur Specific [place] >=1.030 H (1.002-1.030) Urine Protein >=300 H (NEGATIVE) mg/dL Urine Glucose (UA) NEGATIVE (NEGATIVE) mg/dL Urine Ketones NEGATIVE (NEGATIVE) mg/dL Urine Occult Blood LARGE H (NEGATIVE) Urine Nitrite POSITIVE H (NEGATIVE) Urine Bilirubin NEGATIVE (NEGATIVE) Urine Urobilinogen 0.2 (NORMAL) (NORMAL) E.U./dL Ur Leukocyte Esterase MODERATE H (NEGATIVE) Urine RBC 6-10 H (0-5) /HPF Urine WBC >25 H (0-5) /HPF Ur Squamous Epith Cells MANY Squamous H (<= Few) Urine Bacteria Moderate H (None Seen) /HPF Ur Microscopic Review INDICATED Urine Culture Comments NOT INDICATED Diagnostic Imaging Diagnostic Imaging Results: positive Final report reviewed Other Results/Comments Other Results/Comments: UA did not qualify for C&S ABX Reporting Has patient been on IV antibiotics over the past 48 hours?: Yes Sepsis Event Note (H) Evaluation Current Stage of Sepsis: Resolved Confirmed Source and Organism (if known) of Sepsis: Actively treating Assessment/Plan Problem List (1) Sepsis: Impression: Improved BP 96/55 and heart rate 74 . WBC: 13.9, down from 20.1. Fluids continuous. Rocephin ordered for today for 5-7 day course Urine culture contaminated. (2) Hydronephrosis, right: Impression: Abdominal pain is improved from yesterday. 0/10 pain on visit. Urology visited Pt. Stent placement, ureteral, planned for 1200 IV fluids, abx as in problem 1. (3) 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: Impression: When asked about her cancer she reports, "I don't think I have cancer". She believes her procedure today will give her more information. No awareness of disease severity. She looks forward to going home to her dog. Hospice spoke with daughter, family meeting to consult w/ Hospice scheduled for 1600.
[2024-11-06] MEDS ORDERED: LIDOCAINE 2% URO-JET 5 ML SYRINGE UR ONE (10:32)
[2024-11-06] MEDS ORDERED: iohexoL-240 20 ML VIAL IVP ONE (10:32)
--- NOTE | 2024-11-06 11:31 | PHARMACY PROGRESS NOTE ---
Best Possible Medication History Admit Date and Time: 11/05/24 1657 Home Medications Medication Instructions Recorded Confirmed Type pantoprazole 40 mg tablet,delayed 40 mg PO DAILY 11/0611/06/24 History release Processed by: Pharmacy Medications reviewed in ED?: No Medication History completed: Yes Patient Interview: Completed Secondary Source(s): Pharmacy records and Insurance records [facility] Statement: As the person ultimately responsible for medication therapy, providers are able to order a medication from an existing home medication list in [facility] via the "Reconcile Routine" prior to Confirmation of that medication by support services coordinator. Such practice is discouraged except when the physician, in their clinical judgment, deems that a medical need exists for a medication without regard to previous use.
[2024-11-06] MEDS ORDERED: LIDOCAINE-PF 2% 10 ML AMP SUBQ ONE (12:02)
[2024-11-06] MEDS ORDERED: fentaNYL 100 MCG/2 ML VIAL ONE (12:02)
[2024-11-06] MEDS ORDERED: ROCURONIUM 50 MG/5 ML VIAL ONE (12:02)
[2024-11-06] MEDS ORDERED: PROPOFOL 200 MG/20 ML VIAL IVP ONE (12:02)
[2024-11-06] MEDS ORDERED: PHENYLEPHRINE HCL 0.5 MG/5 ML AMPULE ONE (12:28)
[2024-11-06] MEDS ORDERED: ePHEDrine 50 MG/ML VIAL IVP ONE (12:31)
[2024-11-06] MEDS ORDERED: LACTATED RINGERS 1,000 ML IV PRN (12:37)
[2024-11-06] MEDS ORDERED: SUGAMMADEX 200 MG/2 ML VIAL IVP ONE (12:41)
--- NOTE | 2024-11-06 12:59 | OPERATIVE REPORT ---
Operative Report General Admit Date: 11/05/24 Procedure Data: Operation Date: 11/06/24 12:00 Proposed Procedures p Cystoscopy with Ureteral Stent Exchange(Right) - Josh Tinoco MD Actual Procedures p Cystoscopy with Ureteral Stent Exchange(Right), retrograde pyelogram, complex procedure with extra time - Josh Tinoco MD Pre-Op Diagnosis: RIGHT URETERAL OBSTRUCTION, SEPSIS Anesthesia Type General Case Staff Anesthesia Provider: Chavez Stevenson Times Into Recovery: 11/06/24 12:53 Procedure Start: 11/06/24 12:25 Time out: 11/06/24 12:24 Pre-Op Diagnosis: right ureteral obstruction Post Op Diagnosis: same Procedure Note Estimated Blood Loss (ml): 0 Pathology: right kidney urine Findings: massive posterior bladder wall mass with mass effect large mass eminating from right UO stent changed with difficulty 50cc of purulent urine removed from right kidney poor drainage of stent Complications: none Other Other Information/Narrative: After informed consent was obtained the patient was brought to the OR and laid in the supine position. The patient was anesthetized per anesthesia protocols and prepped and draped in usual sterile fashion In the dorsolithotomy [facility] ion. A formal timeout was performed reconfirming the patient, procedure and laterality. A 22 Italian cystoscope was advanced easily into urinary bladder. She was noted to have a large mass emanating from the right ureteral orifice almost like a hotdog with a stent through the middle. The stent was severely encrusted. Her bladder volume was very small and she had a significantly large mass effect posteriorly. This made difficult to maneuver. We attempted to use a flexible cystoscope to get a better angle on the course of the ureteral stents but this was not effective. We then returned to using the rigid cystoscope and grasped the end of the stent. A sensor wire was placed through the stent up into the kidney. A 5 Italian open-ended ureteral catheter was advanced over the wire into the kidney. We then evacuated out about 50 cc of opaque purulent fluid consistent with significant infection. The first 20 cc or so were sent for urine culture A gentle retrograde pyelogram was performed confirming the placement in a severely hydronephrotic renal system. Under direct visualization placed a 6 Italian 26 cm stent with good curling noted in the kidney and good curling noted in the bladder. It did not appear to be draining very well though we could see some purulent drainage coming out of the stent sideholes. This was a significantly complex procedure and took 3 times longer than the average procedure for stent exchange The bladder was emptied and Uro-Jet was placed This concluded procedure the patient tolerated the procedure well. She will be brought to the PACU. She will return to the floor and then consider hospice care
[2024-11-06] MEDS ORDERED: MORPHINE 2 MG/ML CARPUJECT IVP PRN (13:01)
[2024-11-06] MEDS ORDERED: NALOXONE 0.4 MG/ML VIAL IVP PRN (13:01)
[2024-11-06] MEDS ORDERED: ATROPINE ABBOJECT 1 MG/10 ML SYRINGE IVP PRN (13:01)
[2024-11-06] MEDS ORDERED: ONDANSETRON 4 MG/2 ML VIAL IVP PRN (13:01)
[2024-11-06] MEDS ORDERED: fentaNYL 100 MCG/2 ML VIAL IVP PRN (13:01)
[2024-11-06] MEDS ORDERED: METOCLOPRAMIDE 10 MG/2 ML VIAL IVP PRN (13:01)
[2024-11-06] MEDS ORDERED: ePHEDrine 50 MG/ML VIAL IVP PRN (13:01)
[2024-11-06] MEDS ORDERED: HYDROmorphone 0.5 MG/0.5 ML SYRINGE IVP PRN (13:01)
[2024-11-06] MEDS ORDERED: LACTATED RINGERS 1,000 ML IV SCH (14:00)
[2024-11-06] MEDS: cefTRIAXone 1 GM VIAL IVP SCH (14:04)
[2024-11-06] MEDS: SODIUM CHLORIDE FLUSH 0.9% 10 ML SYRINGE IVP PRN (20:17)
--- NOTE | 2024-11-06 21:12 | XRAY Report ---
PROCEDURE: FL OR C-Arm Procedure INDICATIONS: Surgical Procedure FLUORO TIME: 0.2 MIN TECHNIQUE: 4 intraoperative fluoroscopic images of right abdomen were obtained. COMPARISON: CT of abdomen and pelvis dated 11/05/2024 and 10/18/2024. FINDINGS: Intraoperative fluoroscopic images shows contrast opacification of dilated right renal collecting system. There is placement of the right-sided ureteral stent. IMPRESSION: Fluoroscopy guidance was provided intraoperatively for right-sided ureteral stent placement performed by ordering physician. Reviewed by: Avi Doshi MD on 11/06/2024 9:11 PM PDT Approved by: Avi Doshi MD on 11/06/2024 9:11 PM PDT Station ID: [id number]
--- NOTE | 2024-11-07 07:06 | ANESTHESIA POST OP EVALUATION ---
Anesthesia Post Eval Post Anesthesia Eval Vitals: Last Vital Signs Temp 36.6 C 11/06/24 23:44 Pulse 79 11/06/24 23:44 Resp 16 11/06/24 23:44 BP 104/70 11/06/24 23:44 Pulse Ox 98 11/06/24 23:44 CV Function Including HR & BP: Stable Pain Control: Satisfactory Nausea & Vomiting: Negative Mental Status: Baseline Respiratory Status: Airway Patent Hydration Status: Satisfactory Anesthesia Complications: None
--- NOTE | 2024-11-07 07:17 | PROVIDER PROGRESS NOTE ---
Subjective Prog Note Date Prog Note Date: 11/07/24 Prog Note Time: 07:15 Subjective Pt reports feeling: Improved Subjective: Patient feels well. Much improved from prior to stent placement She has been feeling hot flash like symptoms which she states she has never had before Current Medications Current Medications Current Medications: Current Medications Generic Name Dose Route Start Last Admin Trade Name Freq PRN Reason Stop Dose Admin Acetaminophen 650 mg 11/05/24 17:16 Acetaminophen 325 Mg Tablet PO Q4HR PRN Pain 1 to 4, or Fever Ceftriaxone Sodium 1 gm 11/06/24 10:00 11/06/24 14:04 Ceftriaxone 1 Gm Vial IVP 1 gm DAILY LESLIE Administration Enoxaparin Sodium 40 mg 11/06/24 09:00 11/06/24 08:57 Enoxaparin 40 Mg/0.4 Ml Syringe SUBQ Not Given DAILY LESLIE Hydromorphone HCl 0.5 mg 11/05/24 18:20 11/07/24 05:40 Hydromorphone 0.5 Mg/0.5 Ml Syringe IVP 0.5 mg Q2H PRN Administration Severe Pain (Level 7-10) Sodium Chloride 1,000 mls @ 100 mls/hr 11/05/24 17:16 11/06/24 22:35 Normal Saline 0.9% IV 100 mls/hr .Q10H LESLIE Administration Lactated Ringer's 1,000 mls @ 0 mls/hr 11/06/24 12:37 Lr IV .Q0M PRN preop TKO Ondansetron HCl 4 mg 11/05/24 17:16 Ondansetron Odt 4 Mg Tablet TL Q6HR PRN Nausea / Vomiting Ondansetron HCl 4 mg 11/05/24 17:16 Ondansetron 4 Mg/2 Ml Vial IVP Q6HR PRN Nausea / Vomiting Sodium Chloride 10 ml 11/05/24 17:16 11/06/24 20:17 Sodium Chloride Flush 0.9% 10 Ml Syringe IVP 10 ml PRN PRN Administration NEEDED PER PROVIDER ORDERS Sodium Chloride 10 ml 11/05/24 17:16 11/07/24 02:00 Sodium Chloride Flush 0.9% 10 Ml Syringe IVP 10 ml 0100,0900,1700 LESLIE Administration Objective Vital Signs/Intake & Output Reviewed Vital Signs: Yes Vital Signs: Vital Signs x48h Temp Pulse Resp BP Pulse Ox 11/06/24 23:44 36.6 C 79 16 104/70 98 Intake & Output: Intake & Output 11/04/24 11/05/24 11/06/24 11/07/24 23:59 23:59 23:59 23:59 Intake Total 2831 / 2831 1670 / 1670 Balance 2831 / 2831 1670 / 1670 Weight (kg) 47.5 kg Objective General Appearance: positive No acute distress (thin, lying in bed) Lab Results 11/06/24 04:55 11/06/24 04:55 ABX Reporting Has patient been on IV antibiotics over the past 48 hours?: Yes Sepsis Event Note (H) Evaluation Current Stage of Sepsis: Resolved Assessment/Plan Problem List (1) Sepsis: Impression: Urine culture and blood cultures both negative. I did send a dedicated culture from her right kidney intraoperatively but this may become sterile given she was on antibiotics at the time. I recommend treatment for 14 days with antibiotics that would have treated her prior infection. In this case I would recommend 14 days of levofloxacin or ciprofloxacin. Qualifiers: Sepsis type: sepsis due to unspecified organism Sepsis acute organ dysfunction status: without acute organ dysfunction Qualified Code(s): A41.9 - Sepsis, unspecified organism (2) Hydronephrosis, right: Impression: Right ureteral stent exchanged October 2024, likely of poor function -Based on her goals of care I would recommend not pursuing any further management of the stent. However if she does decompensates she may need a nephrostomy tube. 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 Given the aggressive nature of this disease and its rapid growth and her poor protoplasm, I strongly suspect that even with aggressive treatment she will only have a few weeks to live perhaps a month or 2. I think that the treatment for this would be far too toxic for her and would significantly decrease her quality of life. I would strongly recommend against medical oncology management at this point. I would strongly recommend hospice and palliative care I discussed this in depth with her. I remain available for anything I can help her with Urology signing off at this point
[2024-11-07 09:31] LABS: HCT - HEMATOCRIT 30.8 % (37.0-47.0); HGB - HEMOGLOBIN 9.2 g/dL (12.0-16.0); MEAN CORPUSCULAR HEMOGLOBIN 26.6 pg (27.0-31.0); MEAN CORPUSCULAR HGB CONC 29.9 g/dL (32.0-36.0); MEAN PLATELET VOLUME 9.6 fL (7.9-10.8); RED BLOOD COUNT 3.46 10^6/uL (4.20-5.40); RED CELL DISTRIBUTION WIDTH 21.9 % (12.0-15.0); WHITE BLOOD COUNT 15.4 x10^3/uL (4.8-10.8)
[2024-11-07 09:49] LABS: CALCIUM 10.1 mg/dL (8.5-10.3); CREATININE 0.5 mg/dL (0.6-1.3); POTASSIUM 3.6 mmol/L (3.5-4.5)
--- NOTE | 2024-11-07 12:26 | PROVIDER PROGRESS NOTE ---
Subjective Prog Note Date Prog Note Date: 11/07/24 Subjective Pt reports feeling: Improved Current Medications Current Medications Current Medications: Current Medications Generic Name Dose Route Start Last Admin Trade Name Freq PRN Reason Stop Dose Admin Acetaminophen 650 mg 11/05/24 17:16 Acetaminophen 325 Mg Tablet PO Q4HR PRN Pain 1 to 4, or Fever Ciprofloxacin 500 mg 11/07/24 21:00 Ciprofloxacin 250 Mg Tablet PO BID LESLIE Enoxaparin Sodium 40 mg 11/06/24 09:00 11/07/24 08:59 Enoxaparin 40 Mg/0.4 Ml Syringe SUBQ 40 mg DAILY LESLIE Administration Hydromorphone HCl 0.5 mg 11/05/24 18:20 11/07/24 11:11 Hydromorphone 0.5 Mg/0.5 Ml Syringe IVP 0.5 mg Q2H PRN Administration Severe Pain (Level 7-10) Ondansetron HCl 4 mg 11/05/24 17:16 Ondansetron Odt 4 Mg Tablet TL Q6HR PRN Nausea / Vomiting Ondansetron HCl 4 mg 11/05/24 17:16 Ondansetron 4 Mg/2 Ml Vial IVP Q6HR PRN Nausea / Vomiting Sodium Chloride 10 ml 11/05/24 17:16 11/06/24 20:17 Sodium Chloride Flush 0.9% 10 Ml Syringe IVP 10 ml PRN PRN Administration NEEDED PER PROVIDER ORDERS Sodium Chloride 10 ml 11/05/24 17:16 11/07/24 08:59 Sodium Chloride Flush 0.9% 10 Ml Syringe IVP Not Given 0100,0900,1700 [facility] Objective Vital Signs/Intake & Output Reviewed Vital Signs: Yes Vital Signs: Vital Signs x48h Temp Pulse Resp BP Pulse Ox 11/07/24 07:24 36.4 C L 66 16 134/71 H 96 Intake & Output: Intake & Output 11/04/24 11/05/24 11/06/24 11/07/24 23:59 23:59 23:59 23:59 Intake Total 2831 / 2831 1670 / 1670 1100 / 1100 Balance 2831 / 2831 1670 / 1670 1100 / 1100 Weight (kg) 47.5 kg Objective General Appearance: positive No acute distress (thin, lying in bed) Eyes Bilateral: positive Normal inspection and PERRL ENT: positive ENT inspection nml Neck: positive Nml inspection Respiratory: positive Chest non-tender Cardiovascular: positive Regular rate & rhythm Abdomen: positive Non-tender Skin: positive Color nml Extremities: positive Non-tender Neurologic/Psychiatric: positive Oriented x3 Lab Results 11/07/24 09:26 11/07/24 09:26 Other Labs: Lab Results x24hrs 11/07/24 Range/Units 09:26 WBC 15.4 H (4.8-10.8) x10^3/uL RBC 3.46 L (4.20-5.40) 10^6/uL Hgb 9.2 L (12.0-16.0) g/dL Hct 30.8 L (37.0-47.0) % MCV 89.0 (81.0-99.0) fL MCH 26.6 L (27.0-31.0) pg MCHC 29.9 L (32.0-36.0) g/dL RDW 21.9 H (12.0-15.0) % Plt Count 446 (130-450) 10^3/uL MPV 9.6 (7.9-10.8) fL Sodium 134 L (135-145) mmol/L Potassium 3.6 (3.5-4.5) mmol/L Chloride 100 L (101-111) mmol/L Carbon Dioxide 27 (21-32) mmol/L Anion Gap 7.0 (6-13) BUN 9 (6-20) mg/dL Creatinine 0.5 L (0.6-1.3) mg/dL Estimated GFR (MDRD) 122 (>89) Glucose 171 H (74-104) mg/dL Calcium 10.1 (8.5-10.3) mg/dL Sepsis Event Note (H) Evaluation Current Stage of Sepsis: Resolved Assessment/Plan Problem List (1) Sepsis: Impression: WBC 15.4 today, likely due to procedure yesterday Changing antibiotics to ciprofloxacin given prior cultures Per urology, cleared for discharge, will need 14-day course of antibiotics All cultures no growth to date VSS Qualifiers: Sepsis type: sepsis due to unspecified organism Sepsis acute organ dysfunction status: without acute organ dysfunction Qualified Code(s): A41.9 - Sepsis, unspecified organism (2) Hydronephrosis, right: Impression: Underwent cystoscopy with ureteral stent exchange yesterday Urology with concern about long-term efficacy of the stent given her cancer If she continues to have issues with hydronephrosis, the next step is Nephrostomy (3) 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: Impression: Widely metastatic cancer, doubtful she has a month to live Hospice following, working on placement
[2024-11-07] MEDS: FAMOTIDINE 20 MG TABLET PO ONE (16:22)
[2024-11-07] MEDS: CIPROFLOXACIN 250 MG TABLET PO SCH (20:20)
[2024-11-08 05:18] LABS: BASOPHILS % (AUTO) 0.3 %; EOSINOPHILS # (AUTO) 0.1 10^3/uL (0.0-0.7); EOSINOPHILS % (AUTO) 1.1 %; HCT - HEMATOCRIT 29.2 % (37.0-47.0); HGB - HEMOGLOBIN 8.3 g/dL (12.0-16.0); LYMPHOCYTES # (AUTO) 0.7 10^3/uL (1.5-3.5); LYMPHOCYTES % (AUTO) 6.8 %; MEAN CORPUSCULAR HEMOGLOBIN 25.9 pg (27.0-31.0); MEAN CORPUSCULAR HGB CONC 28.4 g/dL (32.0-36.0); MEAN PLATELET VOLUME 9.3 fL (7.9-10.8); MONOCYTES # (AUTO) 0.8 10^3/uL (0.0-1.0); MONOCYTES % (AUTO) 6.9 %; NEUTROPHILS # (AUTO) 8.9 10^3/uL (1.5-6.6); NEUTROPHILS % (AUTO) 81.8 %; NRBC ABSOLUTE COUNT (AUTO) 0.02 x10^3/uL; NUCLEATED RED BLOOD CELLS AUTO 0.2 /100WBC; PLT - PLATELET COUNT 423 10^3/uL (130-450); RED BLOOD COUNT 3.21 10^6/uL (4.20-5.40); RED CELL DISTRIBUTION WIDTH 21.2 % (12.0-15.0); WHITE BLOOD COUNT 10.8 x10^3/uL (4.8-10.8)
[2024-11-08 05:26] LABS: SLIDE REVIEW? Indicated
[2024-11-08 05:36] LABS: CALCIUM 9.9 mg/dL (8.5-10.3); CREATININE 0.6 mg/dL (0.6-1.3); POTASSIUM 4.3 mmol/L (3.5-4.5)
[2024-11-08 05:47] LABS: PLATELET ESTIMATE, MANUAL NORMAL (130-450,000) (NORMAL); PLATELET MORPHOLOGY NORMAL APPEARANCE (NORMAL); WBC MORPHOLOGY (MULTIPLE) NORMAL APPEARANCE (NORMAL)
[2024-11-08 07:31] VITALS: BP 122/74; TEMP 97; O2SAT 92
[2024-11-08] MEDS: ACETAMINOPHEN 325 MG TABLET PO PRN (08:36)
--- NOTE | 2024-11-08 11:42 | Discharge Summary ---
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 Discharging on ciprofloxacin Hydronephrosis, rightexchanged ureteral stent 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being discharged to hospice HPI History of Present Illness: 69-year-old female PMH of GERD, GI bleed, right renal mass requiring stents presents to the hospital with abdominal pain and flank pain. She has history of noncompliance with medication/treatment regimen. Unsure if this is by choice or if it is a developing dementia. She was seen by an oncologist and was recommended for PET/CT. She never got this done and endorsed to the ER provider that she had no idea what he was talking about. In the ER, workup was significant for worsening metastatic disease. CT abdomen/pelvis shows liver mets, pelvic mets. Chest CT shows extensive malignancy above the diaphragms and enlarged lymph nodes. She has right sided hydronephrosis, so urology was contacted by ER provider. Plans were made for her to come into the hospital for antibiotics and IV fluids and ureteral stent would be placed soon. Hospitalist was contacted for admission for sepsis as she had a high heart rate, low blood pressure, elevated white blood cell count and likely UTI on UA CONSULTS | PROCEDURES Procedures: Ureteral stent exchange HOSPITAL COURSE Hospital Course: Patient was brought into the hospital and started on antibiotics and fluids for sepsis. Urology was consulted, patient underwent ureteral stent replacement. Hospice was consulted, and patient is now discharging onto hospice service. Comfort meds were sent to pharmacy ALLERGIES Allergies Allergy/AdvReac Type Severity Reaction Status Date / Time bee venom protein (honey bee) Allergy Severe Anaphylaxis Verified 11/05/24 12:14 ammonia Allergy Difficulty Verified 11/05/24 12:14 breathing aspirin Allergy Rash Verified 11/05/24 12:14 ibuprofen Allergy Hallucinati Verified 11/05/24 12:14 ons MEDICATIONS Ambulatory Orders Medication Instructions Recorded Confirmed pantoprazole 40 mg tablet,delayed 40 mg PO DAILY 11/0611/06/24 release bisacodyl 10 mg rectal suppository 10 mg MI DAILY PRN Constipation #3 11/07/24 (Dulcolax (bisacodyl)) ea ciprofloxacin HCl 250 mg tablet 500 mg (2 x 250 mg) PO BID 11 days 11/07/24 #44 tabs lorazepam 0.5 mg tablet (Ativan) 0.5 mg PO Q6H PRN Anx iety #10 tabs 11/07/24 morphine concentrate 100 mg/5 mL 5 mg (0.25 mL) PO Q4H PRN pain or 11/07/24 (20 mg/mL) oral solution breathlessness #30 mL olanzapine 5 mg disintegrating 5 mg PO DAILY PRN Agit ation, 11/07/24 tablet (Zyprexa Zydis) nausea and vomiting #10 tabs sennosides 8.6 mg tablet (senna) 8.6 mg PO BID PRN Con stipation #10 11/07/24 tabs PHYSICAL EXAM AT DISCHARGE Vital Signs: Vital Signs x48h Temp Pulse Resp BP Pulse Ox O2 Flow Rate 11/08/24 07:29 36.1 C L 87 16 122/74 92 0 General Appearance: positive No acute distress and Alert Eyes Bilateral: positive Normal inspection and PERRL ENT: positive ENT inspection nml Neck: positive Nml inspection Respiratory: positive Chest non-tender Cardiovascular: positive Regular rate & rhythm Peripheral Pulses: positive 2+ Abdomen: positive Tenderness (Mild) Back: positive Nml inspection Skin: positive Color nml Extremities: positive Non-tender Neurologic/Psychiatric: positive Oriented x3 LABS 11/08/24 05:10 11/08/24 05:10 SEPSIS Current Stage of Sepsis: Resolved FOLLOW UP Follow Up: With hospice TIME SPENT Time Spent in Discharge (Minutes): 45 Discharge Plan Discharge Patient Disposition: 50 Hospice/Home DC/Xfer Condition: Serious Medically Cleared Date:: 11/07/24 Prescriptions: New ciprofloxacin HCl 250 mg Tablet 500 mg PO BID 11 Days Qty: 44 0RF sennosides [senna] 8.6 mg Tablet 8.6 mg PO BID PRN (Reason: Constipation) Qty: 10 0RF Rx Instructions: Take one tablet, by mouth, twice a day as needed for constipation. morphine concentrate 100 mg/5 mL (20 mg/mL) Solution 5 mg PO Q4H PRN (Reason: pain or breathlessness) Qty: 30 0RF Rx Instructions: Take 0.25 ml (equal to 5 mg) by mouth, or under the tongue, every 4 hours as needed for moderate to severe pain. lorazepam [Ativan] 0.5 mg Tablet 0.5 mg PO Q6H PRN (Reason: Anxiety) Qty: 10 0RF Rx Instructions: Take one tablet, by mouth, every 6 hours as needed for anxiety. bisacodyl [Dulcolax (bisacodyl)] 10 mg Suppository 10 mg MI DAILY PRN (Reason: Constipation) Qty: 3 0RF Rx Instructions: Unwrap and insert one suppository rectally daily, as needed for constipation. olanzapine [Zyprexa Zydis] 5 mg Tablet,Disintegrating 5 mg PO DAILY PRN (Reason: Agitation, nausea and vomiting) Qty: 10 0RF Rx Instructions: Dissolve one tablet, in mouth, twice daily as needed for agitation or nausea and/or vomiting. Continued pantoprazole 40 mg tablet,delayed release (DR/EC) 40 mg PO DAILY Patient Comments: TAKE ONE TABLET BY MOUTH EVERY MORNING Activity Restrictions: No Restrictions Diet: Regular Health Concerns: You have history of widely metastatic cancer, which is getting worse. You came in with hydronephrosis due to a blocked ureter from this cancer. You had a stent replacement with urology, and has been cleared by urology to go home. Overall plan of care was discussed with you, your family, and hospice care as your cancer is very aggressive. You are being discharged home on hospice. I have sent some medications to ensure that you are comfortable as you are dying. Print Language: [place] Patient Instructions: Hospice Nears Stand Alone Forms: PCP List Follow-up Care: Paula Thibodeaux, STORAGE ADMINISTRATOR, MSN, PRINTING MECHANIST [Primary Care Provider] -"
== END 2024-11-08 13:30 | disposition hospice, home (50) | DRG 854 ==
LOC: ED 11:48 → MS2 16:57
PROVIDERS: ADMIT Nurse Practitioner Acute Care; ATTEND Nurse Practitioner Acute Care
DX: A41.9 Sepsis, unspecified organism; N13.6 Pyonephrosis; K21.9 Gastro-esophageal reflux disease without esophagitis; C80.1 Malignant (primary) neoplasm, unspecified; Z87.891 Personal history of nicotine dependence; Z91.199 Patient's noncompliance with other medical treatment and regimen due to unspecified reason; Z91.148 Patient's other noncompliance with medication regimen for other reason; R03.1 Nonspecific low blood-pressure reading; Z79.899 Other long term (current) drug therapy; C66.1 Malignant neoplasm of right ureter; C78.00 Secondary malignant neoplasm of unspecified lung; C78.7 Secondary malignant neoplasm of liver and intrahepatic bile duct